=== PATIENT | male | born 1965 | race Caucasian/White ===

== ENCOUNTER → 2017-11-27 10:58 | Outpatient (CLI) | payer MEDICARE, MEDICAID, SELFPAY ==
[2017-11-27 13:09] LABS: Anion Gap 9 (5-15); BUN 8 mg/dL (7-18); BUN/Creat Ratio 10.7 RATIO (10-20); Calcium,Total 8.9 mg/dL (8.5-10.1); Chloride 104 mmol/L (98-107); Cholesterol 133 mg/dL (200); Creatinine, Serum 0.75 mg/dL (0.70-1.30); EST Glomerular Filtration Rate 115 mL/min (>60); Est Glom Filt Rate - Afr Amer 139 mL/min (>60); Glucose 154 mg/dL (74-106); High Density Lipoprotein 45 mg/dL; Potassium 3.7 mmol/L (3.5-5.1); Sodium Level 141 mmol/L (136-145); Triglycerides 149 mg/dL; Very Low Density Lipoprotein 30 mg/dL (5-40)
== END ==
PROVIDERS: Family Provider Family Medicine; PCP Family Medicine; Visit Provider Family Medicine
DX: E11.9 Type 2 diabetes mellitus without complications (principal)
CPT/HCPCS: 36415; 80048; 80061

== ENCOUNTER → 2018-02-12 12:18 | Outpatient (CLI) | payer MEDICARE, MEDICAID, SELFPAY ==
--- NOTE | 2018-02-12 12:22 | RAD_ITS ---
STUDY: X-RAY - RIGHT WRIST REASON FOR EXAM: Male, 53 years old. Pain for one month. TECHNIQUE: 2 view(s) of the wrist were obtained. COMPARISON: None. FINDINGS: Normal visualized distal radius and ulna. Normal radiocarpal articulation. Normal distal radioulnar articulation. Normal carpal bones. 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 Normal remaining intercarpal articulations. Normal carpometacarpal articulation of the thumb. Normal second through fifth carpometacarpal articulations. Normal visualized metacarpal bones. The soft tissue structures are unremarkable. There is no demonstrated osseous destructive lesion. There is no demonstrated acute fracture. 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 Electronically Signed: Tomi Padilla MD at 19:43 EDT , Service support ,
== END ==
PROVIDERS: Family Provider Family Medicine; PCP Family Medicine; Visit Provider Family Medicine
DX: M25.531 Pain in right wrist (principal)
CPT/HCPCS: 73100

== ENCOUNTER → 2018-05-31 14:19 | Outpatient (CLI) | payer MEDICARE, MEDICAID, SELFPAY ==
--- NOTE | 2018-05-31 14:21 | CT_ITS ---
STUDY: CT LUMBAR SPINE WITHOUT CONTRAST REASON FOR EXAM: Male, 53 years old. LBP, PAIN, N/T TO RT BUTTOCK DOWN LEG, MULTIPLE BACK INJURIES, HX-DB, NHL WITH CHEMO. RADIATION DOSAGE (If Supplied By Facility): CTDIvol = ( 20.85 ) mGy, DLP = ( 461.35 ) mGycm TECHNIQUE: The patient was scanned in a multi detector CT scanner. High resolution transaxial imaging was performed. Images were obtained from to . Sagittal and coronal images were reconstructed. Individualized dose optimization techniques were used for this CT. COMPARISON: MRI dated December 19, 2014 FINDINGS: Normal lumbar lordosis. There is minimal scoliosis Normal vertebrae of the lumbar spine. L1-2: There is minimal disc space narrowing and endplate spondylosis. There is no significant disc herniation, central canal or foraminal stenosis. L2-3: There is minimal disc space narrowing and endplate spondylosis. There is no significant disc herniation, central canal or foraminal stenosis. L3-4: There is mild disc space narrowing and endplate spondylosis. There is no significant disc herniation, central canal or foraminal stenosis. L4-5: There is mild disc space narrowing and endplate spondylosis. There is no significant disc herniation, central canal or foraminal stenosis. L5-S1: There is moderate disc space narrowing and endplates spondylosis. There is facet arthropathy with grade 1 anterolisthesis without significant central canal stenosis. There is mild bilateral foraminal stenosis. There is mild aortoiliac atherosclerosis. There is intact intraspinal catheter with its tip at T12 CT/Spine Lumbar without Contrast IMPRESSION: L5/S1: Degenerative grade 1 anterolisthesis with mild bilateral foraminal stenosis. Electronically Signed: Zehra Landa MD at 10:31 EST Tel , Service support ,
== END ==
PROVIDERS: Family Provider Family Medicine; PCP Family Medicine; Referring Provider Anesthesiology Pain Medicine; Visit Provider Anesthesiology Pain Medicine
DX: M54.9 Dorsalgia, unspecified (principal); M79.606 Pain in leg, unspecified
CPT/HCPCS: 72131

== ENCOUNTER 2018-09-18 08:15 | Day surgery (SDC) | payer MEDICARE, MEDICAID, SELFPAY ==
[2018-09-04 13:04] VITALS: BMI 31.1
[2018-09-18 08:36] VITALS: BP 135/90; PULSE 85; RESP 16; TEMP 36; O2SAT 95; BMI 31.1
[2018-09-18 08:57] LABS: Bedside Glucose 102 mg/dL (70-110)
--- NOTE | 2018-09-18 09:30 | IMM_PTH ---
PATIENT: KARINA PIMENTEL LOC: EN U#:[id number] AGE/SX: 53/M ROOM: RE09/18/[address]: Dr. Roberto Stokes MD : 1965 BED: DIS: 09/18/2018 SPEC #: [id number] RECD: 09/18/18 13:17 STATUS: RADHA FADIA #: [id number] ZORAIDA: 09/18/18 09:[address]: Roberto Stokes DEPT: IMMUNOHISTOCHEMISTRY RECD BY: Krissy Rush ENTERED: 09/18/18 13:17 SP TYPE: IMMUNO OTHR DR: Dr. Tereso Pereira MD Tissues: A - Stomach, NOS B - Esophageal mucous membrane Procedures: H Pylori (initial) P53 (initial) PHYSICIAN & INSTITUTION [place] [address] SPECIMEN INFORMATION: Tissue Source: A - Antrum biopsy, B - Gastroesophageal junction biopsy Clinical Info: Sanders's esophagus Specimen Number: [id number] A & B CPT code: 62477 x2 METHODOLOGY: Deparaffinized sections of prefer/formalin-fixed tissue or PAP/DQ stained slides are incubated with monoclonal/polyclonal antibodies/oligonucleotide probes. Localization is made via biotin free immunoperoxidase method. Appropriate controls are performed and reacted as expected. Results on target cell population are indicated in the following table: RESULTS: ANTIBODY / CLONE RESULT Block A H Pylori (polyclonal) negative Block B P53 (DO-7) positive, <10% dim These tests were developed and their performance characteristics determined by [facility]. They may not have been cleared or approved by the U.S. Food and Drug Administration. The FDA has determined that such clearance or approval is not necessary. INTERPRETATION: A. Antrum, biopsy: Negative for Helicobacter pylori organisms. B. Gastroesophageal junction biopsy: No evidence of malignancy.; AM:sam 09/20/18
--- NOTE | 2018-09-18 09:30 | EGD_PTH ---
PATIENT: KARINA PIMENTEL LOC: EN U#:[id number] AGE/SX: 53/M ROOM: RE09/18/[address]: Dr. Roberto Stokes MD : 1965 BED: DIS: 09/18/2018 SPEC #: [id number] RECD: 09/18/18 11:43 STATUS: RADHA FADIA #: [id number] ZORAIDA: 09/18/18 09:[address]: Roberto Stokes DEPT: SURGICAL PATHOLOGY RECD BY: Guillermo Lockhart ENTERED: 09/18/18 13:02 SP TYPE: EGD BIOPSY OTHR DR: Dr. Tereso Pereira MD Tissues: A - Gastric mucous membrane B - Gastric mucous membrane Procedures: Special Stain Group II Surgery Specimen Level IV Alcian Blue/PAS (control) HEADER OPER[place] [place] DIAGNOSIS: Sanders's esophagus TISSUE SUBMITTED: A - Antrum biopsy for H. pylori and path, B - GE junction biopsy MICROSCOPIC DIAGNOSIS A. Gastric antrum, biopsy: Mild chronic inflammation. B. 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 No evidence of dysplasia. Mild chronic inflammation. Focal changes of reflux. AM:sam 09/19/18 COMMENT A. The results of immunohistochemistry for Helicobacter pylori will be reported separately ([id number]). B. Alcian blue/PAS stain with matched control supports the above diagnosis. Immunohistochemistry ([id number]) supports the above diagnosis. MICROSCOPIC DESCRIPTION Slides are reviewed. GROSS DESCRIPTION A - Received in fixative is one container labeled with the patient's name and designated antrum biopsy. The specimen consists of one irregular fragment of light hernandez soft tissue that measures 0.3 x 0.2 x 0.1 cm. The specimen is totally submitted in one cassette. B - Received in fixative is one container labeled with the patient's name and designated GE junction biopsy. The specimen consists of multiple irregular fragments of light hernandez soft tissue that in aggregate measure 1 x 0.8 x 0.2 cm. The specimen is totally submitted in one cassette. / ANGELLA:sam 09/18/18 TC:4 CPT: 17273 x2, 35654
[2018-09-18 09:44] LABS: AST(SGOT) 27 U/L (15-37); Alanine Aminotransfer ALT/SGPT 55 U/L (16-61); Albumin, Serum 3.8 g/dL (3.2-5.0); Alkaline Phosphatase 137 U/L (45-117); Anion Gap 10 (5-15); BUN 7 mg/dL (7-18); BUN/Creat Ratio 8.4 RATIO (10-20); Bilirubin, Direct 0.14 mg/dL (0.00-0.30); Calcium,Total 9.1 mg/dL (8.5-10.1); Chloride 103 mmol/L (98-107); Cholesterol 140 mg/dL (200); Creatinine, Serum 0.83 mg/dL (0.70-1.30); EST Glomerular Filtration Rate 102 mL/min (>60); Est Glom Filt Rate - Afr Amer 123 mL/min (>60); Estimated Creatinine Clearance 77.66 ml/min; Globulin 4.1 g/dL (2.2-4.2); Glucose 106 mg/dL (74-106); High Density Lipoprotein 58 mg/dL; Potassium 4.1 mmol/L (3.5-5.1); Protein, Total 7.9 g/dL (6.4-8.2); Sodium Level 143 mmol/L (136-145); Triglycerides 95 mg/dL; Very Low Density Lipoprotein 19 mg/dL (5-40)
[2018-09-18 10:10] VITALS: BP 121/68; BP 135/90; PULSE 85; RESP 18; TEMP 36.2; O2SAT 95
--- NOTE | 2018-09-18 10:11 | OP.ENDO_ITS ---
Patient Name: Sanya Viramontes Procedure Date: 09/18/2018 9:46 AM Date of : 1965 Age: 53 Procedure: Upper GI endoscopy Indications: Surveillance for malignancy due to personal history of Sanders's esophagus Providers: Roberto Stokes MD Medicines: Monitored Anesthesia Care Patient Profile: This is a 53 year old male. Refer to note in patient chart for documentation of history and physical. Complications: No immediate complications. Estimated blood loss: Minimal. Procedure: Pre-Anesthesia Assessment: - Prior to the procedure, a History and Physical was performed, and patient medications and allergies were reviewed. The patient's tolerance of previous anesthesia was also reviewed. The risks and benefits of the procedure and the sedation options and risks were discussed with the patient. All questions were answered, and informed consent was obtained. Prior Anticoagulants: The patient has taken no previous anticoagulant or antiplatelet agents. After reviewing the risks and benefits, the patient was deemed in satisfactory condition to undergo the procedure. After obtaining informed consent, the endoscope was passed under direct vision. Throughout the procedure, the patient's blood pressure, pulse, and oxygen saturations were monitored continuously. The gastroscope was introduced through the mouth, and advanced to the second part of duodenum. The upper GI endoscopy was accomplished without difficulty. The patient tolerated the procedure well. Scope In: 9:57:21 AM Scope Out: 10:04:19 AM Total Procedure Duration Time 0 hours 6 minutes 58 seconds Findings: There were esophageal mucosal changes secondary to established long-segment Sanders's disease present in the lower third of the esophagus. The maximum longitudinal extent of these mucosal changes was 7 cm in length. Mucosa was biopsied with a cold forceps for histology in 4 quadrants at intervals of 1.5 cm in the lower third of the esophagus. One specimen bottle was sent to pathology. Mild inflammation characterized by erythema was found in the first portion of the duodenum. The exam was otherwise without abnormality. Impression: - Esophageal mucosal changes secondary to established long-segment Sanders's disease. Biopsied. - Duodenitis. - The examination was otherwise normal. Recommendation: - Await pathology results. - Repeat upper endoscopy in 2 years for surveillance. - Resume previous diet. - Discharge patient to home. - Continue present medications. Procedure Code(s): --- Professional --- 03071, Esophagogastroduodenoscopy, flexible, transoral; with biopsy, single or multiple Diagnosis Code(s): --- Professional --- K22.70, Sanders's esophagus without dysplasia K29.80, Duodenitis without bleeding CPT copyright 2017 [employer]. All rights reserved. The codes documented in this report are preliminary and upon fish hatchery manager review may be revised to meet current compliance requirements. Roberto Stokes MD 09/18/2018 10:11:26 AM This report has been signed electronically. Number of Addenda: 0 Note Initiated On: 09/18/2018 9:46 AM
[2018-09-18 10:15] VITALS: BP 113/75; BP 135/90; PULSE 78; RESP 18; O2SAT 97
[2018-09-18 10:20] VITALS: BP 116/80; BP 135/90; PULSE 75; RESP 18; O2SAT 96
[2018-09-18 10:25] VITALS: BP 132/83; BP 135/90; PULSE 80; RESP 18; TEMP 36.2; O2SAT 97
[2018-09-18 10:46] VITALS: BP 135/90
== END 2018-09-18 10:50 | disposition home or self-care (01) ==
LOC: EN 08:16 → AC 08:17
PROVIDERS: Family Provider Family Medicine; PCP Family Medicine; Referring Provider Surgery; Visit Provider Surgery
PROC: 0DJ08ZZ Inspection of Upper Intestinal Tract, Via Natural or Artificial Opening Endoscopic (ICD-10-PCS; CPT 43235; principal; 2018-09-18 09:25)
DX: K22.70 Barrett's esophagus without dysplasia (principal); K29.80 Duodenitis without bleeding; K44.9 Diaphragmatic hernia without obstruction or gangrene; G89.29 Other chronic pain; E11.9 Type 2 diabetes mellitus without complications; E78.00 Pure hypercholesterolemia, unspecified; M19.90 Unspecified osteoarthritis, unspecified site; E66.3 Overweight; Z68.31 Body mass index [BMI] 31.0-31.9, adult; Z79.84 Long term (current) use of oral hypoglycemic drugs; Z79.1 Long term (current) use of non-steroidal anti-inflammatories (NSAID); Z79.899 Other long term (current) drug therapy; Z87.891 Personal history of nicotine dependence; Z85.72 Personal history of non-Hodgkin lymphomas; Z86.2 Personal history of diseases of the blood and blood-forming organs and certain disorders involving the immune mechanism; Z96.642 Presence of left artificial hip joint
CPT/HCPCS: 43239; 36415; 80048; 80061; 80076; 82962; 88305; 88313; 88342; J7120

== ENCOUNTER → 2019-02-22 13:34 | Outpatient (CLI) | payer MEDICARE, MEDICAID, SELFPAY ==
[2019-02-22 15:58] LABS: Absolute Lymphocyte Count 2.94 X10^3/uL (0.83-4.51); Absolute Neutrophil Count 8.6 X10^3/uL (2.0-7.7); Basophil# 0.09 X10^3/uL; Basophil% 0.7 % (0-1); Eosinophil# 0.17 X10^3/uL; Eosinophils% 1.3 % (0-5); Hematocrit 42.2 % (40-54); Hemoglobin 14.1 g/dL (13.0-16.5); Lymphocyte # 2.94 X10^3/ul (4.0); Lymphocyte % 23.1 % (19-41); Mean Corp Hgb Conc 33.4 g/dL (32-36); Mean Corpuscular Volume 92.7 fL (80-94); Mean Platelet Vol. 10.6 fl (6.2-12.0); Monocyte# 0.79 X10^3/uL; Monocyte% 6.2 % (0-10); NRBC Flagged by Analyzer 0 % (0-5); Neutrophil # 8.55 X10^3/uL (2.7-7.7); Neutrophil % 67.1 % (47-70); Platelet Count 347 K/mm3 (150-450); RBC Distribution Width CV 12.2 % (11.6-14.6); RBC Distribution Width SD 41.8 fl (35.1-43.9); Red Blood Count 4.55 M/mm3 (4.6-6.2); White Blood Count 12.8 K/mm3 (4.4-11.0)
[2019-02-22 16:08] LABS: Anion Gap 13 (5-15); BUN 9 mg/dL (7-18); BUN/Creat Ratio 10.8 RATIO (10-20); Chloride 102 mmol/L (98-107); Cholesterol 153 mg/dL (200); Creatinine, Serum 0.83 mg/dL (0.70-1.30); EST Glomerular Filtration Rate 101 mL/min (>60); Est Glom Filt Rate - Afr Amer 123 mL/min (>60); Glucose 165 mg/dL (74-106); High Density Lipoprotein 61 mg/dL; Potassium 4.1 mmol/L (3.5-5.1); Sodium Level 142 mmol/L (136-145); Triglycerides 102 mg/dL; Very Low Density Lipoprotein 20 mg/dL (5-40)
[2019-02-22 17:02] LABS: Hemoglobin A1c 7.3 % (4.2-6.3)
== END ==
PROVIDERS: Family Provider Family Medicine; PCP Family Medicine; Referring Provider Family Medicine; Visit Provider Family Medicine
DX: E11.9 Type 2 diabetes mellitus without complications (principal); E78.5 Hyperlipidemia, unspecified; M19.90 Unspecified osteoarthritis, unspecified site; Z85.6 Personal history of leukemia
CPT/HCPCS: 36415; 80048; 80061; 83036; 85025

== ENCOUNTER → 2019-05-29 11:18 | Outpatient (CLI) | payer MEDICARE, MEDICAID, SELFPAY ==
[2019-05-07 12:56] VITALS: BMI 31.1
[2019-05-29 12:24] LABS: Absolute Lymphocyte Count 3.46 X10^3/uL (0.83-4.51); Absolute Neutrophil Count 7.1 X10^3/uL (2.0-7.7); Basophil# 0.09 X10^3/uL; Basophil% 0.8 % (0-1); Eosinophil# 0.21 X10^3/uL; Eosinophils% 1.8 % (0-5); Hematocrit 43.5 % (40-54); Hemoglobin 14.4 g/dL (13.0-16.5); Lymphocyte # 3.46 X10^3/ul (4.0); Lymphocyte % 29.1 % (19-41); Mean Corp Hgb Conc 33.1 g/dL (32-36); Mean Corpuscular Hgb 30.6 pg (27.0-32.0); Mean Corpuscular Volume 92.4 fL (80-94); Mean Platelet Vol. 10.2 fl (6.2-12.0); Monocyte# 0.94 X10^3/uL; Monocyte% 7.9 % (0-10); NRBC Flagged by Analyzer 0 % (0-5); Neutrophil # 7.05 X10^3/uL (2.7-7.7); Neutrophil % 59.1 % (47-70); Platelet Count 326 K/mm3 (150-450); RBC Distribution Width CV 13.4 % (11.6-14.6); RBC Distribution Width SD 45.5 fl (35.1-43.9); Red Blood Count 4.71 M/mm3 (4.6-6.2); White Blood Count 11.9 K/mm3 (4.4-11.0)
[2019-05-29 13:15] LABS: Anion Gap 9 (5-15); BUN 15 mg/dL (7-18); BUN/Creat Ratio 20.3 RATIO (10-20); Calcium,Total 9.1 mg/dL (8.5-10.1); Chloride 103 mmol/L (98-107); Cholesterol 192 mg/dL (200); Creatinine, Serum 0.74 mg/dL (0.70-1.30); EST Glomerular Filtration Rate 116 mL/min (>60); Est Glom Filt Rate - Afr Amer 141 mL/min (>60); Glucose 91 mg/dL (74-106); High Density Lipoprotein 67 mg/dL; Potassium 3.6 mmol/L (3.5-5.1); Sodium Level 139 mmol/L (136-145); Triglycerides 109 mg/dL; Very Low Density Lipoprotein 22 mg/dL (5-40)
== END ==
PROVIDERS: Family Provider Family Medicine; PCP Family Medicine; Visit Provider Family Medicine
DX: C82.90 Follicular lymphoma, unspecified, unspecified site (principal); E11.9 Type 2 diabetes mellitus without complications
CPT/HCPCS: 36415; 80048; 80061; 85025

== ENCOUNTER → 2019-12-24 10:07 | Outpatient (CLI) | payer MEDICARE, MEDICAID, SELFPAY ==
[2019-05-07 12:56] VITALS: BMI 31.1
[2019-12-24 12:42] LABS: Anion Gap 6 (5-15); BUN 16 mg/dL (7-18); Calcium,Total 9.1 mg/dL (8.5-10.1); Chloride 107 mmol/L (98-107); Cholesterol 196 mg/dL (200); Creatinine, Serum 0.76 mg/dL (0.70-1.30); EST Glomerular Filtration Rate 112 mL/min (>60); Est Glom Filt Rate - Afr Amer 136 mL/min (>60); Glucose 119 mg/dL (74-106); High Density Lipoprotein 75 mg/dL; Potassium 3.9 mmol/L (3.5-5.1); Sodium Level 141 mmol/L (136-145); Triglycerides 95 mg/dL; Very Low Density Lipoprotein 19 mg/dL (5-40)
[2019-12-24 12:53] LABS: Hemoglobin A1c 8.3 % (3.8-5.6)
== END ==
PROVIDERS: PCP Family Medicine; Visit Provider Family Medicine
DX: I10 Essential (primary) hypertension (principal); E11.9 Type 2 diabetes mellitus without complications; E78.5 Hyperlipidemia, unspecified
CPT/HCPCS: 36415; 80048; 80061; 83036

== ENCOUNTER → 2020-03-17 13:24 | Outpatient (CLI) | payer MEDICARE, MEDICAID, SELFPAY ==
[2019-05-07 12:56] VITALS: BMI 31.1
[2020-03-17 15:49] LABS: Hemoglobin A1c 6.8 % (3.8-5.6)
[2020-03-17 15:50] LABS: Anion Gap 5 (5-15); BUN 12 mg/dL (7-18); BUN/Creat Ratio 15.8 RATIO (10-20); Calcium,Total 8.9 mg/dL (8.5-10.1); Chloride 104 mmol/L (98-107); Cholesterol 171 mg/dL (200); Creatinine, Serum 0.76 mg/dL (0.70-1.30); EST Glomerular Filtration Rate 112 mL/min (>60); Est Glom Filt Rate - Afr Amer 136 mL/min (>60); Glucose 96 mg/dL (74-106); High Density Lipoprotein 61 mg/dL; Potassium 3.7 mmol/L (3.5-5.1); Sodium Level 138 mmol/L (136-145); Triglycerides 122 mg/dL; Very Low Density Lipoprotein 24 mg/dL (5-40)
[2020-03-17 15:59] LABS: Microalbumin,Random Urine 19.6 mg/L (NO RANGE EST.); Microalbumin:Creatinine Ratio 47.3 mg/g CRE (<30 mg/g CRE)
== END ==
PROVIDERS: PCP Family Medicine; Referring Provider Family Medicine; Visit Provider Family Medicine
DX: E11.9 Type 2 diabetes mellitus without complications (principal)
CPT/HCPCS: 36415; 80048; 80061; 82043; 82570; 83036

== ENCOUNTER → 2020-12-21 09:01 | Outpatient (CLI) | payer MEDICARE, MEDICAID, SELFPAY ==
[2019-05-07 12:56] VITALS: BMI 31.1
[2020-12-21 14:27] LABS: Anion Gap 5 (5-15); BUN 10 mg/dL (7-18); BUN/Creat Ratio 12.6 RATIO (10-20); Calcium,Total 9.1 mg/dL (8.5-10.1); Chloride 106 mmol/L (98-107); Cholesterol 178 mg/dL (200); EST Glomerular Filtration Rate 106 mL/min (>60); Est Glom Filt Rate - Afr Amer 129 mL/min (>60); Glucose 121 mg/dL (74-106); High Density Lipoprotein 57 mg/dL; Potassium 3.9 mmol/L (3.5-5.1); Sodium Level 140 mmol/L (136-145); Triglycerides 104 mg/dL; Very Low Density Lipoprotein 21 mg/dL (5-40)
[2020-12-22 01:51] LABS: Microalbumin,Random Urine 23.9 mg/L (NO RANGE EST.); Microalbumin:Creatinine Ratio 30.3 mg/g CRE (<30 mg/g CRE)
== END ==
PROVIDERS: PCP Family Medicine; Visit Provider Family Medicine
DX: E11.9 Type 2 diabetes mellitus without complications (principal)
CPT/HCPCS: 36415; 80048; 80061; 82043; 82570

== ENCOUNTER → 2021-04-15 11:06 | Outpatient (CLI) | payer MEDICARE, MEDICAID, SELFPAY ==
[2021-04-15 12:32] LABS: Hematocrit 45.2 % (40-54); Hemoglobin 15.1 g/dL (13.0-16.5); Mean Corp Hgb Conc 33.4 g/dL (32-36); Mean Corpuscular Hgb 31.1 pg (27.0-32.0); Mean Corpuscular Volume 93.2 fL (80-94); Mean Platelet Vol. 10.5 fl (6.2-12.0); Platelet Count 286 K/mm3 (150-450); RBC Distribution Width CV 12.7 % (11.6-14.6); RBC Distribution Width SD 43.4 fl (35.1-43.9); Red Blood Count 4.85 M/mm3 (4.6-6.2)
[2021-04-15 13:11] LABS: Vitamin B12 646 pg/mL (211-911)
[2021-04-15 13:20] LABS: ALB/GLOB Ratio 0.9 RATIO (0.9-2.4); AST(SGOT) 41 U/L (15-37); Alanine Aminotransfer ALT/SGPT 92 U/L (16-61); Albumin, Serum 3.7 g/dL (3.2-5.0); Alkaline Phosphatase 155 U/L (45-117); Anion Gap 7 (5-15); BUN 13 mg/dL (7-18); BUN/Creat Ratio 19.1 RATIO (10-20); Calcium,Total 8.7 mg/dL (8.5-10.1); Chloride 107 mmol/L (98-107); Creatinine, Serum 0.68 mg/dL (0.70-1.30); EST Glomerular Filtration Rate 127 mL/min (>60); Est Glom Filt Rate - Afr Amer 154 mL/min (>60); Globulin 3.9 g/dL (2.2-4.2); Glucose 151 mg/dL (74-106); Potassium 3.7 mmol/L (3.5-5.1); Protein, Total 7.6 g/dL (6.4-8.2); Sodium Level 142 mmol/L (136-145); Thyroid Stim Hormone (TSH) 1.86 uIU/mL (0.358-3.74)
== END ==
PROVIDERS: PCP Family Medicine; Referring Provider Psychiatry & Neurology Neurology; Visit Provider Psychiatry & Neurology Neurology
DX: T84.093A Other mechanical complication of internal left knee prosthesis, initial encounter (principal); E11.9 Type 2 diabetes mellitus without complications; G56.01 Carpal tunnel syndrome, right upper limb
CPT/HCPCS: 36415; 80053; 82607; 82746; 84443; 85027

== ENCOUNTER → 2021-04-21 12:04 | Outpatient (CLI) | payer MEDICARE, MEDICAID, SELFPAY ==
[2021-04-25 09:07] LABS: HEPATITIS B SURFACE AG Negative (Negative); Hepatitis A IgM Antibody Negative (Negative); Hepatitis B Core AB IgM Negative (Negative)
[2021-04-25 10:33] LABS: Hep C Antibodies <0.1 s/co ratio (0.0-0.9)
== END ==
PROVIDERS: PCP Family Medicine; Referring Provider Psychiatry & Neurology Neurology; Visit Provider Psychiatry & Neurology Neurology
DX: R74.01 Elevation of levels of liver transaminase levels (principal)
CPT/HCPCS: 36415; 80074

== ENCOUNTER → 2021-07-05 11:31 | Outpatient (CLI) | payer MEDICARE, MEDICAID, SELFPAY ==
--- NOTE | 2021-07-05 12:21 | NEURO ---
NCS and/or EMG Patient Report Ordering Doctor: Tyrese Chapman DATE OF SERVICE: 07/05/21 Indication: Wrist pain and intermittent numbness of digits 1-4 on the right. Evaluate for median neuropathy at the wrist. Findings: Nerve conduction studies were performed in the right and left upper extremities. The right median motor study recording the abductor pollicis brevis showed a normal amplitude, borderline distal latency and borderline conduction velocity. The right ulnar motor study recording the abductor digiti minimi showed a normal amplitude, normal distal latency and normal conduction velocity. No conduction block or focal slowing was present across the elbow. The right median sensory response recording digit two showed a reduced amplitude, prolonged latency and markedly slowed conduction velocity. The right ulnar sensory response recording digit five showed a normal amplitude, latency and conduction velocity. The right radial sensory response recording over the extensor snuff box showed a normal amplitude, latency and conduction velocity. Right median-ulnar lumbrical / interosseous motor latencies showed a prolonged median latency compared to the ulnar. Needle EMG of the right upper extremity and cervical paraspinal muscles was performed. No denervation was seen in any muscle. Motor units in the right abductor pollicis brevis were slightly large and long duration with normal recruitment. All other motor unit morphology, activation and recruitment patterns were normal. Impression: This is an abnormal study. There is electrophysiologic evidence of median neuropathy across the right wrist. The pathophysiology is primarily demyelination with some evidence of chronic reinnervation in the thenar muscles. These findings would be compatible with the clinical diagnosis of carpal tunnel syndrome. In addition, there is no electrophysiologic evidence of a superimposed cervical radiculopathy in the right upper extremity. Wale Recinos D.O. Multi Select Codes Neurology Neurology Interp Codes: 47834-62 Musc test done w/n test comp (interp) and 70529-70 Nr cndj test 7-8 studies (interp)
== END ==
PROVIDERS: PCP Family Medicine; Visit Provider Psychiatry & Neurology Neurology
DX: G56.01 Carpal tunnel syndrome, right upper limb (principal); M54.2 Cervicalgia
CPT/HCPCS: 95886; 95910

== ENCOUNTER → 2021-07-17 07:34 | Outpatient (CLI) | payer MEDICARE, MEDICAID, SELFPAY ==
--- NOTE | 2021-07-17 07:35 | US_ITS ---
STUDY: ABDOMINAL ULTRASOUND - RIGHT UPPER QUADRANT REASON FOR VISIT: Male, 56 years old elevated LFTs TECHNIQUE: Ultrasound evaluation of the right upper quadrant was performed with real-time and static tyson-scale imaging. TECHNICAL QUALITY: Adequate. COMPARISON: None. FINDINGS: Liver: The liver measures 17 cm. There is increased echogenicity consistent with fatty infiltration. The bile ducts are within normal limits. There is hepatic color flow. The direction of portal flow is hepatopetal. There is no demonstrated mass lesion. Gallbladder: Normal distended gallbladder. The gallbladder wall measures 2 mm. There is a negative sonographic Horton''s sign. There is no pericholecystic fluid. There are no gallstones. Common Bile Duct (C.B.D.): The common bile duct measures 4 mm. Pancreas: Normal size of the head, body and tail of the pancreas. There is increased echogenicity of the pancreas. There is no demonstrated pancreatic mass or cyst. Right Kidney: Normal size of the right kidney. The right kidney measures 10.4 x 5.8 x 4.4 cm. Normal renal cortex. The right cortex measures 1.5 cm. There is no demonstrated renal mass or cyst. There is no right hydronephrosis. US/Liver IMPRESSION: Fatty liver, no discrete lesion Nonspecific echogenic pancreas Electronically Signed: Tomi Lyons MD at 8:26 EST , Service support ,
== END ==
PROVIDERS: PCP Family Medicine; Visit Provider Psychiatry & Neurology Neurology
DX: R74.01 Elevation of levels of liver transaminase levels (principal)
CPT/HCPCS: 76705

== ENCOUNTER 2021-09-30 06:18 | Day surgery (SDC) | payer MEDICARE, SELFPAY ==
--- NOTE | 2021-09-30 06:30 | PCM.HP.BLA ---
History and Physical Date of Admission: 09/30/21 Intake Visit Reasons: Discuss Carpal Tunnel Surgery Chief Complaint: right carpal tunnel Maintenance Supervisor Required: No Is patient in pain?: No Allergies No Known Allergies Allergy (Verified 09/14/21 13:19) Medications atorvastatin 10 mg PO DAILY 08/31/16 [History Confirmed 09/14/21] dexlansoprazole 60 mg PO DAILY 08/31/16 [History Confirmed 09/14/21] tizanidine 4 mg PO BID PRN 08/31/16 [History Confirmed 09/14/21] diclofenac sodium 1 % topical gel 2 g TOPICAL ONCE PRN 02/27/18 [History Confirmed 09/14/21] naproxen sodium 220 mg tablet 220 mg PO BID PRN 09/04/18 [History Confirmed 09/14/21] biotin 10 mg tablet 10 mg PO DAILY 04/15/21 [History Confirmed 09/14/21] empagliflozin 25 mg tablet 25 mg PO DAILY 04/15/21 [History Confirmed 09/14/21] famotidine 40 mg tablet 40 mg PO DAILY 04/15/21 [History Confirmed 09/14/21] metformin 500 mg tablet 500 mg PO DAILY 04/15/21 [History Confirmed 09/14/21] morphine 250 mg/25 mL in 0.9 % sodium chloride RESIDENTIAL INTERIOR DESIGNER syringe 10 mg IJ CONT 04/15/21 [History Confirmed 09/14/21] pregabalin 100 mg capsule 100 mg PO TID 04/15/21 [History Confirmed 09/14/21] glimepiride 1 mg tablet 2 mg PO DAILY tab 09/14/21 [History Confirmed 09/14/21] PFSH Medical History Chronic pain Chronic pain disorder Diabetes Failed total left knee replacement GERD (gastroesophageal reflux disease) High cholesterol Kidney stones Medical management NHL (non-Hodgkin's lymphoma) Osteoarthritis Overweight (BMI 25.0-29.9) pain pump trial Surgical History History of surgical biopsy s/p pain pump Status post left foot surgery Status post left hip replacement Total knee replacement status Family History Mother Cancer Father Diabetes Heart disease CVA (cerebral vascular accident) Social History (Reviewed 09/14/21 @ 13:19 by Jany Lopes Smoking Status: Former smoker Tobacco: How many years used: 20 Electronic Cigarette Use: not used how long ago did patient quit smoking: about 15 years ago alcohol intake: never substance use type: marijuana and other details: Uses edibles or CBC occationally for pain HPI HPI HPI: KARINA PIMENTEL, is a 56 M who presents to the office today for surgical discussion regarding right carpal tunnel syndrome. He was seen by Dr. Moreland but then was released from that practice. Clinical history and physical exam findings and testing were felt to be consistent with right carpal tunnel syndrome. This included an EMG on July 05, 2021 with findings consistent with right carpal tunnel syndrome. He has numbness first through fourth digits. 07/05/2021 EMG: This is an abnormal study. There is electrophysiologic evidence of median neuropathy across the right wrist. The pathophysiology is primarily demyelination with some evidence of chronic reinnervation in the thenar muscles. These findings would be compatible with the clinical diagnosis of carpal tunnel syndrome. In addition, there is no electrophysiologic evidence of a superimposed cervical radiculopathy in the right upper extremity. The patient is disabled. He is right arm dominant. He still does some work around the house and some jennifer work. He did not have a otr company driver to bring him to his surgery at the said date and he became upset with the 6th grade teacher/executive secretary. He claims that is why he was released from the orthopedic office. He has not had any previous surgery in the right hand. Is not on any anticoagulants. He does have a chronic pain disorder. ROS General General: Yes weight change; No appetite, fatigue, colon cancer, breast cancer or weakness HEENT HEENT: Yes difficulty swallowing; No eye injury, eye surgery, swollen glands or hoarseness Endo Endocrine: Yes diabetes mellitus; No thyroid disease, thyroid cancer, Hair loss, heat intolerance or cold intolerance Skin Skin: Yes rash; No changing moles Breast Breast: No left breast lump, right breast lump, nipple discharge, breast pain, abnormal mammogram, abnormal US or breast enlargement Musc Musculoskeletal: Yes back problems and arthritis; No rheumatoid arthritis, gout or joint pain Cardio Cardiovascular: No murmur, pacemaker, heart disease, atrial fibrillation, high blood pressure, heart attack, heart stent, palpitations, shortness of breat with exertion or chest pain Psych Psychiatric: No depression, anxiety or hearing voices Resp Respiratory: No shortness of breath, No sleep apnea, No cough, No COPD, No asthma, No emphysema and No wheezing Gastro Gastrointestinal: No abdominal pain, No nausea or vomiting, No diarrhea, No constipation, No blood in stool, Yes acid reflux, Yes hemorrhoids, No ulcers, No gallbladder problem and No black,tarry stools Fareed Hematologic: No blood thinners, No blood disorders, No bleeding, No anemia and No blood clots Neuro Neurologic: No system reviewed and no additional complaints, except as documented, No as per HPI, No abnormal gait, No abnormal hearing, No abnormal movements, No abnormal speech, No behavioral changes, No burning sensations, No confusion, No convulsions, No disequilibrium, No dizziness, No localized weakness, No frequent falls, No headache(s), No lack of coordination, No loss of vision, No memory loss, Yes numbness, No other visual disturbances, No radicular pain, No restless legs, No sensory deficit, No syncope, Yes tingling, No tremor(s), No weakness and No other Exam Const General: cooperative, comfortable and no acute distress Nutritional Appearance: average body habitus Orientation: alert and awake [facility] Head: normal to inspection Eyes General: appearance normal, both eyes and all related structures Neck Neck: normal visual inspection Resp Effort & Inspection: normal respiratory effort Auscultation: clear to auscultation bilaterally Cardio Rate: regular rate GI Inspection: normal to inspection Palpation: soft and no hepatosplenomegaly Musc Cervical Spine: normal cervical lordosis Skin General: no rashes or lesions noted Neuro General: patient alert and patient awake Extrem Other: Right thenar eminence slightly atrophic as compared to the left. [employer] strength bilaterally diminished slightly more so on the right. Light touch sensation diminished right first through fourth digits. Positive Tinel's sign Psych Appearance: grossly normal Assessment and Plan Assessment and Plan (1) Carpal tunnel syndrome of right wrist: Status: Acute Plan - Dr. Oseas Harper MD: I have offered the patient a right carpal tunnel release done under Funk block anesthesia. I have described him the technique, benefit, risk of alternatives. Absolutely no guarantees of success of been offered. He is aware that the innate damage already done to the nerve may partially recover. The procedure of carpal tunnel release is to inhibit further deterioration. He has had an opportunity to ask and have questions answered. We will schedule and proceed at his discretion. Copy: Dr. Tereso Harper M.D., F.A.C.S. I have re-examined the patient. There are no clinical changes since date of exam. Oseas Harper M.D., F.A.C.S.
--- NOTE | 2021-09-30 06:30 | EX.PCM.DISCH ---
Discharge Instructions Diet Discharge Diet: No restrictions Activity Discharge Activity: May Not Drive (No driving for 1 day.) and May Shower (May shower if your right arm is carefully wrapped in a plastic bag to keep clean and dry) Lifting Restrictions: You will not want to perform any lifting with the right hand. Additional Activity Instructions:: Elevate your right arm for comfort and to limit swelling. Follow Up Care Please Follow Up With: Oseas Harper MD When: Please contact the office for a follow-up appointment in 7 days. [phone] Test Results: Test results from this visit will be discussed in further detail at your follow-up appointment, if applicable. Discharge Plan Admission Attending Provider: Oseas Harper Primary Care Provider: Tereso Pereira Discharge Orders/Prescriptions Prescriptions: No Action naproxen sodium [Aleve] 220 mg tablet 220 mg PO BID PRN (Reason: Pain) RF: 0 pregabalin 100 mg capsule 100 mg PO TID RF: 0 metformin 500 mg tablet 500 mg PO DAILY RF: 0 Jardiance 25 mg tablet 25 mg PO DAILY RF: 0 famotidine 40 mg tablet 40 mg PO DAILY RF: 0 biotin 10 mg tablet 10 mg PO DAILY RF: 0 glimepiride 1 mg tablet 4 mg PO DAILY RF: 0 tizanidine 2 MG tablet 4 mg PO BID PRN (Reason: Pain) RF: 0 atorvastatin 10 MG tablet 10 mg PO DAILY RF: 0 dexlansoprazole 60 MG capsule,biphase delayed releas 60 mg PO DAILY RF: 0 morphine in 0.9 % sodium chlor 250 mg/25 mL pt controlled analgesia syring 10 mg IJ CONT RF: 0 simethicone [Gas-X Extra Strength] 125 mg Capsule 125 mg PO DAILY RF: 0
[2021-09-30 06:47] VITALS: BP 148/81; PULSE 72; RESP 16; TEMP 36.5; O2SAT 97; BMI 32.5
[2021-09-30 06:56] LABS: Bedside Glucose 192 mg/dL (74-106)
[2021-09-30] MEDS: Lactated Ringers 1,000 ML 15 ML IV (07:14)
[2021-09-30] MEDS: Bupivacaine Mpf 0.5% 30 ML VIAL (07:46)
[2021-09-30] MEDS: BACITRACIN/POLYMYXIN B 15 GM Tube 1 APPLIC (07:46)
--- NOTE | 2021-09-30 07:55 | PCM.OPRPT ---
Problems Associated Problem List Diagnoses (1) Carpal tunnel syndrome of right wrist: Report of Operation Date of Procedure: 09/30/21 Pre-Operative Diagnosis: Right carpal tunnel syndrome Post-Operative Diagnosis: Same Surgery/Procedure Performed:: Right carpal tunnel release Description of Surgical Findings:: Timeout informed consent was obtained. 56-year-old gentleman was taken to the operating placed on the table underwent [place] block anesthesia over the right of extremity tourniquet pressure to 250 mmHg pressure for 22 minutes. The right hand was sterilely prepped and draped. Curvilinear incision was made in the base the right palm sharp dissection carried down through the subcu tissue palmar fascia identified carefully incised it was incised to the proximal wrist crease along the fourth ray was incised to the mid palm. Good release was felt to have been achieved. Subdermal tissues approximated interrupted 3-0 chromic. Skin edges approximated simple sutures of 4-0 nylon. Topical antibiotic ointment Telfa 4 x 4 soft roll Tono wrap applied. Sponge and instrument and needle counts were reported the surgeon to be correct. It is of note that prior to placing the dressings 4 cc of 0.5% Marcaine was used additionally at the site as a local anesthetic. Specimens none. Drains none. Blood loss minimal. He was taken to the recovery room in satisfactory addition without apparent complication Oseas Harper M.D., F.A.C.S. Surgeon: Oseas Harper Type of Anesthesia: BlockSantos Anesthesiologist: Autumn Singh
[2021-09-30 08:05] VITALS: BP 114/76; BP 148/81; PULSE 66; TEMP 36.8; O2SAT 96
[2021-09-30 08:10] VITALS: BP 121/74; BP 148/81; PULSE 68; RESP 18; O2SAT 95
[2021-09-30 08:15] VITALS: BP 119/70; BP 148/81; PULSE 68; RESP 18; O2SAT 94
[2021-09-30 08:20] VITALS: BP 129/77; BP 148/81; PULSE 65; RESP 18; TEMP 36.5; O2SAT 94
[2021-09-30 09:02] VITALS: BP 112/74; BP 148/81; PULSE 64; RESP 16; TEMP 36.3; O2SAT 93
[2021-09-30 09:29] LABS: Absolute Lymphocyte Count 3.13 X10^3/uL (0.83-4.51); Absolute Neutrophil Count 4.3 X10^3/uL (2.0-7.7); Basophil% 1.1 % (0-1); Eosinophil# 0.39 X10^3/uL; Eosinophils% 4.4 % (0-5); Hemoglobin 14.7 g/dL (13.0-16.5); Lymphocyte # 3.13 X10^3/ul (0.83-4.51); Lymphocyte % 35.7 % (19-41); Mean Corp Hgb Conc 34.2 g/dL (32-36); Mean Corpuscular Hgb 31.1 pg (27.0-32.0); Mean Corpuscular Volume 90.9 fL (80-94); Mean Platelet Vol. 10.1 fl (6.2-12.0); Monocyte# 0.83 X10^3/uL; Monocyte% 9.5 % (0-10); NRBC Flagged by Analyzer 0 % (0-5); Neutrophil # 4.25 X10^3/uL (2.7-7.7); Neutrophil % 48.5 % (47-70); Platelet Count 254 K/mm3 (150-450); RBC Distribution Width CV 12.6 % (11.6-14.6); RBC Distribution Width SD 41.6 fl (35.1-43.9); Red Blood Count 4.73 M/mm3 (4.6-6.2); White Blood Count 8.8 K/mm3 (4.4-11.0)
[2021-09-30 09:59] LABS: Anion Gap 5 (5-15); BUN 13 mg/dL (7-18); BUN/Creat Ratio 16.8 RATIO (10-20); Calcium,Total 9.2 mg/dL (8.5-10.1); Chloride 105 mmol/L (98-107); Cholesterol 166 mg/dL (200); Creatinine, Serum 0.78 mg/dL (0.70-1.30); EST Glomerular Filtration Rate 109 mL/min (>60); Est Glom Filt Rate - Afr Amer 132 mL/min (>60); Estimated Creatinine Clearance 76.36 ml/min; Glucose 163 mg/dL (74-106); High Density Lipoprotein 55 mg/dL; Potassium 4.1 mmol/L (3.5-5.1); Sodium Level 138 mmol/L (136-145); Triglycerides 145 mg/dL; Very Low Density Lipoprotein 29 mg/dL (5-40)
[2021-09-30 10:34] LABS: Microalbumin,Random Urine 20.6 mg/L (NO RANGE EST.); Microalbumin:Creatinine Ratio 40.6 mg/g CRE (<30 mg/g CRE)
== END 2021-09-30 23:59 | disposition home or self-care (01) ==
LOC: SDC 06:19 → AC 06:21
PROVIDERS: PCP Family Medicine; Referring Provider Surgery; Visit Provider Surgery
PROC: (CPT 64721; principal; 2021-09-30 07:15)
DX: G56.01 Carpal tunnel syndrome, right upper limb (principal); E11.9 Type 2 diabetes mellitus without complications; G89.29 Other chronic pain; E78.00 Pure hypercholesterolemia, unspecified; Z79.84 Long term (current) use of oral hypoglycemic drugs; Z87.891 Personal history of nicotine dependence; Z79.1 Long term (current) use of non-steroidal anti-inflammatories (NSAID); K21.9 Gastro-esophageal reflux disease without esophagitis; Z79.899 Other long term (current) drug therapy; E66.3 Overweight; Z68.32 Body mass index [BMI] 32.0-32.9, adult; Z96.642 Presence of left artificial hip joint
CPT/HCPCS: 64721; 36415; 80048; 80061; 82043; 82570; 82962; 85025; J7120; A4216

== ENCOUNTER 2021-10-02 08:02 | Emergency (ER) | payer OTHER, SELFPAY ==
[2021-10-02 08:03] VITALS: BP 148/83; PULSE 86; RESP 16; TEMP 37.1; O2SAT 95; BMI 31.6
[2021-10-02 08:05] VITALS: BP 148/83; PULSE 86; RESP 16; TEMP 37.1; O2SAT 95
--- NOTE | 2021-10-02 08:37 | EX.ED.DYSGE1 ---
HPI History of Present Illness Chief Complaint: Flank Pain Informant: patient Onset/Context/Timing Onset: Today Context: Sudden Onset Timing: Continuous Quality: Pressure Location: Left flank Worsened by: Nothing Relieved by: Nothing Narrative Narrative: Patient presents with left flank pain that began today. Patient states it is over the left lower flank. Patient describes it as a pressure. Patient states it began suddenly this morning when he woke up. Patient states he has been having some nausea and vomiting with the pain. Patient states nothing makes the pain worse and nothing makes it better. Patient denies any dysuria, hematuria, or frequency. Patient denies any diarrhea or constipation. [facility] Medical History Ambulates with cane Anemia Back pain Carpal tunnel syndrome of right wrist Chronic pain Chronic pain disorder Complete edentulism, class III Diabetes Dietary restriction Difficulty swallowing Failed total left knee replacement Fatty liver Former smoker Gastric reflux GERD (gastroesophageal reflux disease) High cholesterol History of edema History of hiatal hernia History of pain when walking History of stress test Injury of back Injury of head and neck Kidney stones Leg cramps Marijuana use Medical management NHL (non-Hodgkin's lymphoma) Osteoarthritis Overweight (BMI 25.0-29.9) pain pump trial Shortness of breath on exertion Home Medications atorvastatin 10 mg PO DAILY 08/31/16 [History Last Taken 10/25/16 06:00] dexlansoprazole 60 mg PO DAILY 08/31/16 [History Last Taken 09/30/21 05:30] tizanidine 4 mg PO BID PRN 08/31/16 [History Last Taken Unknown] naproxen sodium 220 mg tablet 220 mg PO BID PRN 09/04/18 [History Last Taken Unknown] biotin 10 mg tablet 10 mg PO DAILY 04/15/21 [History Last Taken Unknown] empagliflozin 25 mg tablet 25 mg PO DAILY 04/15/21 [History Last Taken Unknown] famotidine 40 mg tablet 40 mg PO DAILY 04/15/21 [History Last Taken 09/30/21 05:30] metformin 500 mg tablet 500 mg PO DAILY 04/15/21 [History Last Taken Unknown] morphine 250 mg/25 mL in 0.9 % sodium chloride [facility] syringe 10 mg IJ CONT 04/15/21 [History Last Taken Unknown] pregabalin 100 mg capsule 100 mg PO TID 04/15/21 [History Last Taken 09/30/21 05:30] glimepiride 1 mg tablet 4 mg PO DAILY tab 09/14/21 [History Last Taken Unknown] hydrocodone-acetaminophen 1 tab PO Q6H PRN 2 Days #5 tab 09/30/21 [Rx Last Taken Unknown] diclofenac sodium [Voltaren] 1 ea TOPICAL TID PRN PRN 10/02/21 [History Last Taken Unknown] Allergy/AdvReac Type Severity Reaction Status Date / Time No Known Allergies Allergy Verified 10/02/21 08:06 Family History Mother Cancer Father Diabetes Heart disease CVA (cerebral vascular accident) Surgical History History of esophagogastroduodenoscopy (EGD) History of open reduction and internal fixation (ORIF) procedure History of surgical biopsy Hx of arthroscopy of knee s/p pain pump Status post left foot surgery Total knee replacement status Social History Smoking Status: Former smoker Tobacco: How many years used: 20 Electronic Cigarette Use: not used how long ago did patient quit smoking: about 15 years ago alcohol intake: never substance use type: marijuana and other details: Uses edibles or CBC occationally for pain ROS ROS ED Constitutional Constitutional ED: Denies chills or fever(s) Eyes Eyes: Denies blurry vision or change in vision ENT ENT ED: Denies rhinorrhea or sore throat Cardiovascular Cardiovascular: Denies chest pain or palpitations Respiratory/Chest Respiratory/Chest: Denies cough or dyspnea Gastrointestinal Gastrointestinal: Reports abdominal pain, nausea and vomiting Genitourinary Genitourinary ED: Denies dysuria, hematuria or urinary frequency Musculoskeletal Musculoskeletal: Reports back pain; Denies neck pain Integumentary Denies abscess or rash Neurologic Neurologic: Denies headache(s) or weakness Allergic/Immunologic Allergic/Immunologic ED: Denies mouth swelling or urticaria EXAM Physical Exam Const Vital Signs: 10/02/21 08:03 10/02/21 08:05 10/02/21 09:46 Temperature 98.7 F 98.7 F Temperature Source Oral Oral Pulse Rate 86 86 84 Respiratory Rate 16 16 16 Blood Pressure 148/83 H 148/83 H 133/74 H Blood Pressure Mean 104 104 93 Pulse Ox 95 95 92 Oxygen Delivery Method Room Air Room Air Room Air Positive well nourished and well developed General Appearance ED: well developed and NAD HEENT Reports moist mucous membranes Neck supple and no JVD Resp normal respiratory effort and clear to auscultation bilaterally Cardio regular rate and regular rhythm GI normal to inspection, nondistended, normoactive bowel sounds and non-tender Palpation: soft Back/Spine General Back: CVA tenderness left Neuro oriented x3, CN's II-XII intact bilaterally and no sensory deficits noted Sensorium / Orientation: alert Motor Exam: strength 5/5 throughout Psych mental status grossly normal MDM MDM MDM Narrative Medical decision making narrative: Patient was given IV fluids, morphine, and Zofran. CBC shows a mild leukocytosis of 16.4. This is possibly due to his recent surgery. Comprehensive metabolic profile was essentially within normal limits. Urinalysis does not show any evidence of urinary tract infection. CT scan of the abdomen and pelvis was obtained. There is no acute intra-abdominal abnormality. There is some fatty infiltration of the liver. This was interpreted by the radiologist and reviewed by myself. Patient is feeling better on reevaluation. Patient was advised of his findings. Patient was instructed to follow-up with his primary care physician and pain management physician as scheduled. Patient understood and was agreeable with the plan. All questions were answered. Lab Data Attestation: I reviewed the patient's lab results. Labs: Laboratory Results - last 24 hr 10/02/21 10/02/21 10/02/21 08:15 08:15 10:04 WBC 16.4 H RBC 5.10 Hgb 16.5 Hct 47.3 MCV 92.7 MCH 32.4 H MCHC 34.9 RDW Std Deviation 42.9 RDW Coeff of Romi 12.5 Plt Count 259 MPV 11.0 Immature Gran % (Auto) 0.600 Neut % (Auto) 87.4 H Lymph % (Auto) 5.4 L Garza % (Auto) 5.4 Eos % (Auto) 0.9 Baso % (Auto) 0.3 Absolute Neuts (auto) 14.4 H Absolute Lymphs (auto) 0.89 Nucleated RBC % 0 Sodium 140 Potassium 3.8 Chloride 106 Carbon Dioxide 28.0 Anion Gap 6 BUN 13 Creatinine 0.83 Estim Creat Clear Calc 74.92 Est GFR (MDRD) Af Amer 122 Est GFR (MDRD) Non-Af 101 BUN/Creatinine Ratio 15.7 Glucose 236 H Calcium 9.1 Total Bilirubin 0.50 AST 38 H ALT 97 H Alkaline Phosphatase 145 H Total Protein 7.6 Albumin 3.9 Globulin 3.7 Albumin/Globulin Ratio 1.1 Urine Color Yellow Urine Clarity Clear Urine pH 6.5 Ur Specific [place] 1.015 Urine Protein 15 H Urine Glucose (UA) 1000 H Urine Ketones 50 H Urine Occult Blood Negative Urine Nitrite Negative Urine Bilirubin Negative Urine Urobilinogen Normal Ur Leukocyte Esterase Negative Urine RBC 0 SEEN Urine WBC 0 SEEN Ur Squamous Epith Cells 0 SEEN Urine Bacteria 0 SEEN Urine Mucus 0 SEEN Radiography Diagnostic Testing: Clinical Impression(s) from Imaging Studies Abdomen/Pelvis CT 10/02/21 08:40 IMPRESSION: 1. No evidence of renal, ureteral or urinary bladder abnormality. 2. No evidence of acute intra-abdominal process. 3. Fatty infiltration of liver without mass. 4. Left side pain pump with catheter extending into the lower thoracic spine. Electronically Signed: Mychal Morales DO at 9:24 EST Reading Location ID and State: [address] [place] [address] Tel [phone], Service support , Discharge Plan Triage Chief Complaint: Flank Pain ED Provider: Gerardo Monroe Dx/Rx/DC Orders Clinical Impression: Left flank pain Instructions: ED Flank Pain, Uncertain Cause Prescriptions: No Action naproxen sodium [Aleve] 220 mg tablet 220 mg PO BID PRN (Reason: Pain) RF: 0 pregabalin 100 mg capsule 100 mg PO TID RF: 0 metformin 500 mg tablet 500 mg PO DAILY RF: 0 Jardiance 25 mg tablet 25 mg PO DAILY RF: 0 famotidine 40 mg tablet 40 mg PO DAILY RF: 0 biotin 10 mg tablet 10 mg PO DAILY RF: 0 glimepiride 1 mg tablet 4 mg PO DAILY RF: 0 tizanidine 2 MG tablet 4 mg PO BID PRN (Reason: Pain) RF: 0 atorvastatin 10 MG tablet 10 mg PO DAILY RF: 0 dexlansoprazole 60 MG capsule,biphase delayed releas 60 mg PO DAILY RF: 0 morphine in 0.9 % sodium chlor 250 mg/25 mL pt controlled analgesia syring 10 mg IJ CONT RF: 0 hydrocodone-acetaminophen 5-325 mg tablet 1 tab PO Q6H PRN (Reason: pain) 2 Days Qty: 5 RF: 0 diclofenac sodium [Voltaren] 1 % Gel 1 ea TOPICAL TID PRN PRN (Reason: Pain) RF: 0 Primary Care Provider: Tereso Pereira Referrals: Tereso Pereira MD [Primary Care Provider] - 5-7 Days Disposition Disposition: Home, Self Care
--- NOTE | 2021-10-02 08:40 | CT_ITS ---
STUDY: CT ABDOMEN AND PELVIS WITHOUT CONTRAST REASON FOR EXAM: Male, 56 years old. Left flank pain. RADIATION DOSAGE (If Supplied By Facility): CTDIvol = ( 15.88 ) mGy, DLP = ( 741.70 ) mGycm TECHNIQUE: Transaxial images were obtained from the dome of the diaphragm to the symphysis pubis without oral contrast, and without intravenous contrast. Sagittal and coronal images were reconstructed. Individualized dose optimization techniques were used for this CT. COMPARISON: 02/05/2013. FINDINGS: The visualized lung bases are unremarkable. The visualized portions of the heart are within normal limits. Diffuse fatty infiltration liver without focal mass. Normal gallbladder and extrahepatic biliary system. Normal spleen. Normal pancreas. Normal bilateral adrenal glands. Normal right kidney. Normal left kidney. Normal ureters. Small hiatal hernia. The stomach is otherwise unremarkable. Normal small intestine. Normal colon. There is non-visualization of the appendix. There is diffuse atherosclerotic calcification of the abdominal aorta, without a demonstrated aneurysm. Normal inferior vena cava. Normal retroperitoneum. Normal urinary bladder. Normal prostate. No pelvic lymphadenopathy. No free air or free fluid is seen within the peritoneal cavity. Normal abdominal wall. There is a paintball in the soft tissues of the left flank. The catheter, is seen extending to the lower back where it enters the spinal canal at the level of L3-4 and extends upward to the level of T12. There are diffuse degenerative changes of the visualized lumbar spine. CT/Abdomen/Pelvis without Cont IMPRESSION: 1. No evidence of renal, ureteral or urinary bladder abnormality. 2. No evidence of acute intra-abdominal process. 3. Fatty infiltration of liver without mass. 4. Left side pain pump with catheter extending into the lower thoracic spine. Electronically Signed: Mychal Morales DO at 9:24 EST Reading Location ID and State: [address] [place] [address] Tel [phone], Service support ,
[2021-10-02] MEDS: Morphine 4 MG/ML Syringe IV (08:55)
[2021-10-02] MEDS: 0.9% Normal Saline 1,000 ML 1000 ML IV (08:55)
[2021-10-02] MEDS: Ondansetron 4 MG/2 ML Vial IV (08:55)
[2021-10-02 09:18] LABS: Absolute Lymphocyte Count 0.89 X10^3/uL (0.83-4.51); Absolute Neutrophil Count 14.4 X10^3/uL (2.0-7.7); Basophil# 0.05 X10^3/uL; Basophil% 0.3 % (0-1); Eosinophil# 0.14 X10^3/uL; Eosinophils% 0.9 % (0-5); Hematocrit 47.3 % (40-54); Hemoglobin 16.5 g/dL (13.0-16.5); Lymphocyte # 0.89 X10^3/ul (0.83-4.51); Lymphocyte % 5.4 % (19-41); Mean Corp Hgb Conc 34.9 g/dL (32-36); Mean Corpuscular Hgb 32.4 pg (27.0-32.0); Mean Corpuscular Volume 92.7 fL (80-94); Monocyte# 0.88 X10^3/uL; Monocyte% 5.4 % (0-10); NRBC Flagged by Analyzer 0 % (0-5); Neutrophil # 14.37 X10^3/uL (2.7-7.7); Neutrophil % 87.4 % (47-70); Platelet Count 259 K/mm3 (150-450); RBC Distribution Width CV 12.5 % (11.6-14.6); RBC Distribution Width SD 42.9 fl (35.1-43.9); White Blood Count 16.4 K/mm3 (4.4-11.0)
[2021-10-02 09:23] LABS: ALB/GLOB Ratio 1.1 RATIO (0.9-2.4); AST(SGOT) 38 U/L (15-37); Alanine Aminotransfer ALT/SGPT 97 U/L (16-61); Albumin, Serum 3.9 g/dL (3.2-5.0); Alkaline Phosphatase 145 U/L (45-117); Anion Gap 6 (5-15); BUN 13 mg/dL (7-18); BUN/Creat Ratio 15.7 RATIO (10-20); Calcium,Total 9.1 mg/dL (8.5-10.1); Chloride 106 mmol/L (98-107); Creatinine, Serum 0.83 mg/dL (0.70-1.30); EST Glomerular Filtration Rate 101 mL/min (>60); Est Glom Filt Rate - Afr Amer 122 mL/min (>60); Estimated Creatinine Clearance 74.92 ml/min; Globulin 3.7 g/dL (2.2-4.2); Glucose 236 mg/dL (74-106); Potassium 3.8 mmol/L (3.5-5.1); Protein, Total 7.6 g/dL (6.4-8.2); Sodium Level 140 mmol/L (136-145)
[2021-10-02 09:46] VITALS: BP 133/74; PULSE 84; RESP 16; O2SAT 92
[2021-10-02 10:11] LABS: Bacteria 0 SEEN /hpf (None Seen); Mucous, Urine 0 SEEN /hpf (<or=2+); Red Blood Cells-Urine 0 SEEN /hpf (0-5); Squamous Epithelial Cells - UA 0 SEEN /hpf (0-5); White Blood Cells 0 SEEN /hpf (0-5)
[2021-10-02 10:20] LABS: Color, Urine Yellow (Yellow); Glucose, Dipstick 1000 mg/dl (Normal); Ketone-Dipstick 50 mg/dl (Negative); Leukocyte Esterase-Dipstick Negative /ul (Negative); Nitrite-Dipstick Negative (Negative); Occult Blood-Urine Negative /ul (Negative); Protein-Dipstick 15 mg/dl (Negative); Specific Gravity, Urine 1.015 (1.002-1.030); Urine Bilirubin Dipstick Negative (Negative); Urine Clarity Clear (Clear); Urine Urobilinogen Normal (Normal); Urine pH 6.5 (5.0 - 8.0)
== END 2021-10-02 10:58 | disposition home or self-care (01) ==
PROVIDERS: Emergency Provider Emergency Medicine; PCP Family Medicine; Visit Provider Emergency Medicine
DX: R10.9 Unspecified abdominal pain (principal); R11.2 Nausea with vomiting, unspecified; E11.9 Type 2 diabetes mellitus without complications; D72.829 Elevated white blood cell count, unspecified; K76.0 Fatty (change of) liver, not elsewhere classified; E78.00 Pure hypercholesterolemia, unspecified; M19.90 Unspecified osteoarthritis, unspecified site; K21.9 Gastro-esophageal reflux disease without esophagitis; G89.29 Other chronic pain; Z79.1 Long term (current) use of non-steroidal anti-inflammatories (NSAID); Z79.84 Long term (current) use of oral hypoglycemic drugs; Z79.899 Other long term (current) drug therapy; Z87.891 Personal history of nicotine dependence
CPT/HCPCS: 74176; 80053; 81001; 85025; 96361; 96374; 96375; 99283; J7030; A4216; J2405

== ENCOUNTER → 2022-03-14 | Outpatient (CLI) | payer MEDICARE, MEDICAID, SELFPAY ==
[2022-03-14 12:34] LABS: Anion Gap 7 (5-15); BUN 10 mg/dL (7-18); BUN/Creat Ratio 13.2 RATIO (10-20); Calcium,Total 8.7 mg/dL (8.5-10.1); Chloride 106 mmol/L (98-107); Cholesterol 159 mg/dL (200); Creatinine, Serum 0.76 mg/dL (0.70-1.30); EST Glomerular Filtration Rate 112 mL/min (>60); Est Glom Filt Rate - Afr Amer 136 mL/min (>60); Glucose 101 mg/dL (74-106); High Density Lipoprotein 60 mg/dL; Potassium 3.8 mmol/L (3.5-5.1); Sodium Level 141 mmol/L (136-145); Triglycerides 100 mg/dL; Very Low Density Lipoprotein 20 mg/dL (5-40)
[2022-03-14 12:36] LABS: Microalbumin:Creatinine Ratio 43.7 mg/g CRE (<30 mg/g CRE)
== END | disposition home or self-care (01) ==
LOC: MTLAB 10:40
PROVIDERS: PCP Family Medicine; Referring Provider Family Medicine; Visit Provider Family Medicine
DX: E11.9 Type 2 diabetes mellitus without complications (principal)
CPT/HCPCS: 36415; 80048; 80061; 82043; 82570

== ENCOUNTER → 2022-06-08 | Outpatient (CLI) | payer MEDICARE, MEDICAID, SELFPAY ==
--- NOTE | 2022-06-08 11:16 | RAD_ITS ---
STUDY: X-RAY - PELVIS AND BILATERAL HIPS REASON FOR EXAM: Male, 57 years old. Pain. TECHNIQUE: AP view of the pelvis.? 2 views of the right hip, and 2 views of the left hip were obtained. COMPARISON: January 10, 2017. FINDINGS: There is a non-specific bowel gas pattern. Normal visualized soft tissue structures. Mild osteopenia. Normal bilateral iliac wings, sacroiliac joints and visualized sacrum. Normal bilateral superior and inferior pubic rami. Normal pubic symphysis. Normal bilateral ischial tuberosities. Normal visualized right femoral head. Normal right acetabulum. Normal right hip joint. Normal visualized left femoral head. Normal left acetabulum. Normal left hip joint. Stable deformity of the proximal left femur. RAD/Hips B/L min 2 views w/ Pelvis IMPRESSION: Osteopenia with otherwise stable pelvis and hips. No acute abnormality, evidence of erosive changes or fusion. Electronically Signed: Donny Lerner, at 15:38 EST ,
== END | disposition home or self-care (01) ==
LOC: MTRAD 11:09
PROVIDERS: PCP Family Medicine; Referring Provider Family Medicine; Visit Provider Family Medicine
DX: M25.559 Pain in unspecified hip (principal)
CPT/HCPCS: 73521

== ENCOUNTER → 2022-12-07 | Outpatient (CLI) | payer MEDICARE, MEDICAID, SELFPAY ==
[2022-12-07 12:39] LABS: Anion Gap 7 (5-15); BUN 16 mg/dL (7-18); BUN/Creat Ratio 25.4 RATIO (10-20); Calcium,Total 9.2 mg/dL (8.5-10.1); Chloride 109 mmol/L (98-107); Cholesterol 137 mg/dL (200); Creatinine, Serum 0.63 mg/dL (0.70-1.30); EST Glomerular Filtration Rate 138 mL/min (>60); Est Glom Filt Rate - Afr Amer 168 mL/min (>60); Glucose 82 mg/dL (74-106); High Density Lipoprotein 70 mg/dL; Sodium Level 143 mmol/L (136-145); Triglycerides 60 mg/dL; Very Low Density Lipoprotein 12 mg/dL (5-40)
== END | disposition home or self-care (01) ==
LOC: MTLAB 10:10
PROVIDERS: PCP Family Medicine; Referring Provider Family Medicine; Visit Provider Family Medicine
DX: E11.9 Type 2 diabetes mellitus without complications (principal)
CPT/HCPCS: 36415; 80048; 80061

== ENCOUNTER → 2023-09-07 | Outpatient (CLI) | payer MEDICARE, MEDICAID, SELFPAY ==
--- OUTSIDE RECORDS SUMMARY | 2023-09-07 11:33 | XMS RPT_ITS | CCD ---
Author Name Unknown Address [address] [place] [address] Organization [facility] Results Test Name Value Interpretation Reference Range Facil ity Progress note 08-09-2021 Note Date & Type Note Facility 08-09-2021 Note HNO ID: [id number] Author: Alec Pringle MD Service: ? Author Type: Physician Type: Progress Notes Filed: 08/09/2021 3:18 PM Note Text: Plastic Surgery Note CC: L hand burn HPI: Sanya is a 56 year old male presenting with sainz to his dorsal LSF and LRF that occurred on 07/29/2021 while he was woodworking. He reports losing his balance and falling onto a hot oscillating blade. Patient proceeded to his PCP who is Dr. Peterson who placed a consult to us for evaluation. Rating pain 4/10, he has been taking oxycodone for the pain. He reports initial n/t that has since improved. Has also been putting triple antibiotic ointment 3 times daily and keeping the areas covered. 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 No results found for: HBA1C Last 10 Encounter BP Readings: Date: BP: 11/14/2011 125/79 11/10/2010 111/77 12/09/2009 129/86 12/17/2008 106/71 11/19/2008 139/92 11/03/2008 106/68 CBC Latest Ref Rng AND Units 12/09/2009 11/10/2010 11/14/2011 HEMOGLOBIN, MICHELLE 13.0 - 17.0 g/dL 15.1 14.7 15.5 MCV, MICHELLE 80.0 - 100.0 fL 97.1(H) 94.0 94.2 MCH, MICHELLE 26.0 - 34.0 pg 31.9(H) 32.6 33.0 MCHC, MICHELLE 30.5 - 36.0 g/dL 32.8(L) 34.7 35.1 RDW, MICHELLE 11.5 - 15.0 % 12.4 12.8 12.9 MPV, MICHELLE 9.0 - 12.7 fL - 9.2 9.7 NEUT%, MICHELLE 42 - 75 % 51.1 47 64 MONO%, MICHELLE 2 - 9 % 7.3 5 4 EOS%, MICHELLE 0 - 6 % 1.8 1 3 BASO%, MICHELLE 0.0 - 2.0 % 0.6 - - ABS NEUT, MICHELLE 2 - 8 k/uL 4.3 5.28 6.73 ABS LYMP, MICHELLE 1 - 6 k/uL 3.2 5.06 2.48 ABS MONO, MICHELLE 0 - 1 k/uL 0.6 0.55 0.40 ABS EOS, MICHELLE 0 - 1 k/uL 0.1 0.11 0.30 ABS BASO, MICHELLE 0.0 - 0.1 k/uL 0.0 - - CMP Latest Ref Rng AND Units 12/17/2008 12/09/2009 11/14/2011 SODIUM, MICHELLE 135 - 146 mmol/L 141 140 138 SODIUM, MICHELLE 135 - 146 mmol/L 141 140 138 POTASSIUM, MICHELLE 3.5 - 5.0 mmol/L 3.9 3.9 3.5 CHLORIDE, MICHELLE 98 - 110 mmol/L 104 102 101 CO2, MICHELLE 23.0 - 32.0 mmol/L 27.3 31.9 27.5 GLUCOSE, MICHELLE 65 - 100 mg/dL 94 112(H) 152(H) BUN, MICHELLE 10 - 25 mg/dL 8 8 6(L) CREATININE, MICHELLE 0.7 - 1.4 mg/dL 0.8 0.8 0.7 TOTAL PROTEIN, MICHELLE 6.0 - 8.4 g/dL 7.9 7.8 7.3 ALBUMIN, MICHELLE 3.5 - 5.0 g/dL 3.9 3.8 4.3 CALCIUM, MICHELLE 8.5 - 10.5 mg/dL 8.9 9.0 9.0 AST, MICHELLE 7 - 40 U/L 38(H) 36 51(H) ALT, MICHELLE 5 - 50 U/L 82(H) 70(H) 55(H) YES NO Smoker [] [x] Cigarettes/ day.quit 2005... ? Diabetes [x] [] []Type 1? [x]Type 2 ?Last A1c:..7.8 (patient unsure)... Systemic inflammatory diseases [] [x] []RA []Gout []Other... Hypertension [] [x] Meds:....... Heart disease or pacemaker [] [x] ............ Family history blood clots [] [x] Personal history blood clots [] [x] Anticoagulation (aspirin, coumadin, xarelto,etc) [] [x] What........... Reason:........... Immunosuppressants (steroid, biologic meds infusion, etc) [] [x] What........... Reason:........... Pt AGAINST blood transfusion? [] [x] Objective: There were no vitals taken for this visit. PAST MEDICAL HISTORY Diagnosis Date - Sanders's esophagus - Diaphragmatic hernia without mention of obstruction or gangrene - Esophagitis, unspecified - Heartburn - PMH - PAST MEDICAL HISTORY OF non hodgkins lymphoma PAST SURGICAL HISTORY Procedure Laterality Date - EGD W/O OR W/BRUSH/WASH 07/11/07 EGD - EGD W/O OR W/BRUSH/WASH 10/19/05 EGD - EGD W/O OR W/BRUSH/WASH 2003 EGD - EGD W/O OR W/BRUSH/WASH 2000 or 2001 EGD - EGD W/O OR W/BRUSH/WASH 12/23/08 procedure started and had to be ended and rescheduled - EGD W/O OR W/BRUSH/WASH 01/27/2009 EGD - PAST SURGICAL HISTORY OF 1999 tumor removed from right side of neck - PAST SURGICAL HISTORY OF 2000 or 2001 tumor from right groin area - PAST SURGICAL HISTORY OF left femur surgery - PAST SURGICAL HISTORY OF left knee arthroscopic surgery x3 Current Outpatient Medications Medication Sig Dispense Refill - Dexlansoprazole (KAPIDEX) 60 mg ORAL CpDM Take 1 capsule by mouth once daily. - CYCLOBENZAPRINE HCL (FLEXERIL ORAL) Take 1 tablet by mouth as needed. - LORATADINE (CLARITIN ORAL) Take 1 tablet by mouth as needed. - oxycodone hcl(OXYCONTIN 80 MG 12 HR TAB) 1 1/2 tabs three times daily as needed 0 - OXYCODONE 15 MG TAB hcl takes 1 to 2 tabs three times per day as needed 0 No current facility-administered medications for this visit. ALLERGIES No Known Allergies ROS: All negative except for: GENERAL: []weight loss []malaise []fevers HEENT: []frequent or significant headaches []changes in hearing []change in vision []nose bleeds []other nasal problems NECK: []lumps []goiter []pain and significant neck swelling RESPIRATORY: []cough []hemoptysis []wheezing []COPD []dyspnea []shortness of breath CARDIOVASCULAR: []chest pain []leg swelling []hypertension []CHF []palpitations GI: []nausea []vomiting []diarrhea MUSCULOSKELETAL: see HPI SKIN: [] skin lesions []rash []itching PSYCH: (more content not included)... [facility] Summary Purpose Family History No Family History Records Found Advance Directives No Advanced Directives Records Found Additional Source Comments (unrecognized sect ion and content) No Status Records Found INFORMATION SOURCE (unrecogn ized section and content) FOR RECORDS PERTAINING TO PATIENTS WHO ARE OR HAVE BEEN ENROLLED IN A CHEMICAL DEPENDENCY/SUBSTANCEABUSE PROGRAM, SOME INFORMATION MAY BE OMITTED. This clinical summary was aggregated from multiple sources. Caution should be exercised in using it in the provision of clinical care. This summary normalizes information from multiple sources, and as a consequence, information in this document may materially change the coding, format and clinical context of patient data. In addition, data may be omitted in some cases. CLINICAL DECISIONS SHOULD BE BASED ON THE PRIMARY CLINICAL RECORDS. [facility] [employer] [facility]. provides no warranty or guarantee of the accuracy or completeness of information in this document.
[2023-09-07 12:44] LABS: AST(SGOT) 80 U/L (15-37); Alanine Aminotransfer ALT/SGPT 178 U/L (16-61); Alkaline Phosphatase 156 U/L (45-117); Anion Gap 4 (5-15); BUN 10 mg/dL (7-18); Calcium,Total 9.2 mg/dL (8.5-10.1); Chloride 104 mmol/L (98-107); Cholesterol 164 mg/dL (200); Creatinine, Serum 0.83 mg/dL (0.70-1.30); EST Glomerular Filtration Rate 100 mL/min (>60); Est Glom Filt Rate - Afr Amer 121 mL/min (>60); Glucose 199 mg/dL (74-106); High Density Lipoprotein 51 mg/dL; Potassium 3.6 mmol/L (3.5-5.1); Sodium Level 137 mmol/L (136-145); Triglycerides 167 mg/dL; Very Low Density Lipoprotein 33 mg/dL (5-40)
[2023-09-08 10:06] LABS: Hemoglobin A1c 8.1 % (3.8-5.6)
== END | disposition home or self-care (01) ==
PROVIDERS: PCP Family Medicine; Referring Provider Family Medicine; Visit Provider Family Medicine
DX: E78.5 Hyperlipidemia, unspecified (principal); E11.9 Type 2 diabetes mellitus without complications
CPT/HCPCS: 36415; 80053; 80061; 83036

== ENCOUNTER → 2023-09-11 | Outpatient (CLI) | payer MEDICARE, MEDICAID, SELFPAY ==
[2023-09-11 15:38] LABS: Absolute Lymphocyte Count 3.28 X10^3/uL (0.83-4.51); Absolute Neutrophil Count 3.7 X10^3/uL (2.0-7.7); Basophil# 0.11 X10^3/uL; Basophil% 1.3 % (0-1); Eosinophil# 0.32 X10^3/uL; Eosinophils% 3.9 % (0-5); Hematocrit 45.7 % (40-54); Hemoglobin 15.3 g/dL (13.0-16.5); Lymphocyte # 3.28 X10^3/ul (0.83-4.51); Lymphocyte % 40.2 % (19-41); Mean Corp Hgb Conc 33.5 g/dL (32-36); Mean Corpuscular Hgb 31.2 pg (27.0-32.0); Mean Corpuscular Volume 93.1 fL (80-94); Monocyte# 0.62 X10^3/uL; Monocyte% 7.6 % (0-10); NRBC Flagged by Analyzer 0 % (0-5); Neutrophil # 3.74 X10^3/uL (2.7-7.7); Platelet Count 296 K/mm3 (150-450); RBC Distribution Width CV 12.7 % (11.6-14.6); RBC Distribution Width SD 43.3 fl (35.1-43.9); Red Blood Count 4.91 M/mm3 (4.6-6.2); White Blood Count 8.2 K/mm3 (4.4-11.0)
== END | disposition home or self-care (01) ==
LOC: MTLAB 13:57
PROVIDERS: PCP Family Medicine; Referring Provider Family Medicine; Visit Provider Family Medicine
DX: C82.90 Follicular lymphoma, unspecified, unspecified site (principal)
CPT/HCPCS: 36415; 85025

== ENCOUNTER 2023-10-20 11:15 | Day surgery (SDC) | payer MEDICARE, MEDICAID, SELFPAY ==
--- NOTE | 2023-10-20 | FORE_PTH ---
PATIENT: KARINA PIMENTEL [place] [facility] [place][id number] AGE/SX: 58/M ROOM: RE10/20/[address]: Dr. Mariusz Harris MD : 1965 BED: DIS: 10/20/2023 SPEC #: [id number] RECD: 10/20/23 16:39 STATUS: RADHA RENessa #: [id number] ZORAIDA: 10/20/23 00:[address]: Mariusz Harris DEPT: SURGICAL PATHOLOGY RECD BY: Amilcar Arteaga ENTERED: 10/23/23 08:57 SP TYPE: FOREIGN B KHALIDA DR: Dr. Tereso Pereira MD Tissues: FOREIGN BODY Procedures: Surgery Specimen Level I HEADER OPERATION: Pain pump replacement PRE-OP DIAGNOSIS: Pain pump replacement, battery change and refill TISSUE SUBMITTED: Pain pump GROSS DIAGNOSIS Pain pump (gross only) ANGELLA/ 10/23/23 MICROSCOPIC DESCRIPTION Slides are reviewed. GROSS DESCRIPTION Received in fixative is one container labeled with the patient's name and designated Pain pump. The specimen consists of a metallic pump measuring 8.5 x 7.2 x 1.8cm. Inscription on the pump is as follows: electronic Medtronic SynchroMed II programable pump and number [id number]. [id number] [email or web address], [facility]. The specimen is for gross identification only. Pee 10/23/2023 CPT: 76568
[2023-10-20 11:52] VITALS: BP 122/97; PULSE 97; RESP 16; TEMP 36.4; O2SAT 95; BMI 31.6
[2023-10-20] MEDS: Lactated Ringers 1,000 ML 15 ML IV (12:01)
[2023-10-20 12:25] LABS: Bedside Glucose 125 mg/dL (74-106)
[2023-10-20] MEDS: [UNRECOGNIZED DRUG - MIXTURE] 20 MG IV (14:45)
[2023-10-20] MEDS: Lidocaine 1%/Epi 1:200 (30ml) 30 ML AMPUL (14:47)
[2023-10-20 15:15] VITALS: BP 115/68; BP 122/97; PULSE 67; RESP 16; TEMP 36.3; O2SAT 96
[2023-10-20 15:20] VITALS: BP 102/80; BP 122/97; PULSE 65; RESP 16; O2SAT 95
[2023-10-20 15:25] VITALS: BP 100/63; BP 122/97; PULSE 69; RESP 16; TEMP 36.1; O2SAT 97
[2023-10-20 15:38] VITALS: BP 122/97
== END 2023-10-20 16:04 | disposition home or self-care (01) ==
LOC: SDC 11:18 → AC 11:22
PROVIDERS: PCP Family Medicine; Referring Provider Anesthesiology Pain Medicine; Visit Provider Anesthesiology Pain Medicine
PROC: (CPT 62362; principal; 2023-10-20 13:25)
DX: Z45.1 Encounter for adjustment and management of infusion pump (principal); E11.9 Type 2 diabetes mellitus without complications; M96.1 Postlaminectomy syndrome, not elsewhere classified; G89.4 Chronic pain syndrome; E78.00 Pure hypercholesterolemia, unspecified; Z87.891 Personal history of nicotine dependence
CPT/HCPCS: 62362; 00300; 82962; 88300; J7120; J2405; J3490

== ENCOUNTER → 2024-02-15 | Outpatient (CLI) | payer MEDICARE, MEDICAID, SELFPAY ==
[2024-02-15 15:58] LABS: ALB/GLOB Ratio 1.2 RATIO (0.9-2.4); AST(SGOT) 48 U/L (15-37); Alanine Aminotransfer ALT/SGPT 102 U/L (16-61); Albumin, Serum 4.3 g/dL (3.2-5.0); Alkaline Phosphatase 129 U/L (45-117); Anion Gap 9 (5-15); BUN 15 mg/dL (7-18); Calcium,Total 9.7 mg/dL (8.5-10.1); Chloride 104 mmol/L (98-107); Cholesterol 169 mg/dL (200); Creatinine, Serum 0.75 mg/dL (0.70-1.30); EST Glomerular Filtration Rate 113 mL/min (>60); Est Glom Filt Rate - Afr Amer 136 mL/min (>60); Globulin 3.5 g/dL (2.2-4.2); Glucose 99 mg/dL (74-106); High Density Lipoprotein 78 mg/dL; Potassium 4.4 mmol/L (3.5-5.1); Protein, Total 7.8 g/dL (6.4-8.2); Sodium Level 139 mmol/L (136-145); Triglycerides 123 mg/dL; Very Low Density Lipoprotein 25 mg/dL (5-40)
== END | disposition home or self-care (01) ==
LOC: MFPLAB 12:24
PROVIDERS: PCP Family Medicine; Visit Provider Family Medicine
DX: E11.9 Type 2 diabetes mellitus without complications (principal)
CPT/HCPCS: 36415; 80053; 80061

== ENCOUNTER → 2024-08-07 | Outpatient (CLI) | payer MEDICARE, MEDICAID, SELFPAY ==
[2024-08-07 15:44] LABS: ALB/GLOB Ratio 1.1 RATIO (0.9-2.4); AST(SGOT) 89 U/L (15-37); Alanine Aminotransfer ALT/SGPT 176 U/L (16-61); Alkaline Phosphatase 131 U/L (45-117); Anion Gap 9 (5-15); BUN 14 mg/dL (7-18); BUN/Creat Ratio 17.6 RATIO (10-20); Calcium,Total 9.1 mg/dL (8.5-10.1); Chloride 103 mmol/L (98-107); Cholesterol 161 mg/dL (200); EST Glomerular Filtration Rate 105 mL/min (>60); Est Glom Filt Rate - Afr Amer 127 mL/min (>60); Globulin 3.8 g/dL (2.2-4.2); Glucose 199 mg/dL (74-106); High Density Lipoprotein 59 mg/dL; Protein, Total 7.8 g/dL (6.4-8.2); Sodium Level 136 mmol/L (136-145); Triglycerides 225 mg/dL; Very Low Density Lipoprotein 45 mg/dL (5-40)
== END | disposition home or self-care (01) ==
LOC: MFPLAB 11:35
PROVIDERS: PCP Family Medicine; Referring Provider Family Medicine; Visit Provider Family Medicine
DX: E11.9 Type 2 diabetes mellitus without complications (principal)
CPT/HCPCS: 36415; 80053; 80061

== ENCOUNTER 2024-10-11 12:33 | Outpatient (CLI) | payer MEDICAID, MEDICARE, SELFPAY ==
[2024-10-11 15:03] LABS: Absolute Lymphocyte Count 2.37 X10^3/uL (0.83-4.51); Absolute Neutrophil Count 4.4 X10^3/uL (2.0-7.7); Basophil# 0.09 X10^3/uL; Basophil% 1.2 % (0-1); Eosinophil# 0.15 X10^3/uL; Eosinophils% 1.9 % (0-5); Hematocrit 45.3 % (40-54); Hemoglobin 15.2 g/dL (13.0-16.5); Lymphocyte # 2.37 X10^3/ul (0.83-4.51); Lymphocyte % 30.6 % (19-41); Mean Corp Hgb Conc 33.6 g/dL (32-36); Mean Corpuscular Hgb 31.1 pg (27.0-32.0); Mean Corpuscular Volume 92.8 fL (80-94); Mean Platelet Vol. 10.9 fl (6.2-12.0); Monocyte# 0.65 X10^3/uL; Monocyte% 8.4 % (0-10); NRBC Flagged by Analyzer 0 % (0-5); Neutrophil % 56.9 % (47-70); Platelet Count 282 K/mm3 (150-450); RBC Distribution Width CV 12.2 % (11.6-14.6); RBC Distribution Width SD 41.7 fl (35.1-43.9); Red Blood Count 4.88 M/mm3 (4.6-6.2); White Blood Count 7.7 K/mm3 (4.4-11.0)
[2024-10-11 19:02] LABS: ALB/GLOB Ratio 1.5 RATIO (0.9-2.4); AST(SGOT) 158 U/L (<=37); Alanine Aminotransfer ALT/SGPT 254 U/L (<=46); Albumin, Serum 4.5 g/dL (3.4-4.8); Alkaline Phosphatase 124 U/L (40-129); Anion Gap 14 (5-15); BUN 12 mg/dL (4-19); BUN/Creat Ratio 17.3 RATIO (10-20); CRP 4.44 mg/L (0.0-3.0); Calcium,Total 9.7 mg/dL (7.6-11.0); Carbon Dioxide 23.5 mmol/L (21.0-32.0); Chloride 101 mmol/L (98-108); Creatinine, Serum 0.71 mg/dL (0.70-1.20); EST Glomerular Filtration Rate 105 (>60); Globulin 3.1 g/dL (2.2-4.2); Glucose 176 mg/dL (70-99); Protein, Total 7.6 g/dL (5.9-8.4); Sodium Level 139 mmol/L (133-145)
[2024-10-20 09:08] LABS: Beef <0.10 kU/L (Class 0); Chocolate <0.10 kU/L (Class 0); Codfish <0.10 kU/L (Class 0); Corn <0.10 kU/L (Class 0); Egg, Whole <0.10 kU/L (Class 0); Milk (Cow) <0.10 kU/L (Class 0); Mussels <0.10 kU/L (Class 0); Peanut <0.10 kU/L (Class 0); Pork <0.10 kU/L (Class 0); Salmon <0.10 kU/L (Class 0); Shrimp <0.10 kU/L (Class 0); Soybean <0.10 kU/L (Class 0); Tuna <0.10 kU/L (Class 0); Wheat <0.10 kU/L (Class 0)
[2024-10-21 11:07] LABS: ACCA 21 units (0-90); ALCA 5 units (0-60); AMCA 25 units (0-100); Cytoplasmic Ab (C-ANCA) <1:20 titer (Neg:<1:20); Endomysial Antibody IgA Negative (Negative); Immunoglobulin A 272 mg/dL (61-437); Immunoglobulin E 20 IU/mL (6-495); Immunoglobulin G 901 mg/dL (603-1613); Immunoglobulin M 197 mg/dL (20-172); Perinuclear Ab (P-ANCA) <1:20 titer (Neg:<1:20); gASCA 25 units (0-50); t-Transglutaminase IgA 3 U/mL (0-3)
== END 2024-10-11 23:59 | disposition home or self-care (01) ==
LOC: MTLAB 12:35
PROVIDERS: PCP Family Medicine
DX: K58.0 Irritable bowel syndrome with diarrhea (principal); K22.70 Barrett's esophagus without dysplasia
CPT/HCPCS: 36415; 80053; 82784; 82785; 83516; 84443; 85025; 86003; 86005; 86036; 86037; 86140; 86255; 86671

== ENCOUNTER → 2024-10-22 | Outpatient (CLI) | payer MEDICARE, MEDICAID, SELFPAY ==
[2024-10-25 07:07] LABS: Calprotectin, Stool 223 ug/g (0-120)
== END | disposition home or self-care (01) ==
LOC: MTLAB 14:04
PROVIDERS: PCP Family Medicine
DX: K58.0 Irritable bowel syndrome with diarrhea (principal); K22.70 Barrett's esophagus without dysplasia
CPT/HCPCS: 82653; 83993

== ENCOUNTER 2024-10-30 08:47 | Day surgery (SDC) | payer MEDICARE, MEDICAID, SELFPAY ==
[2024-10-30] VITALS (10 sets, daily range): BP systolic 91–158; BP diastolic 51–77; PULSE 62–76; RESP 14–18; TEMP 36.4–36.9; O2SAT 92–100; BMI 32.6
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
[2024-10-30 09:42] LABS: Bedside Glucose 250 mg/dL (74-106)
--- NOTE | 2024-10-30 09:57 | PCM.HP.STD ---
HPI - General General Date of Admission: 10/30/24 Date of Service: 10/30/24 Chief Complaint: reese's esophagus and diarrhea HPI Narrative KARINA PIMENTEL, is a 59 M who presentsKARINA PIMENTEL, is a 59 M who presents to the office today for establishment with [facility] for pre-EGD scheduling. PMHx: DMII, laminectomy, intrathecal pump-last filled 09/2023-due to be filled 10/17/24, LSBE(7cm)-last EGD 09/18(recommended repeat in 2yrs), esophageal cancer, former smoker. He reports heartburn despite pantoprazole and famotidine, frequent nausea. He states that he has difficulty chewing due to having no teeth and therefore has a little bit of difficulty with swallowing; must break large pills in half to take. He notes an increase in flatus and has had lower diffuse abdominal cramping relieved with a BM. States that his stools have changed to loose and occasionally watery daily. He denies vomiting, abdominal bloating, hematochezia, and melena. [facility] Medical History Wears glasses Restless legs Loss of consciousness Difficulty swallowing History of IBS Arthritis Carpal tunnel syndrome of right wrist Complete edentulism, class III Marijuana use Ambulates with cane Anemia Fatty liver Injury of back Back pain Injury of head and neck Difficulty swallowing History of hiatal hernia Dietary restriction Gastric reflux Former smoker Shortness of breath on exertion Leg cramps History of pain when walking History of edema History of stress test GERD (gastroesophageal reflux disease) Kidney stones High cholesterol NHL (non-Hodgkin's lymphoma) Chronic pain disorder pain pump trial Medical management Diabetes Osteoarthritis Chronic pain Overweight (BMI 25.0-29.9) Failed total left knee replacement Home Medications ?Medication ?Instructions ?Recorded ?Last Taken ?Type atorvastatin 10 mg tablet 10 mg PO DAILY 08/31/16 10/29/24 History tizanidine 2 mg tablet 4 mg PO BID PRN Pain 08/31/16 Unknown History naproxen sodium 220 mg tablet 220 mg PO BID PRN Pain 09/04/18 Unknown History (Aleve) empagliflozin 25 mg tablet 25 mg PO DAILY 04/15/21 10/27/24 History (Jardiance) famotidine 40 mg tablet 40 mg PO DAILY 04/15/21 10/30/24 History metformin 500 mg tablet 500 mg PO DAILY 04/15/21 10/27/24 History morphine 250 mg/25 mL in 0.9 % 10 mg CONT 04/15/21 10/30/24 History sodium chloride PLATE WORKER HELPER syringe pregabalin 100 mg capsule 100 mg PO TID 04/15/21 10/30/24 History biotin 10,000 mcg capsule 10,000 mcg PO DAILY 10/19/23 10/29/24 History dulaglutide 3 mg/0.5 mL 3 mg subcut FR DIABETES 10/19/23 09/22/24 History subcutaneous pen injector (Trulicity) glimepiride 4 mg tablet 4 mg PO BID 10/19/23 10/27/24 History loratadine 10 mg capsule (Allergy 10 mg PO QDAY 10/11/24 10/29/24 History Relief (loratadine)) meloxicam 7.5 mg tablet 7.5 mg PO QDAY 10/11/24 10/30/24 History pantoprazole 40 mg tablet,delayed 40 mg PO QDAY 10/11/24 10/30/24 History release Allergy/AdvReac Type Severity Reaction Status Date / Time No Known Allergies Allergy Verified 10/30/24 09:09 Family History Mother Cancer Father Diabetes Heart disease CVA (cerebral vascular accident) Surgical History Hx of bilateral cataract extraction History of carpal tunnel release History of esophagogastroduodenoscopy (EGD) Hx of arthroscopy of knee History of open reduction and internal fixation (ORIF) procedure Status post left foot surgery s/p pain pump History of surgical biopsy Total knee replacement status Social History Smoking Status: Former smoker Tobacco: How many years used: 20 Electronic Cigarette Use: not used how long ago did patient quit smoking: about 15 years ago alcohol intake: never substance use type: marijuana and other details: Uses edibles or CBC occationally for pain ROS Constitutional Constitutional: Denies fatigue, fever(s), poor appetite, weight gain or weight loss Gastrointestinal Gastrointestinal: Denies belching, bloating, change in bowel habits, change in stool character, chewing difficulty, coffee ground emesis, constipation, cramping, diarrhea, dyspepsia, dysphagia, early satiety, excessive flatus, fecal incontinence, heartburn, hematemesis, hematochezia, hemorrhoids, loose stools, melena, nausea, odynophagia, rectal bleeding, tenesmus, vomiting or weight changes Vital Signs Vital Signs Vital Signs: 10/30/24 09:12 10/30/24 09:12 10/30/24 09:19 Temperature 97.7 F L 97.7 F L Temperature Source Temporal Pulse Rate 76 76 Respiratory Rate 18 18 Respiratory Pattern Normal Blood Pressure 158/77 H 158/77 H Blood Pressure Mean 104 Blood Pressure Source Monitor Blood Pressure Position Semi-Fowlers Blood Pressure Location Left Arm Pulse Ox 100 100 Oxygen Delivery Method Room Air Weight Weight: 178 lb 9.191 oz Body Mass Index (BMI) 32.6 Physical Exam Const alert, oriented x3, no apparent distress and healthy appearing General Appearance: cooperative GI normal to inspection, nondistended, normoactive bowel sounds, soft to palpation, non-tender and non-distended Percussion: normal to percussion Rectal Exam: deferred Results Lab / Micro Data Labs: Laboratory Results - last 24 hr 10/30/24 09:08: POC Glucose 250 H Assessment & Plan Assessment/Plan (1) Irritable bowel syndrome with diarrhea: (2) Diarrhea: QUALIFIERS: Diarrhea type: unspecified type Qualified Code(s): R19.7 - Diarrhea, unspecified (3) Reese esophagus: QUALIFIERS: Reese's esophagus type: without dysplasia Qualified Code(s): K22.70 - Reese's esophagus without dysplasia PLAN: Assessment and Plan Assessment and Plan (1) Reese esophagus: Status: Chronic Qualifiers: Reese's esophagus type: without dysplasia Qualified Code(s): K22.70 - Reese's esophagus without dysplasia (2) Diarrhea: Status: Acute Qualifiers: Diarrhea type: unspecified type Qualified Code(s): R19.7 - Diarrhea, unspecified (3) Irritable bowel syndrome with diarrhea: Status: Acute Orders: Orders Allergen, Food Profile 14 Today K22.70 - Reese's esophagus without dysplasia, K58.0 - Irritable bowel syndrome with diarrhea, R19.7 - Diarrhea, unspecified CRP Today K22.70 - Reese's esophagus without dysplasia, K58.0 - Irritable bowel syndrome with diarrhea, R19.7 - Diarrhea, unspecified CBC W/Diff, Automated Today K22.70 - Reese's esophagus without dysplasia, K58.0 - Irritable bowel syndrome with diarrhea, R19.7 - Diarrhea, unspecified Celiac Disease Profile Today K22.70 - Reese's esophagus without dysplasia, K58.0 - Irritable bowel syndrome with diarrhea, R19.7 - Diarrhea, unspecified Calprotectin, Stool Today K22.70 - Reese's esophagus without dysplasia, K58.0 - Irritable bowel syndrome with diarrhea, R19.7 - Diarrhea, unspecified ANCA Today K22.70 - Reese's esophagus without dysplasia, K58.0 - Irritable bowel syndrome with diarrhea, R19.7 - Diarrhea, unspecified IBD Expanded Profile Today K22.70 - Reese's esophagus without dysplasia, K58.0 - Irritable bowel syndrome with diarrhea, R19.7 - Diarrhea, unspecified Immunoglobulins G/A/M/E Today K22.70 - Reese's esophagus without dysplasia, K58.0 - Irritable bowel syndrome with diarrhea, R19.7 - Diarrhea, unspecified Pancreatic Elastase, Fecal Today K22.70 - Reese's esophagus without dysplasia, K58.0 - Irritable bowel syndrome with diarrhea, R19.7 - Diarrhea, unspecified Thyroid Stim Hormone (TSH) Today K22.70 - Reese's esophagus without dysplasia, K58.0 - Irritable bowel syndrome with diarrhea, R19.7 - Diarrhea, unspecified Comprehensive Metabolic Profil Today K22.70 - Reese's esophagus without dysplasia, K58.0 - Irritable bowel syndrome with diarrhea, R19.7 - Diarrhea, unspecified Plan KARINA PIMENTEL, is a 59 M who presents to the office today for establishment with [facility] for pre-EGD and colonoscopy scheduling. His complaints of change in bowel pattern with associated abdominal pain are suspicious for IBD in conjunction with reported psoriasis and scattered random areas of dermatologic inflammation. review suggested lab orders with , wants to utilize [facility] and feels the orders may be received better from his PCP sucralfate completed continue pantoprazole and famotidine no need for clearance regarding intrathecal pump schedule EGD to monitor LSBE w/biopsy schedule colonoscopy to investigate change in bowel pattern office FU s/p scopes to review results
--- NOTE | 2024-10-30 10:00 | COLBX_PTH ---
PATIENT: KARINA PIMENTEL LOC: EN U#:[id number] AGE/SX: 59/M ROOM: RE10/30/[address]: Dr. Liu Carcamo DO : 1965 BED: DIS: 10/30/2024 SPEC #: [id number] RECD: 10/30/24 12:34 STATUS: RADHA FADIA #: [id number] ZORAIDA: 10/30/24 10:[address]: Liu Carcamo DEPT: SURGICAL PATHOLOGY RECD BY: Houston Nobles ENTERED: 10/30/24 13:42 SP TYPE: COLON BX OTHR DR: Dr. Tereso Pereira MD Tissues: A - Esophagus, NOS B - Ileum, NOS C - COLON BIOPSY D - COLON BIOPSY E - Sigmoid colon biopsy Procedures: Surgery Specimen Level IV HEADER OPERATION: Colonoscopy with biopsies and polypectomy, EGD with biopsy PRE-OP DIAGNOSIS: Sanders's esophagus and diarrhea TISSUE SUBMITTED: A- Distal esophagus biopsy, B- Terminal ileum biopsy, C- Random colon biopsy, D- Hepatic flexure polyp biopsy, E- Sigmoid polyp MICROSCOPIC DIAGNOSIS A. Distal Esophagus, Sanders's Esophagus, Biopsy: - Sanders mucosa negative for dysplasia. B. Small Bowel, Terminal Ileum, Biopsy: - Normal villous architecture with no specific pathologic change. C. Colon, Random, Biopsy: - No specific pathologic change. - The histologic features of microscopic colitis are not demonstrated. D. Colon, Hepatic Flexure, Polyp, Biopsy: - Tubular adenoma. E. Sigmoid Colon, Polyp, Biopsy: - Tubular adenoma. MICROSCOPIC DESCRIPTION Slides are reviewed. GROSS DESCRIPTION A. Received in formalin in a container labeled with the patient's name, date of , and distal esophagus biopsy are multiple hernandez-pink fragments of mucosal tissue measuring 0.7 x 0.7 x 0.3 cm in aggregate. Submitted in toto in A1. B. Received in formalin in a container labeled with the patient's name, date of , and terminal ileum biopsy are 3 hernandez-pink fragments of mucosal tissue ranging from 0.2 x 0.2 x 0.2 cm to 0.4 x 0.3 x 0.3 cm. Submitted in toto in B1. C. Received in formalin in a container labeled with the patient's name, date of , and random colon biopsy are multiple hernandez-pink fragments of mucosal tissue measuring 0.9 x 0.6 x 0.3 cm in aggregate. Submitted in toto in C1. D. Received in formalin in a container labeled with the patient's name, date of , and polyp at hepatic flexure biopsy is a 0.4 x 0.3 x 0.3 cm fragment of hernandez-pink mucosal tissue. Submitted in toto in D1. E. Received in formalin in a container labeled with the patient's name, date of , and sigmoid polyp is a 0.5 x 0.4 x 0.3 cm fragment of hernandez-pink mucosal tissue. Submitted in toto in E1. SB 10/30/2024 CPT:28714c4
--- NOTE | 2024-10-30 11:05 | OP.EGD_ITS ---
Patient Name: Sanya Viramontes Procedure Date: 10/30/2024 10:27 AM Date of : 1965 Age: 59 Procedure: Upper GI endoscopy Indications: Follow-up of Sanders's esophagus Providers: Liu Carcamo DO Referring MD: Tereso Pereira MD Medicines: Monitored Anesthesia Care Patient Profile: This is a 59 year old male. Refer to note in patient chart for documentation of history and physical. Patient has symptoms of chronic heartburn. Complications: No immediate complications. Procedure: Pre-Anesthesia Assessment: - Prior to the procedure, a History and Physical was performed, and patient medications and allergies were reviewed. The patient is competent. The risks and benefits of the procedure and the sedation options and risks were discussed with the patient. All questions were answered and informed consent was obtained. Patient identification and proposed procedure were verified by the physician in the pre-procedure area. Mental Status Examination: normal. Airway Examination: normal oropharyngeal airway and neck mobility. Respiratory Examination: clear to auscultation. CV Examination: normal. ASA Grade Assessment: II - A patient with mild systemic disease. After reviewing the risks and benefits, the patient was deemed in satisfactory condition to undergo the procedure. The anesthesia plan was to use moderate sedation / analgesia (conscious sedation). Immediately prior to administration of medications, the patient was re-assessed for adequacy to receive sedatives. The heart rate, respiratory rate, oxygen saturations, blood pressure, adequacy of pulmonary ventilation, and response to care were monitored throughout the procedure. The physical status of the patient was re-assessed after the procedure. After obtaining informed consent, the endoscope was passed under direct vision. Throughout the procedure, the patient's blood pressure, pulse, and oxygen saturations were monitored continuously. The Colonoscope was introduced through the mouth, and advanced to the third part of the duodenum. Small bowel enteroscopy was deemed necessary. The upper GI endoscopy was accomplished without difficulty. The patient tolerated the procedure well. Scope In: 10:36:37 AM Scope Out: 10:39:21 AM Total Procedure Duration Time 0 hours 2 minutes 44 seconds Findings: Ulceration was found at the vocal cords. There were esophageal mucosal changes secondary to established long-segment Sanders's disease present in the lower third of the esophagus. The maximum longitudinal extent of these mucosal changes was 10 cm in length. Mucosa was biopsied with a cold forceps for histology in a targeted manner at intervals of 1 cm in the lower third of the esophagus. One specimen bottle was sent to pathology. Verification of patient identification for the specimen was done. Estimated blood loss was minimal. A medium-sized hiatal hernia was present. No other significant abnormalities were identified in a careful examination of the stomach. No gross lesions were noted in the first portion of the duodenum. Impression: - Ulceration was found at the vocal cords. - Esophageal mucosal changes secondary to established long-segment Sanders's disease. Biopsied. - Medium-sized hiatal hernia. - No gross lesions in the first portion of the duodenum. Recommendation: - Discharge patient to home. - Resume previous diet. - Continue present medications. - Await pathology results. Procedure Code(s): --- Professional --- 74304, Small intestinal endoscopy, enteroscopy beyond second portion of duodenum, not including ileum; with biopsy, single or multiple CPT copyright 2021 [employer]. All rights reserved. The codes documented in this report are preliminary and upon pretzel twister review may be revised to meet current compliance requirements. Liu Carcamo DO 10/30/2024 11:04:49 AM This report has been signed electronically. Number of Addenda: 0 Note Initiated On: 10/30/2024 10:27 AM
--- NOTE | 2024-10-30 11:05 | OP.CCLET_ITS ---
10/30/2024 Tereso Pereira MD [address] [id number] Re : Upper GI endoscopy procedure for Sanya Viramontes Dear Dr. Pereira This procedure was performed on Wednesday, October 30, 2024. My impressions and recommendations are as follows: Impressions : - Ulceration was found at the vocal cords. - Esophageal mucosal changes secondary to established long-segment Sanders's disease. Biopsied. - Medium-sized hiatal hernia. - No gross lesions in the first portion of the duodenum. Recommendations : - Discharge patient to home. - Resume previous diet. - Continue present medications. - Await pathology results. My findings are described in the full procedure note, which is enclosed. If I can be of further assistance, please feel free to contact me at . Sincerely, Liu Carcamo, 10/30/2024 11:04:49 AM This report has been signed electronically.
--- NOTE | 2024-10-30 11:05 | PCM.POST.ANE ---
Anesthesia: Postop Eval I Current Vital Signs Temperature: 98.4 F Pulse Rate: 62 Blood Pressure: 115/57 Respiratory Rate: 16 Pulse Ox: 93 Oxygen Delivery Method: Room Air Assessment Airway patent: Yes Spontaneous unlabored respirations: Yes Mental status: Awake and Calm nausea: No Vomiting: No Anesthesia Complication: No Fluid Hydration Crystalloid volume administer (ml): 60 Total IV fluid infused: 60 Progress Note Anesthesia document: Postop Eval 1 completed: Yes
--- NOTE | 2024-10-30 11:08 | OP.COLON_ITS ---
Patient Name: Sanya Viramontes Procedure Date: 10/30/2024 10:43 AM Date of : 1965 Age: 59 Procedure: Colonoscopy Indications: Clinically significant diarrhea of unexplained origin Providers: Liu Carcamo DO Referring MD: Tereso Pereira MD Medicines: Monitored Anesthesia Care Patient Profile: This is a 59 year old male. Refer to note in patient chart for documentation of history and physical. Patient has symptoms of chronic heartburn. Last Colonoscopy: date unknown. Unable to locate last colonoscopy report. Complications: No immediate complications. Procedure: Pre-Anesthesia Assessment: - Prior to the procedure, a History and Physical was performed, and patient medications and allergies were reviewed. The patient is competent. The risks and benefits of the procedure and the sedation options and risks were discussed with the patient. All questions were answered and informed consent was obtained. Patient identification and proposed procedure were verified by the physician in the pre-procedure area. Mental Status Examination: normal. Airway Examination: normal oropharyngeal airway and neck mobility. Respiratory Examination: clear to auscultation. CV Examination: normal. ASA Grade Assessment: II - A patient with mild systemic disease. After reviewing the risks and benefits, the patient was deemed in satisfactory condition to undergo the procedure. The anesthesia plan was to use moderate sedation / analgesia (conscious sedation). Immediately prior to administration of medications, the patient was re-assessed for adequacy to receive sedatives. The heart rate, respiratory rate, oxygen saturations, blood pressure, adequacy of pulmonary ventilation, and response to care were monitored throughout the procedure. The physical status of the patient was re-assessed after the procedure. After I obtained informed consent, the scope was passed under direct vision. Throughout the procedure, the patient's blood pressure, pulse, and oxygen saturations were monitored continuously. The Colonoscope was introduced through the anus and advanced to the terminal ileum, with identification of the appendiceal orifice and IC valve. The colonoscopy was performed without difficulty. The patient tolerated the procedure well. The quality of the bowel preparation was adequate. The terminal ileum, ileocecal valve, appendiceal orifice, and rectum were photographed. Scope In: 10:41:14 AM Scope Withdrawal Time 0 hours 12 minutes 42 seconds Scope Out: 10:57:45 AM Total Procedure Duration Time 0 hours 16 minutes 31 seconds Findings: The perianal and digital rectal examinations were normal. A few small and large-mouthed diverticula were found in the recto-sigmoid colon and sigmoid colon. A 7 mm polyp was found in the sigmoid colon. The polyp was sessile. The polyp was removed with a hot snare. Resection and retrieval were complete. Verification of patient identification for the specimen was done. Estimated blood loss was minimal. An area of mildly congested mucosa was found in the recto-sigmoid colon, in the sigmoid colon, in the transverse colon and at the hepatic flexure. Biopsies for histology were taken with a cold forceps from the entire colon for evaluation of microscopic colitis. Impression: - Diverticulosis in the recto-sigmoid colon and in the sigmoid colon. - One 7 mm polyp in the sigmoid colon, removed with a hot snare. Resected and retrieved. - Congested mucosa in the recto-sigmoid colon, in the sigmoid colon, in the transverse colon and at the hepatic flexure. Biopsied. Recommendation: - Discharge patient to home. - Resume previous diet. - Continue present medications. - Repeat colonoscopy in 5 years for surveillance. Procedure Code(s): --- Professional --- 61385, Colonoscopy, flexible; with removal of tumor(s), polyp(s), or other lesion(s) by snare technique 86713, 59, Colonoscopy, flexible; with biopsy, single or multiple CPT copyright 2021 [employer]. All rights reserved. The codes documented in this report are preliminary and upon coke drawer review may be revised to meet current compliance requirements. Liu Carcamo DO 10/30/2024 11:08:11 AM This report has been signed electronically. Number of Addenda: 0 Note Initiated On: 10/30/2024 10:43 AM
--- NOTE | 2024-10-30 11:08 | OP.CCLET_ITS ---
10/30/2024 Tereso Pereira MD [address] [id number] Re : Colonoscopy procedure for Sanya Jararebeka Dear Dr. Pereira This procedure was performed on Wednesday, October 30, 2024. My impressions and recommendations are as follows: Impressions : - Diverticulosis in the recto-sigmoid colon and in the sigmoid colon. - One 7 mm polyp in the sigmoid colon, removed with a hot snare. Resected and retrieved. - Congested mucosa in the recto-sigmoid colon, in the sigmoid colon, in the transverse colon and at the hepatic flexure. Biopsied. Recommendations : - Discharge patient to home. - Resume previous diet. - Continue present medications. - Repeat colonoscopy in 5 years for surveillance. My findings are described in the full procedure note, which is enclosed. If I can be of further assistance, please feel free to contact me at . Sincerely, Liu Carcamo, 10/30/2024 11:08:11 AM This report has been signed electronically.
--- NOTE | 2024-10-30 11:30 | PCM.POSTANE2 ---
Anesthesia Postop Eval I Sum Postop Eval Completion status Anesthesia document: Postop Eval 1 completed: Yes Anesthesia Postop Eval I Summary Anesthesia Postop Eval I Summary: Anesthesia Postop Eval I: Assessment Summary Airway patent Yes 10/30/24 11:06 [email or web address] Spontaneous unlabored Yes 10/30/24 11:06 [email or web address] respirations Mental status Awake,Calm 10/30/24 11:06 [email or web address] nausea No 10/30/24 11:06 [email or web address] Vomiting No 10/30/24 11:06 [email or web address] Anesthesia Postop Eval I: Fluid Summary Crystalloid volume administer 60 10/30/24 11:06 [email or web address] (ml) Colloids volume administered ( ml) Blood Product volume administered (ml) Total IV fluid infused 60 10/30/24 11:06 [email or web address] Anesthesia Postop Eval I: Summary Notes Anesthesia Complication No 10/30/24 11:06 [email or web address] Anesthesia Complication Comment: Post-operative progress note Anesthesia: Postop Eval II Evaluation Mental status: Awake Pain Level: 0 nausea: No Vomiting: No
== END 2024-10-30 12:05 | disposition home or self-care (01) ==
LOC: EN 08:48 → AC 08:50
PROVIDERS: PCP Family Medicine; Referring Provider Family Medicine; Visit Provider Internal Medicine Gastroenterology
PROC: 0DJD8ZZ Inspection of Lower Intestinal Tract, Via Natural or Artificial Opening Endoscopic (ICD-10-PCS; CPT 45378; principal; 2024-10-30 09:55)
DX: D12.3 Benign neoplasm of transverse colon (principal); E11.9 Type 2 diabetes mellitus without complications; K58.0 Irritable bowel syndrome with diarrhea; K57.30 Diverticulosis of large intestine without perforation or abscess without bleeding; K22.70 Barrett's esophagus without dysplasia; J38.7 Other diseases of larynx; D12.5 Benign neoplasm of sigmoid colon; E78.00 Pure hypercholesterolemia, unspecified; K44.9 Diaphragmatic hernia without obstruction or gangrene; G89.29 Other chronic pain; Z79.84 Long term (current) use of oral hypoglycemic drugs; Z79.85 Long-term (current) use of injectable non-insulin antidiabetic drugs; Z79.899 Other long term (current) drug therapy; Z87.891 Personal history of nicotine dependence; Z83.3 Family history of diabetes mellitus
CPT/HCPCS: 45385; 45380; 43239; 82962; 88305; A4216; J2405

== ENCOUNTER → 2024-11-05 | Outpatient (CLI) | payer MEDICARE, MEDICAID, SELFPAY ==
--- NOTE | 2024-11-05 09:28 | US_ITS ---
PROCEDURE: ABD LIMITED W/ ELASTOGRAPHY (USABDLELPARO), 11/05/2024 REASON FOR EXAM: ELEVATED LIER ENZYMES COMPARISON: None TECHNIQUE: Grayscale and color Doppler imaging of the right upper quadrant was performed. WalkHub S-shear wave elastography was performed for non-invasive assessment of liver tissue stiffness. FINDINGS: Liver: Echogenic. 19.5 cm in length. Gallbladder: Unremarkable. Reportedly, sonographic Horton's was negative. Biliary tree: Unremarkable. CBD measures 3 mm. Pancreas: Partially obscured by shadowing bowel gas, grossly unremarkable as visualized. Right kidney: Unremarkable. 10.8 cm in length. Other: No visualized free fluid. Hepatic elastography: Number of measurements: 15 measurements across 3 regions, 5 measurements per region.. US probe: CA1-7A. EQI median: 8.7 kPa EQI median velocity: 1.7 m/s IQR/Med: 13.5-25.9% (kPa) and 7.1-12.2% (m/s). If the IQR/Med is IQR/median >30% (for kPa) or >15% in m/s, the variance in the measurements is a large and the accuracy of the measurement may be in question. US/ABD Limited w/ Elastography IMPRESSION: 1. Hepatomegaly and echogenic appearance of the hepatic parenchyma, typically s uggesting hepatic steatosis. Fibrosis/cirrhosis may also have this appearance. 2. Liver stiffness is 8.7 kPa. Per the below 2020 SRU criteria, this rules out compensated advanced chronic liver disease in the absence of other known clinical signs. If there are known clinical signs, furth er testing may be needed for confirmation. 3. Additional description as above. Assessment is per the Update to the SRU Liver Elastography Consensus Statement (2020) Note that the above assessment of liver fibrosis is vendor-neutral and intended for use in fibrosis related to viral etiologies and non-alcoholic fatty-liver disease (NAFLD); in causes other than viral hepat itis and NAFLD, the cutoff values are currently not well established. In some patients with NAFLD, the cutoff values for cACLD may be lower (7-9 kPa). Note also that in the setting of elevated LFTs, nonfasting or vascular congestion, the stage of lifer fibrosis may be overestimated. Previous SRU reference values: <1.37 m/s (5.7kPa): No to mild fibrosis 1.37 m/s - 2.2 m/s: Moderate to severe fibrosis >2.2 m/s (15kPa): Significant fibrosis / cirrhosis Reading Location: [id number]
== END | disposition home or self-care (01) ==
LOC: US 09:19
PROVIDERS: PCP Family Medicine
DX: R74.01 Elevation of levels of liver transaminase levels (principal)
CPT/HCPCS: 76705; 76981

== ENCOUNTER → 2024-11-15 | Outpatient (CLI) | payer MEDICARE, MEDICAID, SELFPAY ==
--- NOTE | 2024-11-15 11:00 | CT_ITS ---
PROCEDURE: Diarrhea. 11/15/2024 REASON FOR EXAM: ELEVATED LIVER ENZYMES TECHNIQUE: Abdomen and pelvis CT with intravenous contrast. Coronal and Sagittal reconstruction series were provided. PATIENT PREPARATION: Per protocol ORAL CONTRAST TYPE: None. CONTRAST: Isovue-300 VOLUME: 89 mL Gauge IV One or more dose reduction techniques were used (e.g., Automated exposure control, adjustment of the mA and/or kV according to patient size, use of iterative reconstruction technique. RADIATION DOSE SUMMARY: CTDlvol: 16 mGy DLP: 970.28 mGycm COMPARISON: None FINDINGS: Lung bases: Unremarkable Liver: Diffuse fatty infiltration. Gallbladder: Unremarkable Spleen: Normal size. Pancreas: Normal size without evidence of mass surrounding inflammation or ductal dilation. Adrenals: Unremarkable Kidneys: Normal renal sizes. No hydronephrosis. Bladder: Unremarkable Bowel: Scattered sigmoid diverticula Appendix: Unremarkable Lymph nodes: Unremarkable. Vasculature: Mild diffuse atherosclerotic calcifications are noted. Peritoneum / Retroperitoneum: Unremarkable Bones: Disc space narrowing at the L5-S1 level with anterior listhesis of L5 on S1 and spondylolysis of the pars interarticularis of the L5 vertebrae. CT/Abdomen/Pelvis WITH Contrast IMPRESSION: Fatty infiltration of the liver. Listhesis and spondylolysis at the L5-S1 level. Reading Location: [facility]
== END | disposition home or self-care (01) ==
LOC: CT 10:58
PROVIDERS: PCP Family Medicine
DX: R74.01 Elevation of levels of liver transaminase levels (principal)
CPT/HCPCS: 74177; Q9967; A4216

== ENCOUNTER → 2025-02-03 | Outpatient (CLI) | payer MEDICARE, MEDICAID, SELFPAY ==
[2025-02-03 13:05] LABS: AST(SGOT) 39 U/L (<=37); Alanine Aminotransfer ALT/SGPT 76 U/L (<=46); Albumin, Serum 4.2 g/dL (3.4-4.8); Alkaline Phosphatase 125 U/L (40-129); Anion Gap 14 (5-15); BUN 14 mg/dL (4-19); BUN/Creat Ratio 21.8 RATIO (10-20); Calcium,Total 9.2 mg/dL (7.6-11.0); Carbon Dioxide 21.8 mmol/L (21.0-32.0); Chloride 103 mmol/L (98-108); Cholesterol 128 mg/dL (<=200); Globulin 3.1 g/dL (2.2-4.2); Glucose 248 mg/dL (70-99); Low Density Lipoprotein Calc. 33 mg/dL; Potassium 3.9 mmol/L (3.3-5.1); Triglycerides 176 mg/dL; Very Low Density Lipoprotein 35 mg/dL (5-40); cholesterol:hdl ratio screen 2.14
== END | disposition home or self-care (01) ==
LOC: MFPLAB 09:18
PROVIDERS: PCP Family Medicine; Referring Provider Family Medicine; Visit Provider Family Medicine
DX: E11.9 Type 2 diabetes mellitus without complications (principal)
CPT/HCPCS: 36415; 80053; 80061

== ENCOUNTER → 2025-02-20 | Outpatient (CLI) | payer MEDICARE, MEDICAID, SELFPAY ==
--- NOTE | 2025-02-20 08:13 | MRI_ITS ---
PROCEDURE: SPINE LUMBAR (ROUTINE) 02/20/2025 REASON FOR EXAM: PAIN, DDD, SPONDY TECHNIQUE: SPINE LUMBAR (ROUTINE) COMPARISON: X-ray lumbar spine 02/14/2025. FINDINGS: Vertebrae: No abnormal lesion or compression fracture. Bilateral L5 spondylolysis. Alignment: Normal alignment. Conus Medullaris: Unremarkable. L1-2: No foraminal or canal stenosis. L2-3: Disc bulge. Mild inferior bilateral foramina stenosis. No canal stenosis. L3-4: Disc bulge. Facet joint arthropathy. No significant foraminal or canal stenosis. L4-5: Disc bulge. Facet joint arthropathy. No significant foraminal or canal stenosis. L5-S1: Anterolisthesis L5 on S1 by 4 mm from facet joint arthropathy and spondylolysis. Abutment upon the exiting bilateral nerves and moderate bilateral foramina stenosis. No significant canal stenosis. Sacrum: Unremarkable. MRI/Spine Lumbar (Routine) IMPRESSION: Bilateral L5 spondylolysis with moderate canal stenosis and abutment upon the e xiting bilateral L5 nerves. No significant canal stenosis. Reading Location: [facility]
--- OUTSIDE RECORDS SUMMARY | 2025-02-20 08:58 | XMS RPT_ITS | CCD ---
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 Albumin/Globulin [Mass ratio] 1.4 {ratio} Normal 0.9-2.4 [facility] Comment on above: Performed By: #### L 500.4050, L500.4100 #### [facility] [address] [place], [address] ALK PHOS 125 U/L Normal 40-129 [facility] Comment on above: Performed By: #### L 500.4050, L500.4100 #### [facility] [address] [place], [address] ALT [Catalytic activity/Vol] 76 U/L High <=46 [facility] Comment on above: Performed By: #### L 500.4050, L500.4100 #### [facility] [address] [place], [address] AST [Catalytic activity/Vol] 39 U/L High <=37 [facility] Comment on above: Performed By: #### L 500.4050, L500.4100 #### [facility] [address] [place], [address] Bilirubin [Mass/Vol] 0.31 mg/dL Normal 0.00-1.30 [facility] Comment on above: Performed By: #### L 500.4050, L500.4100 #### [facility] [address] [place], [address] BUN/CRE 21.8 RATIO High 10-20 [facility] Comment on above: Performed By: #### L 500.4050, L500.4100 #### [facility] [address] [place], [address] Calcium [Mass/Vol] 9.2 mg/dL Normal 7.6-11.0 [facility] Comment on above: Performed By: #### L 500.4050, L500.4100 #### [facility] [address] [place], [address] Chloride [Moles/Vol] 103 mmol/L Normal 98-108 [facility] Comment on above: Performed By: #### L 500.4050, L500.4100 #### [facility] [address] [place], [address] CO2 [Moles/Vol] 21.8 mmol/L Normal 21.0-32.0 [facility] Comment on above: Performed By: #### L 500.4050, L500.4100 #### [facility] [address] [place], [address] Creatinine [Mass/Vol] 0.63 mg/dL Low 0.70-1.20 [facility] Comment on above: Performed By: #### L 500.4050, L500.4100 #### [facility] [address] [place], [address] GAP 14 Normal 5-15 [facility] Comment on above: Performed By: #### L 500.4050, L500.4100 #### [facility] [address] [place], [address] GFR/1.73 sq M.predicted among non-blacks MDRD (S/P/Bld) [Vol rate/Area] 107 mL/min/{1.73_m2} Normal >60 [facility] Comment on above: Result Comment: mL/m in/1.73m2 CKD-EPI Creatinine Equation (2020) Performed By: #### L 500.4050, L500.4100 #### [facility] [address] [place], [address] Globulin (S) [Mass/Vol] 3.1 g/dL Normal 2.2-4.2 [facility] Comment on above: Performed By: #### L 500.4050, L500.4100 #### [facility] [address] [place], [address] Glucose [Mass/Vol] 248 mg/dL High 70-99 [facility] Comment on above: Performed By: #### L 500.4050, L500.4100 #### [facility] [address] [place], [address] Potassium [Moles/Vol] 3.9 mmol/L Normal 3.3-5.1 [facility] Comment on above: Performed By: #### L 500.4050, L500.4100 #### [facility] [address] [place], [address] Sodium [Moles/Vol] 139 mmol/L Normal 133-145 [facility] Comment on above: Performed By: #### L 500.4050, L500.4100 #### [facility] [address] [place], [address] T PROT 7.3 g/dL Normal 5.9-8.4 [facility] Comment on above: Performed By: #### L 500.4050, L500.4100 #### [facility] [address] [place], [address] Urea nitrogen [Mass/Vol] 14 mg/dL Normal 4-19 [facility] Comment on above: Performed By: #### L 500.4050, L500.4100 #### [facility] [address] [place], [address] Glomerular filtration rate ( GFR) estimation/1.73 sq m using serum, plasma, or whole bOrdered By: Tereso Pereira on 02-03-2025 GFR/1.73 sq M.predicted among non-blacks MDRD (S/P/Bld) [Vol rate/Area] 107 mL/min/{1.73_m2} >60 [facility] Comment on above: mL/min/1.73m2 CKD-EP I Creatinine Equation (2020) LDL calc ser/plasOrdered By: Tereso Pereira on 02-03-2025 Cholesterol in LDL [Mass/Vol] 33 mg/dL [facility] Comment on above: Vjofxgxaev=573-868 m g/dL & Higher Apgn=871 mg/dL or greater Laboratory - Chemistry and C hemistry - challengeOrdered By: Tereso Pereira on 02-03-2025 AST [Catalytic activity/Vol] 39 U/L High <38 [facility] Lipid Profileon 02-03-2025 CHOL:HDL 2.14 Normal [facility] Comment on above: Performed By: #### L 500.4050, L500.4100 #### [facility] [address] [place], [address] Cholesterol [Mass/Vol] 128 mg/dL Normal <=200 [facility] Comment on above: Result Comment: Chol esterol level, Desirable <200 mg/dL Borderline high cholesterol 200-239 mg/dL High cholesterol >=240 mg/dL Recommendations of the NCEP Adult Treatment Panel for the following risk-cutoff thresholds for the [place] population. Performed By: #### L 500.4050, L500.4100 #### [facility] [address] [place], [address] Cholesterol in HDL [Mass/Vol] 60 mg/dL Normal [facility] Comment on above: Result Comment: [place] onal Cholesterol Education Program (NCEP) guidelines: <40 mg/dL: Low HDL-cholesterol (major risk factor for CHD) >= 60 mg/dL: High HDL-cholesterol (negative risk factor for CHD) HDL-cholesterol is affected by a number of factors, e.g. smoking, exercise, hormones, sex and age. Performed By: #### L 500.4050, L500.4100 #### [facility] [address] [place], [address] Cholesterol in LDL [Mass/Vol] 33 mg/dL Normal [facility] Comment on above: Result Comment: Bord xbvmim=917-302 mg/dL Higher Quzp=396 mg/dL or greater Performed By: #### L 500.4050, L500.4100 #### [facility] [address] [place], [address] Cholesterol in VLDL [Mass/Vol] 35 mg/dL Normal 5-40 [facility] Comment on above: Performed By: #### L 500.4050, L500.4100 #### [facility] [address] [place], [address] Triglyceride [Mass/Vol] 176 mg/dL Normal [facility] Comment on above: Result Comment: The drugs N-Acetylcysteine and Metamizole may falsely depress this assay. Normal range: <150 mg/dL Borderline High: 150-199 mg/dL High: 200-499 mg/dL Very High: >500 mg/dL Performed By: #### L 500.4050, L500.4100 #### [facility] [address] [place], [address] Potassium measurement (mass/ volume)Ordered By: Tereso Pereira on 02-03-2025 Potassium (Unsp spec) [Mass/Vol] 3.9 mmol/L 3.3-5.1 [facility] Screening total cholesterol/ high density lipoprotein (HDL) cholesterol ratioOrdered By: Tereso Pereira on 02-03-2025 Cholesterol.total/Cholest dina in HDL [Mass ratio] 2.14 {ratio} [facility] Serum creatinine measurement (mass/volume)Ordered By: Tereso Pereira on 02-03-2025 Creatinine [Mass/Vol] 0.63 mg/dL Low 0.70-1.20 [facility] Serum globulin measurementOr dered By: Tereso Pereira on 02-03-2025 Globulin (S) [Mass/Vol] 3.1 g/dL 2.2-4.2 [facility] Serum glucose measurement (m ass/volume)Ordered By: Tereso Pereira on 02-03-2025 Glucose [Mass/Vol] 248 mg/dL High 70-99 [facility] Serum or plasma alanine mccullough otransferase (ALT) measurementOrdered By: Tereso Pereira on 02-03-2025 ALT [Catalytic activity/Vol] 76 U/L High <47 [facility] Serum or plasma albumin karyn urement (mass/volume)Ordered By: Tereso Pereira on 02-03-2025 Albumin [Mass/Vol] 4.2 g/dL 3.4-4.8 [facility] Serum or plasma albumin/glob ulin mass ratioOrdered By: Tereso Pereira on 02-03-2025 Albumin/Globulin [Mass ratio] 1.4 {ratio} 0.9-2.4 [facility] Serum or plasma alkaline eddie sphatase measurementOrdered By: Tereos Pereira on 02-03-2025 ALP [Catalytic activity/Vol] 125 U/L 40-129 [facility] Serum or plasma calcium karyn urement (mass/volume)Ordered By: Tereso Pereira on 02-03-2025 Calcium [Mass/Vol] 9.2 mg/dL 7.6-11.0 [facility] Serum or plasma cholesterol in HDL measurement (mass/volume)Ordered By: Tereso Pereira on 02-03-2025 Cholesterol in HDL [Mass/Vol] 60 mg/dL >40 [facility] Comment on above: National Cholesterol Education Program (NCEP) guidelines:<40 mg/dL: Low HDL-cholesterol (major risk factor for CHD)>= 60 mg/dL: High HDL-cholesterol (negative risk factor for CHD)HDL-cholesterol is affected by a number of factors, e.g. smoking, exercise, hormones, sex and age. Serum or plasma cholesterol measurement (mass/volume)Ordered By: Tereso Pereira on 02-03-2025 Cholesterol [Mass/Vol] 128 mg/dL <201 [facility] Comment on above: Cholesterol level, D esirable <200 mg/dLBorderline high cholesterol 200-239 mg/dLHigh cholesterol >=240 mg/dLRecommendations of the NCEP Adult Treatment Panel for the following risk-cutoff thresholds for the [place] population. Serum or plasma urea nitroge n measurement (mass/volume)Ordered By: Tereso Pereira on 02-03-2025 Urea nitrogen [Mass/Vol] 14 mg/dL 4-19 [facility] Sodium levelOrdered By: Tereso Pereira on 02-03-2025 Sodium [Moles/Vol] 139 mmol/L 133-145 [facility] Total proteinOrdered By: Chaya Pereira on 02-03-2025 Protein [Mass/Vol] 7.3 g/dL 5.9-8.4 [facility] Triglycerides measurementOrd ered By: Tereso Pereira on 02-03-2025 Triglyceride [Mass/Vol] 176 mg/dL <199 [facility] Comment on above: The drugs N-Acetylcy steine and Metamizole may falsely depress this assay. Normal range: <150 mg/dLBorderline High: 150-199 mg/dLHigh: 200-499 mg/dLVery High: >500 mg/dL Abdomen/Pelvis WITH Contrast on 11-15-2024 Abdomen/Pelvis WITH Contrast [facility] Imaging Services [address] [place], [place] [address] Abdomen/Pelvis WITH Contrast MR#: [id number] Acct: [id number] Name: KARINA PIMENTEL Rep #: [id number] : 1965 M 59 From: Zak dougherty MD PCP: Dr. Tereso Pereira MD Status: REG CLI Study: Abdomen/Pelvis WITH Contrast Date of Exam: Exam# [id number] Ordering Dr: Erika Culver [employer] PROCEDURE: Diarrhea. 11/15/2024 REASON FOR EXAM: ELEVATED LIVER ENZYMES TECHNIQUE: Abdomen and pelvis CT with intravenous contrast. Coronal and Sagittal reconstruction series were provided. PATIENT PREPARATION: Per protocol ORAL CONTRAST TYPE: None. CONTRAST: Isovue-300 VOLUME: 89 mL Gauge IV One or more dose reduction techniques were used (e.g., Automated exposure control, adjustment of the mA and/or kV according to patient size, use of iterative reconstruction technique. RADIATION DOSE SUMMARY: CTDlvol: 16 mGy DLP: 970.28 mGycm COMPARISON: None FINDINGS: Lung bases: Unremarkable Liver: Diffuse fatty infiltration. Gallbladder: Unremarkable Spleen: Normal size. Pancreas: Normal size without evidence of mass surrounding inflammation or ductal dilation. Adrenals: Unremarkable Kidneys: Normal renal sizes. No hydronephrosis. Bladder: Unremarkable Bowel: Scattered sigmoid diverticula Appendix: Unremarkable Lymph nodes: Unremarkable. Vasculature: Mild diffuse atherosclerotic calcifications are noted. Peritoneum / Retroperitoneum: Unremarkable Bones: Disc space narrowing at the L5-S1 level with anterior listhesis of L5 on S1 and spondylolysis of the pars interarticularis of the L5 vertebrae. CT/Abdomen/Pelvis WITH Contrast IMPRESSION: Fatty infiltration of the liver. Listhesis and spondylolysis at the L5-S1 level. Reading Location: [id number] CC: PRECIOUS Culver; Dr. Tereso Pereira MD Wet Finisher Wool: Signed Normal [facility] ABD Limited w/ Elastographyo n 11-05-2024 ABD Limited w/ Elastography [facility] Imaging Services [address] [place], [place] [address] ABD Limited w/ Elastography MR#: [id number] Acct: [id number] Name: KARINA PIMENTEL Rep #: [id number] : 1965 M 59 From: Luis Frost MD PCP: Dr. Tereso Pereira MD Status: REG CLI Study: ABD Limited w/ Elastography Date of Exam: 03/24 Exam# [id number] Ordering Dr: Erika Culver PROCEDURE: ABD LIMITED W/ ELASTOGRAPHY (USABDLELPARO), 11/05/2024 REASON FOR EXAM: ELEVATED LIER ENZYMES COMPARISON: None TECHNIQUE: Grayscale and color Doppler imaging of the right upper quadrant was performed. Iron.io S-shear wave elastography was performed for non-invasive assessment of liver tissue stiffness. FINDINGS: Liver: Echogenic. 19.5 cm in length. Gallbladder: Unremarkable. Reportedly, sonographic Horton's was negative. Biliary tree: Unremarkable. CBD measures 3 mm. Pancreas: Partially obscured by shadowing bowel gas, grossly unremarkable as visualized. Right kidney: Unremarkable. 10.8 cm in length. Other: No visualized free fluid. Hepatic elastography: Number of measurements: 15 measurements across 3 regions, 5 measurements per region.. US probe: CA1-7A. EQI median: 8.7 kPa EQI median velocity: 1.7 m/s IQR/Med: 13.5-25.9% (kPa) and 7.1-12.2% (m/s). If the IQR/Med is IQR/median >30% (for kPa) or >15% in m/s, the variance in the measurements is a large and the accuracy of the measurement may be in question. US/ABD Limited w/ Elastography IMPRESSION: 1. Hepatomegaly and echogenic appearance of the hepatic parenchyma, typically suggesting hepatic steatosis. Fibrosis/cirrhosis may also have this appearance. 2. Liver stiffness is 8.7 kPa. Per the below 2020 SRU criteria, this rules out compensated advanced chronic liver disease in the absence of other known clinical signs. If there are known clinical signs, further testing may be needed for confirmation. 3. Additional description as above. Assessment is per the Update to the SRU Liver Elastography Consensus Statement (2020) Note that the above assessment of liver fibrosis is vendor-neutral and intended for use in fibrosis related to viral etiologies and non-alcoholic fatty-liver disease (NAFLD); in causes other than viral hepatitis and NAFLD, the cutoff values are currently not well established. In some patients with NAFLD, the cutoff values for cACLD may be lower (7-9 kPa). Note also that in the setting of elevated LFTs, nonfasting or vascular congestion, the stage of lifer fibrosis may be overestimated. Previous U reference values: <1.37 m/s (5.7kPa): No to mild fibrosis 1.37 m/s - 2.2 m/s: Moderate to severe fibrosis >2.2 m/s (15kPa): Significant fibrosis / cirrhosis Reading Location: [id number] CC: PRECIOUS Culver; Dr. Tereso Pereira MD Wet Finisher Wool: Signed Normal [facility] Bedside Glucoseon 10-30-2024 FINGERSTICK GLU 250 mg/dL High 74-106 [facility] Comment on above: Result Comment: DOLORES RODRÍGUEZ OF PATIENT CARE PER NURSING PROTOCOL Performed By: #### L 501.080 #### [facility] [address] [facility] [facility] [place], [address] Colonoscopy Reporton 025 Colonoscopy Report [facility] Medical Records Department [address] [place] [address] Colonoscopy Report MR#: [id number] Acct: [id number] Name: KARINA PIMENTEL Rep #: [id number] : 1965 59 From: Liu Carcamo DO PCP: Dr. Tereso Pereira MD Status:[facility] Patient Name: Karina Pimentel Procedure Date: 10/30/2024 10:43 AM Date of : 1965 Age: 59 Procedure: Colonoscopy Indications: Clinically significant diarrhea of unexplained origin Providers: Liu Carcamo DO Referring MD: Tereso Pereira MD Medicines: Monitored Anesthesia Care Patient Profile: This is a 59 year old male. Refer to note in patient chart for documentation of history and physical. Patient has symptoms of chronic heartburn. Last Colonoscopy: date unknown. Unable to locate last colonoscopy report. Complications: No immediate complications. Procedure: Pre-Anesthesia Assessment: - Prior to the procedure, a History and Physical was performed, and patient medications and allergies were reviewed. The patient is competent. The risks and benefits of the procedure and the sedation options and risks were discussed with the patient. All questions were answered and informed consent was obtained. Patient identification and proposed procedure were verified by the physician in the pre-procedure area. Mental Status Examination: normal. Airway Examination: normal oropharyngeal airway and neck mobility. Respiratory Examination: clear to auscultation. CV Examination: normal. ASA Grade Assessment: II - A patient with mild systemic disease. After reviewing the risks and benefits, the patient was deemed in satisfactory condition to undergo the procedure. The anesthesia plan was to use moderate sedation / analgesia (conscious sedation). Immediately prior to administration of medications, the patient was re-assessed for adequacy to receive sedatives. The heart rate, respiratory rate, oxygen saturations, blood pressure, adequacy of pulmonary ventilation, and response to care were monitored throughout the procedure. The physical status of the patient was re-assessed after the procedure. After I obtained informed consent, the scope was passed under direct vision. Throughout the procedure, the patient's blood pressure, pulse, and oxygen saturations were monitored continuously. The Colonoscope was introduced through the anus and advanced to the terminal ileum, with identification of the appendiceal orifice and IC valve. The colonoscopy was performed without difficulty. The patient tolerated the procedure well. The quality of the bowel preparation was adequate. The terminal ileum, ileocecal valve, appendiceal orifice, and rectum were photographed. Scope In: 10:41:14 AM Scope Withdrawal Time 0 hours 12 minutes 42 seconds Scope Out: 10:57:45 AM Total Procedure Duration Time 0 hours 16 minutes 31 seconds Findings: The perianal and digital rectal examinations were normal. A few small and large-mouthed diverticula were found in the recto-sigmoid colon and sigmoid colon. A 7 mm polyp was found in the sigmoid colon. The polyp was sessile. The polyp was removed with a hot snare. Resection and retrieval were complete. Verification of patient identification for the specimen was done. Estimated blood loss was minimal. An area of mildly congested mucosa was found in the recto-sigmoid colon, in the sigmoid colon, in the transverse colon and at the hepatic flexure. Biopsies for histology were taken with a cold forceps from the entire colon for evaluation of microscopic colitis. Impression: - Diverticulosis in the recto-sigmoid colon and in the sigmoid colon. - One 7 mm polyp in the sigmoid colon, removed with a hot snare. Resected and retrieved. - Congested mucosa in the recto-sigmoid colon, in the sigmoid colon, in the transverse colon and at the hepatic flexure. Biopsied. Recommendation: - Discharge patient to home. - Resume previous diet. - Continue present medications. - Repeat colonoscopy in 5 years for surveillance. Procedure Code(s): --- Professional --- 44657, Colonoscopy, flexible; with removal of tumor(s), polyp(s), or other lesion(s) by snare technique 42012, 59, Colonoscopy, flexible; with biopsy, single or multiple CPT copyright 2021 [employer]. All rights reserved. The codes documented in this report are preliminary and upon tile setter apprentice review may be revised to meet current compliance requirements. Liu Carcamo DO 10/30/2024 11:08:11 AM This report has been signed electronically. Number of Addenda: 0 Note Initiated On: 10/30/2024 10:43 AM 10/30/24 1108 Date Liu Casper Signature: Date (if indicated) CC: Dr. Tereso Pereira MD; Shaji Roman (more content not included)... Normal [facility] EGD Reporton 10-30-2024 EGD Report [facility] Medical Records Department [address] [place] [address] EGD Report MR#: [id number] Acct: [id number] Name: KARINA PIMENTEL Rep #: [id number] : 1965 59 From: Liu Carcamo DO PCP: Dr. Tereso Pereira MD Status:REG [facility] Patient Name: Karina Pimentel Procedure Date: 10/30/2024 10:27 AM Date of : 1965 Age: 59 Procedure: Upper GI endoscopy Indications: Follow-up of Reese's esophagus Providers: Liu Carcamo DO Referring MD: Tereso Pereira MD Medicines: Monitored Anesthesia Care Patient Profile: This is a 59 year old male. Refer to note in patient chart for documentation of history and physical. Patient has symptoms of chronic heartburn. Complications: No immediate complications. Procedure: Pre-Anesthesia Assessment: - Prior to the procedure, a History and Physical was performed, and patient medications and allergies were reviewed. The patient is competent. The risks and benefits of the procedure and the sedation options and risks were discussed with the patient. All questions were answered and informed consent was obtained. Patient identification and proposed procedure were verified by the physician in the pre-procedure area. Mental Status Examination: normal. Airway Examination: normal oropharyngeal airway and neck mobility. Respiratory Examination: clear to auscultation. CV Examination: normal. ASA Grade Assessment: II - A patient with mild systemic disease. After reviewing the risks and benefits, the patient was deemed in satisfactory condition to undergo the procedure. The anesthesia plan was to use moderate sedation / analgesia (conscious sedation). Immediately prior to administration of medications, the patient was re-assessed for adequacy to receive sedatives. The heart rate, respiratory rate, oxygen saturations, blood pressure, adequacy of pulmonary ventilation, and response to care were monitored throughout the procedure. The physical status of the patient was re-assessed after the procedure. After obtaining informed consent, the endoscope was passed under direct vision. Throughout the procedure, the patient's blood pressure, pulse, and oxygen saturations were monitored continuously. The Colonoscope was introduced through the mouth, and advanced to the third part of the duodenum. Small bowel enteroscopy was deemed necessary. The upper GI endoscopy was accomplished without difficulty. The patient tolerated the procedure well. Scope In: 10:36:37 AM Scope Out: 10:39:21 AM Total Procedure Duration Time 0 hours 2 minutes 44 seconds Findings: Ulceration was found at the vocal cords. There were esophageal mucosal changes secondary to established long-segment Reese's disease present in the lower third of the esophagus. The maximum longitudinal extent of these mucosal changes was 10 cm in length. Mucosa was biopsied with a cold forceps for histology in a targeted manner at intervals of 1 cm in the lower third of the esophagus. One specimen bottle was sent to pathology. Verification of patient identification for the specimen was done. Estimated blood loss was minimal. A medium-sized hiatal hernia was present. No other significant abnormalities were identified in a careful examination of the stomach. No gross lesions were noted in the first portion of the duodenum. Impression: - Ulceration was found at the vocal cords. - Esophageal mucosal changes secondary to established long-segment Reese's disease. Biopsied. - Medium-sized hiatal hernia. - No gross lesions in the first portion of the duodenum. Recommendation: - Discharge patient to home. - Resume previous diet. - Continue present medications. - Await pathology results. Procedure Code(s): --- Professional --- 44112, Small intestinal endoscopy, enteroscopy beyond second portion of duodenum, not including ileum; with biopsy, single or multiple CPT copyright 2021 [employer]. All rights reserved. The codes documented in this report are preliminary and upon tile setter apprentice review may be revised to meet current compliance requirements. Liu Carcamo DO 10/30/2024 11:04:49 AM This report has been signed electronically. Number of Addenda: 0 Note Initiated On: 10/30/2024 10:27 AM 10/30/24 1105 Date Liu Carcamo DO Cosigner Signature: Date (if indicated) CC: Dr. Tereso Pereira MD; Liu Carcamo, Date Dictated: 10/30/24 1027 Date Transcribed: Wet Finisher Wool: DEIDRA Signed [facility]dered By: Liu Carcamo on 10-30-2024 Bedside Glucose (Misc Panel) 250 mg/dL High 74-106 [facility] Comment on above: MANAGEMENT OF PATIEN T CARE PER NURSING PROTOCOL Glucose [Mass/Vol] 250 mg/dL High 74-106 [facility] Comment on above: MANAGEMENT OF PATIEN T CARE PER NURSING PROTOCOL MR/POSTOP.ANEon 10-30-2024 MR/POSTOP.[facility] Medical Records Department [address] [place] [address] Anesthesia Postop Eval I 10/30/241104 MR#: [id number] Acct: [id number] Name: KARINA PIMENTEL Shaji Rep #: [id number] : 1965 59 From: Donny Chen PCP: Dr. Tereso Pereira MD Status:REG SDC Y Race: C Location: [place] [address] Anesthesia: Postop Eval I Current Vital Signs Temperature: 98.4 F Pulse Rate: 62 Blood Pressure: 115/57 Respiratory Rate: 16 Pulse Ox: 93 Oxygen Delivery Method: Room Air Assessment Airway patent: Yes Spontaneous unlabored respirations: Yes Mental status: Awake and Calm nausea: No Vomiting: No Anesthesia Complication: No Fluid Hydration Crystalloid volume administer (ml): 60 Total IV fluid infused: 60 Progress Note Anesthesia document: Postop Eval 1 completed: Yes 10/30/241105 Date Donny Henao Signature: Date CC: Signed Normal [facility] MR/GHKATAZI3hc 10-30-2024 MR/POSTOPAN2 [facility] Medical Records Department [address] [place] [address] Anesthesia Postop Eval II 10/30/24 1130 MR#: [id number] Acct: [id number] Name: KARINA PIMENTEL Rep #: [id number] : 1965 59 From: Gunner Campbell MD PCP: Dr. Tereso Pereira MD Status:REG SDC Y Race: C Location: [facility]-1 Anesthesia Postop Eval I Sum Postop Eval Completion status Anesthesia document: Postop Eval 1 completed: Yes Anesthesia Postop Eval I Summary Anesthesia Postop Eval I Summary: Anesthesia Postop Eval I: Assessment Summary Airway patent Yes 10/30/24 11:06 [email or web address] Spontaneous unlabored Yes 10/30/24 11:06 [email or web address] respirations Mental status Awake,Calm 10/30/24 11:06 [email or web address] nausea No 10/30/24 11:06 [email or web address] Vomiting No 10/30/24 11:06 [email or web address] Anesthesia Postop Eval I: Fluid Summary Crystalloid volume administer 60 10/30/24 11:06 [email or web address] (ml) Colloids volume administered ( ml) Blood Product volume administered (ml) Total IV fluid infused 60 10/30/24 11:06 [email or web address] Anesthesia Postop Eval I: Summary Notes Anesthesia Complication No 10/30/24 11:06 [email or web address] Anesthesia Complication Comment: Post-operative progress note Anesthesia: Postop Eval II Evaluation Mental status: Awake Pain Level: 0 nausea: No Vomiting: No 10/30/24 1130 Date Gunner Campbell MD Cosigner Signature: Date CC: Signed Normal [facility] Surgery Specimen Level Yessy 10-30-2024 Surgery Specimen Level IV Patient Age/Sex Location Account Attending Physician KARINA PIMENTEL 59/M EN [id number] Liu Carcamo DO Specimen: [id number] Received: 10/30/24 Status: RADHA Brittany Num: [id number] Spec Type: COLON BX Subm Dr: Liu Carcamo DO HEADER OPERATION: Colonoscopy with biopsies and polypectomy, EGD with biopsy PRE-OP DIAGNOSIS: Reese's esophagus and diarrhea TISSUE SUBMITTED: A- Distal esophagus biopsy, B- Terminal ileum biopsy, C- Random colon biopsy, D- Hepatic flexure polyp biopsy, E- Sigmoid polyp MICROSCOPIC DIAGNOSIS A. Distal Esophagus, "Reese's Esophagus", Biopsy: - Reese mucosa negative for dysplasia. B. Small Bowel, Terminal Ileum, Biopsy: - Normal villous architecture with no specific pathologic change. C. Colon, Random, Biopsy: - No specific pathologic change. - The histologic features of microscopic colitis are not demonstrated. D. Colon, Hepatic Flexure, Polyp, Biopsy: - Tubular adenoma. E. Sigmoid Colon, Polyp, Biopsy: - Tubular adenoma. MICROSCOPIC DESCRIPTION Slides are reviewed. GROSS DESCRIPTION A. Received in formalin in a container labeled with the patient's name, date of , and distal esophagus biopsy are multiple hernandez-pink fragments of mucosal tissue measuring 0.7 x 0.7 x 0.3 cm in aggregate. Submitted in toto in A1. B. Received in formalin in a container labeled with the patient's name, date of , and terminal ileum biopsy are 3 hernandez-pink fragments of mucosal tissue ranging from 0.2 x 0.2 x 0.2 cm to 0.4 x 0.3 x 0.3 cm. Submitted in toto in B1. C. Received in formalin in a container labeled with the patient's name, date of , and "random colon biopsy" are multiple hernandez-pink fragments of mucosal tissue measuring 0.9 x 0.6 x 0.3 cm in aggregate. Submitted in toto in C1. D. Received in formalin in a container labeled with the patient's name, date of , and polyp at hepatic flexure biopsy" is a 0.4 x 0.3 x 0.3 cm fragment of hernandez-pink mucosal Patient Age/Sex Location Account Attending Physician KARINA PIMENTEL/M EN [id number] Liu Carcamo DO tissue. Submitted in toto in D1. E. Received in formalin in a container labeled with the patient's name, date of , and "sigmoid polyp" is a 0.5 x 0.4 x 0.3 cm fragment of hernandez-pink mucosal tissue. Submitted in toto in E1. SB 10/30/2024 CPT:58846c8 Patient Age/Sex Location Account Attending Physician KARINA PIMENTEL/M EN [id number] Liu Carcamo DO Signed (signature on file) Dr. Shala Healy MD 11/05/24 1446 Normal [facility] Comment on above: Performed By: #### L 501.080 #### [facility] [address] [place], [place], [id number] L7000.0750on 10-28-2024 P ELASTASE,FECA Normal [facility] Comment on above: Result Comment: TEST RESULTS LIMITS Pancreatic Elastase, Fecal >800 ug Elast./g >200 Severe Pancreatic Insufficiency: <100 Moderate Pancreatic Insufficiency: 100 - 200 Normal: >200 TESTING PERFORMED AT [facility]. ORIGINAL REPORT ON FILE IN LAB CONTAINS ADDITIONAL TEST SITE INFORMATION. Performed By: #### L 501.080 #### [facility] [address] [place], [place], [address] Calprotectin, Stoolon [address] 223 ug/g Abnormal 0-120 [facility] Comment on above: Result Comment: Conc entration Interpretation Follow-Up < 5 - 50 ug/g Normal None >50 -120 ug/g Borderline Re-evaluate in 4-6 weeks >120 ug/g Abnormal Repeat as clinically indicated Performed at: [address] [id number] Strainer Tender: Ana Sethi MD, Phone: [phone] Performed By: #### L 501.080 #### [facility] [place], [address] Calprotectin stoolOrdered By : Erika Culver on 10-22-2024 Calprotectin stool 223 ug/g High 0-120 [facility] Comment on above: Concentration Interp retation Follow-Up< 5 - 50 ug/g Normal None>50 -120 ug/g Borderline Re-evaluate in 4-6 weeks >120 ug/g Abnormal Repeat as clinically indicatedPerformed at: [address] [id number] Director: Ana Sethi MD, Phone: [phone] Stool Calprotectin 223 ug/g High 0-120 [facility] Comment on above: Concentration Interp retation Follow-Up< 5 - 50 ug/g Normal None>50 -120 ug/g Borderline Re-evaluate in 4-6 weeks >120 ug/g Abnormal Repeat as clinically indicatedPerformed at: [address] [id number] Director: Ana Sethi MD, Phone: [phone] Elastase.pancreatic (Stl) [M ass/Mass]Ordered By: Erika Culver on 10-22-2024 Stool Pancreatic Elastase See comment [facility] Comment on above: TEST RESULTS LIMITSP ancreatic Elastase, Fecal >800 ug Elast./g >200 Severe Pancreatic Insufficiency: <100 Moderate Pancreatic Insufficiency: 100 - 200 Normal: >200 [facility] ORIGINAL REPORT ON FILE IN LAB CONTAINS ADDITIONAL TEST SITE INFORMATION. Stool pancreatic elastase me asurement (mass/mass)Ordered By: Erika Culver on 10-22-2024 Elastase.pancreatic (Stl) [Mass/Mass] See comment [facility] Comment on above: TEST RESULTS LIMITSP ancreatic Elastase, Fecal >800 ug Elast./g >200 Severe Pancreatic Insufficiency: <100 Moderate Pancreatic Insufficiency: 100 - 200 Normal: >200 TESTING PERFORMED AT [facility]. ORIGINAL REPORT ON FILE IN LAB CONTAINS ADDITIONAL TEST SITE INFORMATION. ANCAon 10-21-2024 Atypical pANCA <1:20 Normal Neg:<1:20 [facility] Comment on above: Result Comment: The atypical pANCA pattern has been observed in a significant percentage of patients with ulcerative colitis, primary sclerosing cholangitis and autoimmune hepatitis. Performed at: [address] [id number] Strainer Tender: Syed Ruano PhD, Phone: [phone] Performed at: [address] [id number] Strainer Tender: Ana Sethi MD, Phone: [phone] Performed By: #### L 501.080 #### [facility] [address] [place], [address] Cytoplasmic Ab <1:20 Normal Neg:<1:20 [facility] Comment on above: Performed By: #### L 501.080 #### [facility] [address] [place], [address] Perinuclear Ab. <1:20 Normal Neg:<1:20 [facility] Comment on above: Result Comment: The presence of positive fluorescence exhibiting P-ANCA or C-ANCA patterns alone is not specific for the diagnosis of Magdalene's Granulomatosis (WG) or microscopic polyangiitis. Decisions about treatment should not be based solely on ANCA IFA results. The [employer] AN[employer] Consensus recommends follow up testing of positive sera with both OK- 3 and MPO-ANCA enzyme immunoassays. As many as 5% serum samples are positive only by EIA. Ref. AM J Clin Pathol 1999;111:507-513. Performed By: #### L 501.080 #### [facility] [address] [place], [address] Celiac Disease Profileon ENDOMYSIAL IGA Negative Normal Negative [facility] Comment on above: Performed By: #### L 501.080 #### [facility] [address] [place], [address] tTG IGA 3 U/mL Normal 0-3 [facility] Comment on above: Result Comment: Nega tive 0 - 3 Weak Positive 4 - 10 Positive >10 Tissue Transglutaminase (tTG) has been identified as the endomysial antigen. Studies have demonstr- ated that endomysial IgA antibodies have over 99% specificity for gluten sensitive enteropathy. Performed By: #### L 501.080 #### [facility] [address] [place], [address] Immunoglobulins G/A/M/Trell IMMUNOGLOB A QN 272 mg/dL Normal 61-437 [facility] Comment on above: Order Comment: N Performed By: #### L 501.080 #### [facility] [address] [place], [address] IMMUNOGLOB E QN 20 IU/mL Normal 6-495 [facility] Comment on above: Order Comment: N Performed By: #### L 501.080 #### [facility] [address] [place], [address] IMMUNOGLOB G QN 901 mg/dL Normal 603-1613 [facility] Comment on above: Order Comment: N Performed By: #### L 501.080 #### [facility] [address] [place], [address] IMMUNOGLOB M QN 197 mg/dL High 20-172 [facility] Comment on above: Order Comment: N Performed By: #### L 501.080 #### [facility] [address] [place], [address] L2100.0000on 10-21-2024 ACCA 21 units Normal 0-90 [facility] Comment on above: Result Comment: Nega tive: <80 Equivocal: 80-90 Positive: >90 Performed By: #### L 501.080 #### [facility] [address] [place], [address] ALCA 5 units Normal 0-60 [facility] Comment on above: Result Comment: Nega tive:<55 Equivocal: 55-60 Positive: >60 Performed By: #### L 501.080 #### [facility] [address] [place], [address] AMCA 25 units Normal 0-100 [facility] Comment on above: Result Comment: Nega tive: <90 Equivocal: 90-100 Positive: >100 This test was developed and its performance characteristics determined by [facility]. It has not been cleared or approved by the Food and Drug Administration. The FDA has determined that such clearance or approval is not necessary. Performed By: #### L 501.080 #### [facility] [address] [place], [address] Atypical pANCA Negative Normal Negative [facility] Comment on above: Performed By: #### L 501.080 #### [facility] [address] [place], [address] COMMENT Comment Normal . [facility] Comment on above: Result Comment: Sheila conrad is not suggestive of Inflammatory Bowel Disease Performed By: #### L 501.080 #### [facility] [address] [place], [address] Reuben 25 units Normal 0-50 [facility] Comment on above: Result Comment: Nega tive: <45 Equivocal: 45-50 Positive: >50 Performed By: #### L 501.080 #### [facility] [address] [place], [address] L5500.0550on 10-20-2024 BEEF <0.10 Normal Class 0 [facility] Comment on above: Performed By: #### L 501.080 #### [facility] [address] [place], [address] CHOCOLATE <0.10 Normal Class 0 [facility] Comment on above: Performed By: #### L 501.080 #### [facility] [address] [place], [address] CODFISH <0.10 Normal Class 0 [facility] Comment on above: Performed By: #### L 501.080 #### [facility] [address] [place], [address] COMMENT Comment Normal . [facility] Comment on above: Result Comment: Katelin [place] of Specific IgE Class Description of Class ----- < 0.10 0 Negative 0.10 - 0.31 0/I Equivocal/Low 0.32 - 0.55 I Low 0.56 - 1.40 II Moderate 1.41 - 3.90 III High 3.91 - 19.00 IV Very High 19.01 - 100.00 V Very High >100.00 Very High Performed By: #### L 501.080 #### [facility] [address] [place], [address] CORN <0.10 Normal Class 0 [facility] Comment on above: Performed By: #### L 501.080 #### [facility] [address] [place], [address] EGG, WHOLE <0.10 Normal Class 0 [facility] Comment on above: Result Comment: Perf ormed at: BN - [facility] [address] [id number] Strainer Tender: Ana Sethi MD, Phone: [phone] Performed By: #### L 501.080 #### [facility] [address] [place], [address] MILK (COW) <0.10 Normal Class 0 [facility] Comment on above: Performed By: #### L 501.080 #### [facility] [address] [place], [address] MUSSELS <0.10 Normal Class 0 [facility] Comment on above: Performed By: #### L 501.080 #### [facility] [address] [place], [address] PEANUT <0.10 Normal Class 0 [facility] Comment on above: Performed By: #### L 501.080 #### [facility] [address] [place], [address] PORK <0.10 Normal Class 0 [facility] Comment on above: Performed By: #### L 501.080 #### [facility] [address] [place], [address] SALMON <0.10 Normal Class 0 [facility] Comment on above: Performed By: #### L 501.080 #### [facility] [address] [place], [address] SHRIMP <0.10 Normal Class 0 [facility] Comment on above: Performed By: #### L 501.080 #### [facility] [address] [place] [address] SOYBEAN <0.10 Normal Class 0 [facility] Comment on above: Performed By: #### L 501.080 #### [facility] [address] [place] [address] TUNA <0.10 Normal Class 0 [facility] Comment on above: Performed By: #### L 501.080 #### [facility] [address] [place] [address] WHEAT <0.10 Normal Class 0 [facility] Comment on above: Performed By: #### L 501.080 #### [facility] [address] [place] [address] ASCA IgG abOrdered By: Casper Culver on 10-11-2024 Saccharomyces cerevisiae (Reuben)IgG 25 units 0-50 [facility] Comment on above: Negative: <45 Equivo easton: 45-50 Positive: >50 Absolute lymphocyte countOrd ered By: Erika Culver on 10-11-2024 Lymphocytes Auto (Unsp spec) [#/Vol] 2.37 10*3/uL 0.83-4.51 [facility] Absolute neutrophil countOrd ered By: Erika Culver on 10-11-2024 Neutrophils (Bld) [#/Vol] 4.4 10*3/uL 2.0-7.7 [facility] Anion gap in Serum or Plasma Ordered By: Erika Culver on 10-11-2024 Anion gap [Moles/Vol] 14 mmol/L 5-15 [facility] Atypical perinuclear antineu trophil cytoplasmic antibodies measurementOrdered By: Erika Culver on 10-11-2024 Atypical p-ANCA <1:20 titer Neg:<1:20 [facility] Comment on above: *Additional results available. Contact laboratory/see report*The atypical pANCA pattern has been observed in asignificant percentage of patients with ulcerative colitis,primary sclerosing cholangitis and autoimmune hepatitis.Performed at: - [facility] [id number] [place], [place] [id number] Director: Syed Ruano PhD, Phone: [phone] at: - [facility] [id number] Director: Ana Sethi MD, Phone: [phone] Automated lymphocyte count a s percentage of total leukocytesOrdered By: Erika Culver on 10-11-2024 Lymphocytes/100 WBC Auto (Unsp spec) 30.6 % - [facility] BUN/creatinine ratioOrdered By: Erika Culver on 10-11-2024 Urea nitrogen/Creatinine [Mass ratio] 17.3 mg/mg 10- [facility] Basophil percentageOrdered B y: Erika Culver on 10-11-2024 Basophils/100 WBC (Bld) 1.2 % High 0-1 [facility] Beef IgE Qn (S)Ordered By: Ivy Culver on 10-11-2024 Beef Allergen (RAST) <0.10 kU/L Class 0 [facility] Bilirubin, totalOrdered By: Erika Culver on 10-11-2024 Bilirubin [Mass/Vol] 0.30 mg/dL 0.00-1.30 [facility] CBC W/Diff, Automatedon 09-28 Absolute Lymph 2.37 X10 3/uL Normal 0.83-4.51 [facility] Comment on above: Performed By: #### L 501.6710, L2100.0000, L3410.2400, L500.4050, L100.0100, L3300.1200, L3200.1100, L5500.0550, L501.9520 #### [facility] [address] [place], [address] Absolute Neut 4.4 X10 3/uL Normal 2.0-7.7 [facility] Comment on above: Performed By: #### L 501.6710, L2100.0000, L3410.2400, L500.4050, L100.0100, L3300.1200, L3200.1100, L5500.0550, L501.9520 #### [facility] [address] [place], [address] Basophils/100 WBC (Bld) 1.2 % High 0-1 [facility] Comment on above: Performed By: #### L 501.6710, L2100.0000, L3410.2400, L500.4050, L100.0100, L3300.1200, L3200.1100, L5500.0550, L501.9520 #### [facility] [address] [place], [address] Eosinophils/100 WBC (Bld) 1.9 % Normal 0-5 [facility] Comment on above: Performed By: #### L 501.6710, L2100.0000, L3410.2400, L500.4050, L100.0100, L3300.1200, L3200.1100, L5500.0550, L501.9520 #### [facility] [address] [place], [address] Erythrocyte distribution width (RBC) [Ratio] 12.2 % Normal 11.6-14.6 [facility] Comment on above: Performed By: #### L 501.6710, L2100.0000, L3410.2400, L500.4050, L100.0100, L3300.1200, L3200.1100, L5500.0550, L501.9520 #### [facility] [address] [place], [address] Hematocrit (Bld) [Volume fraction] 45.3 % Normal 40-54 [facility] Comment on above: Performed By: #### L 501.6710, L2100.0000, L3410.2400, L500.4050, L100.0100, L3300.1200, L3200.1100, L5500.0550, L501.9520 #### [facility] [address] [place], [address] Hemoglobin (Bld) [Mass/Vol] 15.2 g/dL Normal 13.0-16.5 [facility] Comment on above: Performed By: #### L 501.6710, L2100.0000, L3410.2400, L500.4050, L100.0100, L3300.1200, L3200.1100, L5500.0550, L501.9520 #### [facility] [address] [place], [address] IG% 1.000 High 0.0-0.9 [facility] Comment on above: Result Comment: IG% - Immature Granulocytes (promyelocytes, myelocytes and metamyelocytes) > 1% indicates that a LEFT SHIFT is Present. Performed By: #### L 501.6710, L2100.0000, L3410.2400, L500.4050, L100.0100, L3300.1200, L3200.1100, L5500.0550, L501.9520 #### [facility] [address] [place], [address] Lymphocytes/100 WBC (Bld) 30.6 % Normal 19-41 [facility] Comment on above: Performed By: #### L 501.6710, L2100.0000, L3410.2400, L500.4050, L100.0100, L3300.1200, L3200.1100, L5500.0550, L501.9520 #### [facility] [address] [place], [address] MCH (RBC) [Entitic mass] 31.1 pg Normal 27.0-32.0 [facility] Comment on above: Performed By: #### L 501.6710, L2100.0000, L3410.2400, L500.4050, L100.0100, L3300.1200, L3200.1100, L5500.0550, L501.9520 #### [facility] [address] [place], [address] MCHC (RBC) [Mass/Vol] 33.6 g/dL Normal 32-36 [facility] Comment on above: Performed By: #### L 501.6710, L2100.0000, L3410.2400, L500.4050, L100.0100, L3300.1200, L3200.1100, L5500.0550, L501.9520 #### [facility] [address] [place], [address] MCV (RBC) [Entitic vol] 92.8 fL Normal 80-94 [facility] Comment on above: Performed By: #### L 501.6710, L2100.0000, L3410.2400, L500.4050, L100.0100, L3300.1200, L3200.1100, L5500.0550, L501.9520 #### [facility] [address] [place], [address] Monocytes/100 WBC (Bld) 8.4 % Normal 0-10 [facility] Comment on above: Performed By: #### L 501.6710, L2100.0000, L3410.2400, L500.4050, L100.0100, L3300.1200, L3200.1100, L5500.0550, L501.9520 #### [facility] [address] [place], [address] Neutrophils/100 WBC (Bld) 56.9 % Normal 47-70 [facility] Comment on above: Performed By: #### L 501.6710, L2100.0000, L3410.2400, L500.4050, L100.0100, L3300.1200, L3200.1100, L5500.0550, L501.9520 #### [facility] [address] [place], [address] Nucleated RBC (Bld) [#/Vol] 0 10*3/uL Normal 0-5 [facility] Comment on above: Performed By: #### L 501.6710, L2100.0000, L3410.2400, L500.4050, L100.0100, L3300.1200, L3200.1100, L5500.0550, L501.9520 #### [facility] [address] [place], [address] ( Platelet mean volume (Bld) [Entitic vol] 10.9 fL Normal 6.2-12.0 [facility] Comment on above: Performed By: #### L 501.6710, L2100.0000, L3410.2400, L500.4050, L100.0100, L3300.1200, L3200.1100, L5500.0550, L501.9520 #### [facility] [address] [place], [address] (672) Platelets (Bld) [#/Vol] 282 10*3/uL Normal 150-450 [facility] Comment on above: Performed By: #### L 501.6710, L2100.0000, L3410.2400, L500.4050, L100.0100, L3300.1200, L3200.1100, L5500.0550, L501.9520 #### [facility] [address] [address] [place], [address] (880) RBC (Bld) [#/Vol] 4.88 10*6/uL Normal 4.6-6.2 [facility] Comment on above: Performed By: #### L 501.6710, L2100.0000, L3410.2400, L500.4050, L100.0100, L3300.1200, L3200.1100, L5500.0550, [id number] #### [facility] [address] [place], [address] (042 RDW SD 41.7 fl Normal 35.1-43.9 [facility] Comment on above: Performed By: #### L 501.6710, L2100.0000, L3410.2400, L500.4050, L100.0100, L3300.1200, L3200.1100, L5500.0550, [id number] #### [facility] [address] [facility] [place], [address] WBC (Bld) [#/Vol] 7.7 10*3/uL Normal 4.4-11.0 [facility] Comment on above: Performed By: #### L 501.6710, L2100.0000, L3410.2400, L500.4050, L100.0100, L3300.1200, L3200.1100, L5500.0550, L501.9520 #### [facility] [address] [facility] [place], [address] CRPon 10-11-2024 C-REACTIVE PROT 4.44 mg/L High 0.0-3.0 [facility] Comment on above: Performed By: #### L 501.6710, L2100.0000, L3410.2400, L500.4050, L100.0100, L3300.1200, L3200.1100, L5500.0550, L501.9520 #### [facility] [address] [facility] [place], [place], [id number] CRP [Mass/Vol]Ordered By: Marcus Culver on 10-11-2024 C-Reactive Protein Extended Range 4.44 mg/L High 0.0-3.0 [facility] Carbon dioxide, total [Moles /volume] in Central venous bloodOrdered By: Erika Culver on 10-11-2024 CO2 [Moles/Vol] 23.5 mmol/L 21.0-32.0 [facility] Chitobioside IgA IA QnOrdere d By: Erika Culver on 10-11-2024 Chitobioside Carbohydrat (ACCA) IgA 21 units 0- [facility] Comment on above: Negative: <80 Equivo easton: 80-90 Positive: >90 Chitobioside IgA antibody as sayOrdered By: Erika Culver on 10-11-2024 Chitobioside IgA IA Qn 21 units 0-90 [facility] Comment on above: Negative: <80 Equivo easton: 80-90 Positive: >90 Chloride assayOrdered By: Marcus Culver on 10-11-2024 Chloride [Moles/Vol] 101 mmol/L 98-108 [facility] Chocolate IgE serumOrdered B y: Erika Culver on 10-11-2024 Chocolate Allergen (RAST) <0.10 kU/L Class 0 [facility] Codfish IgE Qn (S)Ordered By : Erika Culver on 10-11-2024 Codfish Allergen (RAST) <0.10 kU/L Class 0 [facility] Comprehensive Metabolic Prof ilon 10-11-2024 Albumin [Mass/Vol] 4.5 g/dL Normal 3.4-4.8 [facility] Comment on above: Performed By: #### L 501.6710, L2100.0000, L3410.2400, L500.4050, L100.0100, L3300.1200, L3200.1100, L5500.0550, L501.9520 #### [facility] [address] [place], [place], [id number] Albumin/Globulin [Mass ratio] 1.5 {ratio} Normal 0.9-2.4 [facility] Comment on above: Performed By: #### L 501.6710, L2100.0000, L3410.2400, L500.4050, L100.0100, L3300.1200, L3200.1100, L5500.0550, L501.9520 #### [facility] [address] [place], [place], [id number] ALK PHOS 124 U/L Normal 40-129 [facility] Comment on above: Performed By: #### L 501.6710, L2100.0000, L3410.2400, L500.4050, L100.0100, L3300.1200, L3200.1100, L5500.0550, L501.9520 #### [facility] [address] [place], [address] ALT [Catalytic activity/Vol] 254 U/L High <=46 [facility] Comment on above: Performed By: #### L 501.6710, L2100.0000, L3410.2400, L500.4050, L100.0100, L3300.1200, L3200.1100, L5500.0550, L501.9520 #### [facility] [address] [place], [address] AST [Catalytic activity/Vol] 158 U/L High <=37 [facility] Comment on above: Performed By: #### L 501.6710, L2100.0000, L3410.2400, L500.4050, L100.0100, L3300.1200, L3200.1100, L5500.0550, L501.9520 #### [facility] [address] [place], [address] Bilirubin [Mass/Vol] 0.30 mg/dL Normal 0.00-1.30 [facility] Comment on above: Performed By: #### L 501.6710, L2100.0000, L3410.2400, L500.4050, L100.0100, L3300.1200, L3200.1100, L5500.0550, L501.9520 #### [facility] [address] [place], [address] BUN/CRE 17.3 RATIO Normal 10-20 [facility] Comment on above: Performed By: #### L 501.6710, L2100.0000, L3410.2400, L500.4050, L100.0100, L3300.1200, L3200.1100, L5500.0550, L501.9520 #### [facility] [address] [place], [address] Calcium [Mass/Vol] 9.7 mg/dL Normal 7.6-11.0 [facility] Comment on above: Performed By: #### L 501.6710, L2100.0000, L3410.2400, L500.4050, L100.0100, L3300.1200, L3200.1100, L5500.0550, L501.9520 #### [facility] [address] [place], [address] Chloride [Moles/Vol] 101 mmol/L Normal 98-108 [facility] Comment on above: Performed By: #### L 501.6710, L2100.0000, L3410.2400, L500.4050, L100.0100, L3300.1200, L3200.1100, L5500.0550, L501.9520 #### [facility] [address] [place], [address] CO2 [Moles/Vol] 23.5 mmol/L Normal 21.0-32.0 [facility] Comment on above: Performed By: #### L 501.6710, L2100.0000, L3410.2400, L500.4050, L100.0100, L3300.1200, L3200.1100, L5500.0550, L501.9520 #### [facility] [address] [place], [address] Creatinine [Mass/Vol] 0.71 mg/dL Normal 0.70-1.20 [facility] Comment on above: Performed By: #### L 501.6710, L2100.0000, L3410.2400, L500.4050, L100.0100, L3300.1200, L3200.1100, L5500.0550, L501.9520 #### [facility] [address] [place], [address] GAP 14 Normal 5-15 [facility] Comment on above: Performed By: #### L 501.6710, L2100.0000, L3410.2400, L500.4050, L100.0100, L3300.1200, L3200.1100, L5500.0550, L501.9520 #### [facility] [address] [place], [address] GFR/1.73 sq M.predicted among non-blacks MDRD (S/P/Bld) [Vol rate/Area] 105 mL/min/{1.73_m2} Normal >60 [facility] Comment on above: Result Comment: mL/m in/1.73m2 CKD-EPI Creatinine Equation (2020) Performed By: #### L 501.6710, L2100.0000, L3410.2400, L500.4050, L100.0100, L3300.1200, L3200.1100, L5500.0550, L501.9520 #### [facility] [address] [place], [address] Globulin (S) [Mass/Vol] 3.1 g/dL Normal 2.2-4.2 [facility] Comment on above: Performed By: #### L 501.6710, L2100.0000, L3410.2400, L500.4050, L100.0100, L3300.1200, L3200.1100, L5500.0550, L501.9520 #### [facility] [address] [place], [address] Glucose [Mass/Vol] 176 mg/dL High 70-99 [facility] Comment on above: Performed By: #### L 501.6710, L2100.0000, L3410.2400, L500.4050, L100.0100, L3300.1200, L3200.1100, L5500.0550, L501.9520 #### [facility] [address] [place], [address] Potassium [Moles/Vol] 4.0 mmol/L Normal 3.3-5.1 [facility] Comment on above: Performed By: #### L 501.6710, L2100.0000, L3410.2400, L500.4050, L100.0100, L3300.1200, L3200.1100, L5500.0550, L501.9520 #### [facility] [address] [place], [address] Sodium [Moles/Vol] 139 mmol/L Normal 133-145 [facility] Comment on above: Performed By: #### L 501.6710, L2100.0000, L3410.2400, L500.4050, L100.0100, L3300.1200, L3200.1100, L5500.0550, L501.9520 #### [facility] [address] [place], [address] T PROT 7.6 g/dL Normal 5.9-8.4 [facility] Comment on above: Performed By: #### L 501.6710, L2100.0000, L3410.2400, L500.4050, L100.0100, L3300.1200, L3200.1100, L5500.0550, L501.9520 #### [facility] [address] [place], [place], [phone] Urea nitrogen [Mass/Vol] 12 mg/dL Normal 4-19 [facility] Comment on above: Performed By: #### L 501.6710, L2100.0000, L3410.2400, L500.4050, L100.0100, L3300.1200, L3200.1100, L5500.0550, L501.9520 #### [facility] [address] [place], [place], [id number] Rawlins IgE Qn (S)Ordered By: Ivy Culver on 10-11-2024 Rawlins Allergen (RAST) <0.10 kU/L Class 0 [facility] Cow milk IgE Qn (S)Ordered B y: Erika Culver on 10-11-2024 Cow's Milk Allergen <0.10 kU/L Class 0 [facility] Endomysial IgA antibody assa yOrdered By: Erika Culver on 10-11-2024 Endomysial IgA Antibody Negative Negative [facility] Eosinophil percentageOrdered By: Erika Culver on 10-11-2024 Eosinophils/100 WBC (Bld) 1.9 % 0-5 [facility] Erythrocyte distribution wid th ratioOrdered By: Erika Culver on 10-11-2024 Erythrocyte distribution width (RBC) [Ratio] 12.2 % 11.6-14.6 [facility] Erythrocyte distribution wid th standard deviationOrdered By: Erika Culver on 10-11-2024 Erythrocyte distribution width (RBC) [Entitic vol] 41.7 fL 35.1-43.9 [facility] Erythrocyte distribution width (RBC) [Ratio] 41.7 fl 35.1-43.9 [facility] GFR/1.73 sq M.predicted lamine g non-blacks MDRD (S/P/Bld) [Vol rate/Area]Ordered By: Erika Culver on 10-11-2024 Estimated GFR (MDRD) Non-Af Amer 105 >60 [facility] Comment on above: mL/min/1.73m2 CKD-EP I Creatinine Equation (2020) Gastroenterology Visit Repor ton 10-11-2024 Gastroenterology Visit Report [facility] [address] [place] [address] OFFICE VISIT Date of Service: 10/11/24 MR#: [id number] Acct: [id number] Name: KARINA PIMENTEL Rep #: [id number] : 1965 Provider: PRECIOUS burkett Age/Sex: 59/M Location[place] [facility] [place] Status: Signed Intake Vital Signs 10/20/23 11:52 Height 5 ft 2 in Intake Visit Reasons: Pre EGD Chief Complaint: Need to schedule EGD for LSBE FU Allergies No Known Allergies Allergy (Verified 10/11/24 10:08) Medications ???Medication ???Instructions ???Recorded ???Confirmed ???Type atorvastatin 10 mg tablet 10 mg PO DAILY 08/31/16 10/11/24 H istory tizanidine 2 mg tablet 4 mg PO BID PRN Pain 08/31/1609/28 History naproxen sodium 220 mg tablet 220 mg PO BID PRN Pain 09/04/18 History (Aleve) empagliflozin 25 mg tablet 25 mg PO DAILY 04/15/21 10/11/24 H istory (Jardiance) famotidine 40 mg tablet 40 mg PO DAILY 04/15/21 10/11/24 H istory metformin 500 mg tablet 500 mg PO DAILY 04/15/21 10/11/24 History morphine 250 mg/25 mL in 0.9 % 10 mg CONT 04/15/21 10/11/24 Histo ry sodium chloride 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 syringe pregabalin 100 mg capsule 100 mg PO TID 04/15/21 10/11/24 Hi story biotin 10,000 mcg capsule 10,000 mcg PO DAILY 10/19/2310/11 History dulaglutide 3 mg/0.5 mL 3 mg subcut FR DIABETES 10/19/23 0 10/11/24 History subcutaneous pen injector (Trulicity) glimepiride 4 mg tablet 4 mg PO BID 10/19/23 10/11/24 Hist ory loratadine 10 mg capsule (Allergy 10 mg PO QDAY 10/11/24 10/11/24 H istory Relief (loratadine)) meloxicam 7.5 mg tablet 7.5 mg PO QDAY 10/11/24 10/11/24 H istory pantoprazole 40 mg tablet,delayed 40 mg PO QDAY 10/11/24 10/11/24 H istory release sucralfate 1 gram tablet 1 g PO QAC 10/11/24 10/11/24 Histo ry [facility] Medical History Arthritis Carpal tunnel syndrome of right wrist Complete edentulism, class III Marijuana use Ambulates with cane Anemia Fatty liver Injury of back Back pain Injury of head and neck Difficulty swallowing History of hiatal hernia Dietary restriction Gastric reflux Former smoker Shortness of breath on exertion Leg cramps History of pain when walking History of edema History of stress test GERD (gastroesophageal reflux disease) Kidney stones High cholesterol NHL (non-Hodgkin's lymphoma) Chronic pain disorder pain pump trial Medical management Diabetes Osteoarthritis Chronic pain Overweight (BMI 25.0-29.9) Failed total left knee replacement Surgical History History of carpal tunnel release History of esophagogastroduodenoscop y (EGD) Hx of arthroscopy of knee History of open reduction and internal fixation (ORIF) procedure Status post left foot surgery s/p pain pump History of surgical biopsy Total knee replacement status Family History Mother Cancer Father Diabetes Heart disease CVA (cerebral vascular accident) Social History Smoking Status: Former smoker Tobacco: How many years used: 20 Electronic Cigarette Use: not used how long ago did patient quit smoking: about 15 years ago alcohol intake: never substance use type: marijuana and other details: Uses edibles or CBC occationally for pain HPI HPI Chief Complaint: Need to schedule EGD for LSBE FU Details: KARINA PIMENTEL, is a 59 M who presents to the office today for establishment with [facility] for pre-EGD scheduling. PMHx: DMII, laminectomy, intrathecal pump-last filled 09/2023-due to be filled 10/17/24, LSBE(7cm)-last EGD 09/18(recommended repeat in 2yrs), esophageal cancer, former smoker. He reports heartburn despite pantoprazole and famotidine, frequent nausea. He states that he has difficulty chewing due to having no teeth and therefore has a little bit of difficulty with swallowing; must break large pills in half to take. He notes an increase in flatus and has had lower diffuse abdominal cramping relieved with a BM. States that his stools have changed to loose and occasionally watery daily. He denies vomiting, abdominal bloating, hematochezia, and melena. ROS Const Constitutional: Positive for fatigue; No fever(s) or weight change Eyes Eyes: No blurry vision or change in vision ENT ENT: Positive for difficulty swallowing; No abnormal hearing Resp Respiratory: No cough Cardio Cardiology: No chest pain at rest, chest pain with exertion or leg pain with exertion Gastro GI: Positive for belching, change in bowel habits, diarrhea, difficulty swallowing and nausea/dyspepsia; No abdominal pain, bloating, change in stool character, coffee ground emesi (more content not included)... Normal [facility] Glomerular filtration rate ( GFR) estimation/1.73 sq m using serum, plasma, or whole bOrdered By: Erika Culver on 10-11-2024 GFR/1.73 sq M.predicted among non-blacks MDRD (S/P/Bld) [Vol rate/Area] 105 mL/min/{1.73_m2} >60 [facility] Comment on above: mL/min/1.73m2 CKD-EP I Creatinine Equation (2020) Hematocrit Auto (Bld) [Volum e fraction]Ordered By: Erika Culver on 10-11-2024 Hematocrit (Bld) [Volume fraction] 45.3 % 40-54 [facility] Hemoglobin measurementOrdere d By: Erika Culver on 10-11-2024 Hemoglobin (Bld) [Mass/Vol] 15.2 g/dL 13.0-16.5 [facility] IgA [Mass/Vol]Ordered By: Marcus Culver on 10-11-2024 Immunoglobulin A 272 mg/dL 61-437 [facility] IgEOrdered By: Erika Culver on 10-11-2024 IgE 20 IU/mL 6-495 [facility] Immunoglobulin E 20 IU/mL 6-495 [facility] IgG [Mass/Vol]Ordered By: Marcus Culver on 10-11-2024 Immunoglobulin G 901 mg/dL [phone] [facility] Immature granulocytes/100 WB C Auto (Bld)Ordered By: Erika Culver on 10-11-2024 Immature granulocytes/100 WBC (Bld) 1.000 % High 0.0-0.9 [facility] Comment on above: IG% - Immature Granu locytes (promyelocytes, myelocytes and metamyelocytes) > 1% indicates that a LEFT SHIFT is Present. Immunoglobulin M measurement Ordered By: Erika Culver on 10-11-2024 Immunoglobulin M 197 mg/dL High 20-172 [facility] - Chemistry and C hemistry - challengeOrdered By: Erika Culver on 10-11-2024 AST [Catalytic activity/Vol] 158 U/L High <38 [facility] - Miscellaneous t estsOrdered By: Erika Culver on 10-11-2024 Laboratory comment Geovanny (Report) Comment . [facility] Comment on above: Pattern is not sugge stive of Inflammatory Bowel Disease Service comment (Unsp spec) [Interp] Comment . [facility] Comment on above: Levels of Specific I gE Class Description of Class ----- < 0.10 0 Negative 0.10 - 0.31 0/I Equivocal/Low 0.32 - 0.55 I Low 0.56 - 1.40 II Moderate 1.41 - 3.90 III High 3.91 - 19.00 IV Very High 19.01 - 100.00 V Very High >100.00 Very High Laboratory comment Geovanny (Repo rt)Ordered By: Erika Culver on 10-11-2024 IBD Serology Comment Comment . [facility] Comment on above: Pattern is not sugge stive of Inflammatory Bowel Disease Laminaribioside IgG IA QnOrd ered By: Erika Culver on 10-11-2024 Laminaribioside Carbohyd (ALCA) IgG 5 units 0-60 [facility] Comment on above: Negative:<55 Equivoc al: 55-60 Positive: >60 Laminaribioside carbohydrate IgG antibody assayOrdered By: Erika Culver on 10-11-2024 Laminaribioside IgG IA Qn 5 units 0-60 [facility] Comment on above: Negative:<55 Equivoc al: 55-60 Positive: >60 Lymphocytes Auto (Unsp spec) [#/Vol]Ordered By: Erika Culver on 10-11-2024 Lymphocytes (Bld) [#/Vol] 2.37 10*3/uL 0.83-4.5 1 [facility] Lymphocytes/100 WBC Auto (Un sp spec)Ordered By: Erika Culver on 10-11-2024 Lymphocytes/100 WBC (Bld) 30.6 % 19-41 [facility] MCV (mean corpuscular volume ) determinationOrdered By: Erika Culver on 10-11-2024 MCV (RBC) [Entitic vol] 92.8 fL 80-94 [facility] Mannobioside IgG IA QnOrdere d By: Erika Culver on 10-11-2024 Mannobioside Carbohydrat (AMCA) IgG 25 units 0-100 [facility] Comment on above: Negative: <90 Equivo easton: 90-100 Positive: >100 This test was developed and its performance characteristics determined by [facility]. It has not been cleared or approved by the Food and Drug Administration. The FDA has determined that such clearance or approval is not necessary. Mean corpuscular hemoglobin (MCH) determinationOrdered By: Erika Culver on 10-11-2024 MCH (RBC) [Entitic mass] 31.1 pg 27.0-32.0 [facility] Mean corpuscular hemoglobin concentration (MCHC) determinationOrdered By: Erikaher Culver on 10-11-2024 MCHC (RBC) [Mass/Vol] 33.6 g/dL 32-36 [facility] Mean platelet volume determi nationOrdered By: Erika Culver on 10-11-2024 Platelet mean volume (Bld) [Entitic vol] 10.9 fL 6.2-12.0 [facility] Monocyte percentageOrdered B y: Erika Culver on 10-11-2024 Monocytes/100 WBC (Bld) 8.4 % 0-10 [facility] Neutrophil cytoplasmic Ab.cl assic Qn (S)Ordered By: Erikaher Culver on 10-11-2024 Cytoplasmic ANCA (c-ANCA) Antibody <1:20 titer Neg:<1:20 [facility] Neutrophil cytoplasmic Ab.pe rinuclear IF (S) [Titer]Ordered By: Erika Culver on 10-11-2024 Perinuclear ANCA (p-ANCA) Antibody <1:20 titer Neg:<1:20 [facility] Comment on above: The presence of posi tive fluorescence exhibiting P-ANCA orC-ANCA patterns alone is not specific for the diagnosis ofWegener's Granulomatosis (WG) or microscopic polyangiitis.Decisions about treatment should not be based solely onANCA IFA results. The [employer] ANCA [employer] Consensusrecommends follow up testing of positive sera with both OK-3 and MPO-ANCA enzyme immunoassays. As many as 5% serumsamples are positive only by EIA. Ref. AM J Clin Moxkky5404;111:507-513. Neutrophil percentageOrdered By: Erika Culver on 10-11-2024 Neutrophils/100 WBC (Bld) 56.9 % 47-70 [facility] Nucleated red blood cell per centageOrdered By: Erikaher Culver on 10-11-2024 Nucleated RBC/100 WBC (Bld) [Ratio] 0 % 0-5 [facility] Peanut IgE Qn (S)Ordered By: Erikaher Culver on 10-11-2024 Peanut Allergen (RAST) <0.10 kU/L Class 0 [facility] Platelet countOrdered By: Marcus rudy Culver on 10-11-2024 Platelets (Bld) [#/Vol] 282 10*3/uL 150-450 [facility] Pork IgE Qn (S)Ordered By: Ivy Culver on 10-11-2024 Pork Allergen (RAST) <0.10 kU/L Class 0 [facility] Potassium (Unsp spec) [Mass/ Vol]Ordered By: Erika Culver on 10-11-2024 Potassium [Moles/Vol] 4.0 mmol/L 3.3-5.1 [facility] Potassium measurement (mass/ volume)Ordered By: Erika Culver on 10-11-2024 Potassium (Unsp spec) [Mass/Vol] 4.0 mmol/L 3.3-5.1 [facility] RBC Auto (Bld) [#/Vol]Ordere d By: Erika Culver on 10-11-2024 RBC (Bld) [#/Vol] 4.88 10*6/uL 4.6-6.2 [facility] [place] IgE Qn (S)Ordered By: Erika Culver on 10-11-2024 [place] Allergen IgE Antibody <0.10 kU/L Class 0 [facility] Serum beef IgE antibody assa y (units/volume)Ordered By: Erika Culver on 10-11-2024 Beef IgE Qn (S) <0.10 kU/L Class 0 [facility] Serum classic neutrophil cyt oplasmic antibody assay (units/volume)Ordered By: Erika Culver on 10-11-2024 Neutrophil cytoplasmic Ab.classic Qn (S) <1:20 titer Neg:<1:20 [facility] Serum codfish IgE antibody a ssay (units/volume)Ordered By: Erika Culver on 10-11-2024 Codfish IgE Qn (S) <0.10 kU/L Class 0 [facility] Serum corn IgE antibody assa y (units/volume)Ordered By: Erika Culver on 10-11-2024 [place] IgE Qn (S) <0.10 kU/L Class 0 [facility] Serum cow milk IgE antibody assay (units/volume)Ordered By: Erika Culver on 10-11-2024 Cow milk IgE Qn (S) <0.10 kU/L Class 0 [facility] Serum creatinine measurement (mass/volume)Ordered By: Erika Culver on 10-11-2024 Creatinine [Mass/Vol] 0.71 mg/dL 0.70-1.20 [facility] Serum globulin measurementOr dered By: Erika Culver on 10-11-2024 Globulin (S) [Mass/Vol] 3.1 g/dL 2.2-4.2 [facility] Serum glucose measurement (m ass/volume)Ordered By: Erika Culver on 10-11-2024 Glucose [Mass/Vol] 176 mg/dL High 70-99 [facility] Serum mussel specific IgE an tibody assayOrdered By: Erika Culver on 10-11-2024 Mussel Allergen IgE Antibody <0.10 kU/L Class 0 [facility] Serum or plasma C reactive p rotein measurement (mass/volume)Ordered By: Erika Culver on 10-11-2024 CRP [Mass/Vol] 4.44 mg/L High 0.0-3.0 [facility] Serum or plasma IgA measurem ent (mass/volume)Ordered By: Erika Culver on 10-11-2024 IgA [Mass/Vol] 272 mg/dL 61-437 [facility] Serum or plasma IgG measurem ent (mass/volume)Ordered By: Erika Culver on 10-11-2024 IgG [Mass/Vol] 901 mg/dL 603-1613 [facility] Serum or plasma alanine mccullough otransferase (ALT) measurementOrdered By: Erika Culver on 10-11-2024 ALT [Catalytic activity/Vol] 254 U/L High <47 [facility] Serum or plasma albumin karyn urement (mass/volume)Ordered By: Erika Culver on 10-11-2024 Albumin [Mass/Vol] 4.5 g/dL 3.4-4.8 [facility] Serum or plasma albumin/glob ulin mass ratioOrdered By: Erika Culver on 10-11-2024 Albumin/Globulin [Mass ratio] 1.5 {ratio} 0.9-2.4 [facility] Serum or plasma alkaline eddie sphatase measurementOrdered By: Erika Culver on 10-11-2024 ALP [Catalytic activity/Vol] 124 U/L 40-129 [facility] Serum or plasma calcium karyn urement (mass/volume)Ordered By: Erika Culver on 10-11-2024 Calcium [Mass/Vol] 9.7 mg/dL 7.6-11.0 [facility] Serum or plasma mannobioside IgG antibody assay by immunoassay (units/volume)Ordered By: Erika Culver on 10-11-2024 Mannobioside IgG IA Qn 25 units 0-100 [facility] Comment on above: Negative: <90 Equivo easton: 90-100 Positive: >100 This test was developed and its performance characteristics determined by [facility]. It has not been cleared or approved by the Food and Drug Administration. The FDA has determined that such clearance or approval is not necessary. Serum or plasma urea nitroge n measurement (mass/volume)Ordered By: Erika Culver on 10-11-2024 Urea nitrogen [Mass/Vol] 12 mg/dL 4-19 [facility] Serum peanut IgE antibody as say (units/volume)Ordered By: Erika Culver on 10-11-2024 Peanut IgE Qn (S) <0.10 kU/L Class 0 [facility] Serum perinuclear neutrophil cytoplasmic antibody titer by immunofluorescenceOrdered By: Erika Culver on 10-11-2024 Neutrophil cytoplasmic Ab.perinuclear IF (S) [Titer] <1:20 titer Neg:<1:20 [facility] Comment on above: The presence of posi tive fluorescence exhibiting P-ANCA orC-ANCA patterns alone is not specific for the diagnosis ofWegener's Granulomatosis (WG) or microscopic polyangiitis.Decisions about treatment should not be based solely onANCA IFA results. The [employer] Consensusrecommends follow up testing of positive sera with both OK-3 and MPO-ANCA enzyme immunoassays. As many as 5% serumsamples are positive only by EIA. Ref. AM J Clin [id number];111:507-513. Serum pork IgE antibody assa y (units/volume)Ordered By: Erika Culver on 10-11-2024 Pork IgE Qn (S) <0.10 kU/L Class 0 [facility] Serum salmon IgE antibody as say (units/volume)Ordered By: Erika Culver on 10-11-2024 [place] IgE Qn (S) <0.10 kU/L Class 0 [facility] Serum shrimp specific IgE an tibody assayOrdered By: Erika Culver on 10-11-2024 Shrimp Allergen <0.10 kU/L Class 0 [facility] Serum soybean IgE antibody a ssay (units/volume)Ordered By: Erika Culver on 10-11-2024 Soybean IgE Qn (S) <0.10 kU/L Class 0 [facility] Serum tissue transglutaminas e (tTG) IgA antibody assay (units/volume)Ordered By: Erika Culver on 10-11-2024 tTG IgA Qn (S) 3 U/mL 0-3 [facility] Comment on above: Negative 0 - 3 Weak Positive 4 - 10 Positive >10 Tissue Transglutaminase (tTG) has been identified as the endomysial antigen. Studies have demonstr- ated that endomysial IgA antibodies have over 99% specificity for gluten sensitive enteropathy. Serum tuna IgE antibody assa y (units/volume)Ordered By: Erika Culver on 10-11-2024 Tuna IgE Qn (S) <0.10 kU/L Class 0 [facility] Serum wheat IgE antibody ass ay (units/volume)Ordered By: Erika Culver on 10-11-2024 Wheat IgE Qn (S) <0.10 kU/L Class 0 [facility] Serum whole egg IgE antibody assay (units/volume)Ordered By: Erika Culver on 10-11-2024 Whole Egg IgE Qn (S) <0.10 kU/L Class 0 [facility] Comment on above: Performed at: [address] [id number] Director: Ana Sethi MD, Phone: [phone] Service comment (Unsp spec) [Interp]Ordered By: Erika Culver on 10-11-2024 RAST Comment Comment . [facility] Comment on above: Levels of Specific I gE Class Description of Class ----- < 0.10 0 Negative 0.10 - 0.31 0/I Equivocal/Low 0.32 - 0.55 I Low 0.56 - 1.40 II Moderate 1.41 - 3.90 III High 3.91 - 19.00 IV Very High 19.01 - 100.00 V Very High >100.00 Very High Sodium levelOrdered By: Syed Culver on 10-11-2024 Sodium [Moles/Vol] 139 mmol/L 133-145 [facility] Soybean IgE Qn (S)Ordered By : Erika Culver on 10-11-2024 Soybean Allergen (RAST) <0.10 kU/L Class 0 [facility] TSH DL <= 0.005 mIU/L QnOrde red By: Erika Culver on 10-11-2024 Thyroid Stimulating Hormone (TSH) 2.010 uIU/mL 0.300-4.20 0 [facility] TSH Qn 2.010 uIU/mL 0.300-4.20 0 [facility] Thyroid Stim Hormone (TSH)on 10-11-2024 TSH 2.010 uIU/mL Normal 0.300-4.20 0 [facility] Comment on above: Performed By: #### L 501.6710, L2100.0000, L3410.2400, L500.4050, L100.0100, L3300.1200, L3200.1100, L5500.0550, L501.9520 #### [facility] [address] [place], [place], [id number] Total proteinOrdered By: Eyad Culver on 10-11-2024 Protein [Mass/Vol] 7.6 g/dL 5.9-8.4 [facility] Tuna IgE Qn (S)Ordered By: Ivy Culver on 10-11-2024 Tuna Allergen (RAST) <0.10 kU/L Class 0 [facility] Wheat IgE Qn (S)Ordered By: Erika Culver on 10-11-2024 Wheat Allergen (RAST) <0.10 kU/L Class 0 [facility] White blood cell (WBC) count Ordered By: Erika Culver on 10-11-2024 WBC (Bld) [#/Vol] 7.7 10*3/uL 4.4-11.0 [facility] Whole Egg IgE Qn (S)Ordered By: Erika Palomo on 10-11-2024 Egg Whole Allergen <0.10 kU/L Class 0 [facility] Comment on above: Performed at: [address] [id number] Director: Ana Sethi MD, Phone: [phone] tTG IgA Qn (S)Ordered By: Marcus Culver on 10-11-2024 Tissue Transglutaminase IgA Ab 3 U/mL 0-3 [facility] Comment on above: Negative 0 - 3 Weak Positive 4 - 10 Positive >10 Tissue Transglutaminase (tTG) has been identified as the endomysial antigen. Studies have demonstr- ated that endomysial IgA antibodies have over 99% specificity for gluten sensitive enteropathy. Albumin to globulin ratioOrd ered By: Tereso Pereira on 08-07-2024 Albumin/Globulin [Mass ratio] 1.1 {ratio} 0.9-2.4 [facility] Bilirubin, totalOrdered By: Tereso Pereira on 08-07-2024 Bilirubin [Mass/Vol] 0.40 mg/dL 0.20-1.00 [facility] Comment on above: For patients on eltr ombopag therapy, use of Dimension [place] TBIL is not recommended. Blood urea nitrogen (BUN)/cr eatinine ratioOrdered By: Tereso Pereira on 08-07-2024 Urea nitrogen/Creatinine [Mass ratio] 17.6 mg/mg 10-20 [facility] Carbon dioxide measurementOr dered By: Tereso Pereira on 08-07-2024 CO2 [Moles/Vol] 24.0 mmol/L 21.0-32.0 [facility] Chloride measurementOrdered By: Tereso Pereira on 08-07-2024 Chloride [Moles/Vol] 103 mmol/L 98-107 [facility] Comprehensive Metabolic Prof ilon 08-07-2024 Albumin [Mass/Vol] 4.0 g/dL Normal 3.2-5.0 [facility] Comment on above: Performed By: #### L 500.4100, L500.4050 #### [facility] [address] [place], [address] Albumin/Globulin [Mass ratio] 1.1 {ratio} Normal 0.9-2.4 [facility] Comment on above: Performed By: #### L 500.4100, L500.4050 #### [facility] [address] [place], [address] ALK P 131 U/L High 45-117 [facility] Comment on above: Performed By: #### L 500.4100, L500.4050 #### [facility] [address] [place], [address] ALT [Catalytic activity/Vol] 176 U/L High 16-61 [facility] Comment on above: Performed By: #### L 500.4100, [id number] #### [facility] [address] [place], [address] AST [Catalytic activity/Vol] 89 U/L High 15-37 [facility] Comment on above: Performed By: #### L 500.4100, [id number] #### [facility] [address] [place], [address] Bilirubin [Mass/Vol] 0.40 mg/dL Normal 0.20-1.00 [facility] Comment on above: Result Comment: For patients on eltrombopag therapy, use of Dimension [place] TBIL is not recommended. Performed By: #### L 500.4100, L500.4050 #### [facility] [address] [place], [address] BUN/CRE 17.6 RATIO Normal 10-20 [facility] Comment on above: Performed By: #### L 500.4100, [id number] #### [facility] [address] [place], [address] CA,Total 9.1 mg/dL Normal 8.5-10.1 [facility] Comment on above: Performed By: #### L 500.4100, [id number] #### [facility] [address] [place], [address] Chloride [Moles/Vol] 103 mmol/L Normal 98-107 [facility] Comment on above: Performed By: #### L 500.4100, [id number] #### [facility] [address] [place], [address] CO2 [Moles/Vol] 24.0 mmol/L Normal 21.0-32.0 [facility] Comment on above: Performed By: #### L 500.4100, [id number] #### [facility] [address] [place], [address] Creatinine [Mass/Vol] 0.80 mg/dL Normal 0.70-1.30 [facility] Comment on above: Result Comment: The validity of the calculated GFR GFRAA in patients over 70 years has not been determined. Clinical correlation is essential. Performed By: #### L 500.4100, L500.4050 #### [facility] [address] [place], [address] EST GFR - AA 127 mL/min Normal >60 [facility] Comment on above: Result Comment: Afri can Faroese GFR Calc Performed By: #### L 500.4100, [id number] #### [facility] [address] [place], [address] GAP 9 Normal 5-15 [facility] Comment on above: Performed By: #### L 500.4100, [id number] #### [facility] [address] [place], [address] GFR/1.73 sq M.predicted among non-blacks MDRD (S/P/Bld) [Vol rate/Area] 105 mL/min/{1.73_m2} Normal >60 [facility] Comment on above: Result Comment: Non- GFR Calc Performed By: #### L 500.4100, L500.4050 #### [facility] [address] [place], [address] Globulin (S) [Mass/Vol] 3.8 g/dL Normal 2.2-4.2 [facility] Comment on above: Performed By: #### L 500.4100, [id number] #### [facility] [address] [place], [address] Glucose [Mass/Vol] 199 mg/dL High 74-106 [facility] Comment on above: Result Comment: Fast ing Glucose result greater than or equal to 126 mg/dL suggests DIABETES MELLITUS per A.D.A. criteria. Performed By: #### L 500.4100, [id number] #### [facility] [address] [place], [address] Potassium [Moles/Vol] 4.0 mmol/L Normal 3.5-5.1 [facility] Comment on above: Performed By: #### L 500.4100, [id number] #### [facility] [address] [place], [address] Sodium [Moles/Vol] 136 mmol/L Normal 136-145 [facility] Comment on above: Performed By: #### L 500.4100, [id number] #### [facility] [address] [place], [address] T PROT 7.8 g/dL Normal 6.4-8.2 [facility] Comment on above: Performed By: #### L 500.4100, [id number] #### [facility] [address] [place], [address] Urea nitrogen [Mass/Vol] 14 mg/dL Normal 7-18 [facility] Comment on above: Performed By: #### L 500.4100, [id number] #### [facility] [address] [place], [place], [id number] Estimated glomerular filtrat ion rate (GFR) AmericanOrdered By: Tereso Pereira on 08-07-2024 Estimated GFR (MDRD) Amer 127 mL/min >60 [facility] Comment on above: GFR Calc Glomerular filtration rate ( GFR)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 9:5 4am EORDER October 11, 2024 12: 33pm EORDER- STOOL October 22, 2024 2:0 3pm Reason for Visit Admit Date Diarrhea October 11, 2024 9:5 4am Irritable bowel syndrome with diarrhea [facility] 2024 9:54am Reese esophagus October 11, 2024 9:5 4am Diarrhea October 30, 2024 8:47 am Irritable bowel syndrome with diarrhea A pril 2024 8:47am Reese esophagus October 30, 2024 8:47 am Chief Complaint Admit Date Pre EGD October 11, 2024 9:5 4am EORDER October 11, 2024 12: 33pm EORDER- STOOL October 22, 2024 2:0 3pm ELEVATED LIVER ENZYMES November 05, 2024 9 :17am Chief Complaint Admit Date Pre EGD October 11, 2024 9:5 4am EORDER October 11, 2024 12: 33pm EORDER- STOOL October 22, 2024 2:0 3pm ELEVATED LIVER ENZYMES November 05, 2024 9 :17am ELEVATED LIVER ENZYMES November 15, 2024 10:58am Chief Complaint Admit Date EORDER- STOOL October 22, 2024 2:0 3pm ELEVATED LIVER ENZYMES November 05, 2024 9 :17am ELEVATED LIVER ENZYMES November 15, 2024 10:58am LUMBAR SPINE February 14, 2025 8:57 am Room 6 February 14, 2025 9:08 am Reason for Visit Admit Date Diarrhea October 30, 2024 8:47 am Irritable bowel syndrome with diarrhea A pril 2024 8:47am Reese esophagus October 30, 2024 8:47 am Reason for Visit Admit Date Diarrhea October 30, 2024 8:47 am Irritable bowel syndrome with diarrhea A pril 2024 8:47am Reese esophagus October 30, 2024 8:47 am 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 DATE CREATED AUTHOR AUTHOR'S ORGANIZ ATION 02/18/2025 [facility] Goals (unrecognized section and content) Goals may be documented in a n alternate sectionGoals may be documented in an alternate sectionGoals may be documented in an alternate sectionGoals may be documented in an alternate sectionGoals may be documented in an alternate sectionGoals may be documented in an alternate sectionGoals may be documented in an alternate section Care Teams (unrecognized sec tion and content) Team Status: Active Member Role Status Dates Dr. Tereso Pereira MD Family Provider Active Dr. Tereso Pereira MD Primary Care Provider Active Team Status: Inactive Member Role Status Dates Dr. Tereso Pereira MD Primary Care Provi aleksandar, Attending Provider, Referring Provider Active Team Status: Active Member Role Status Dates Dr. Tereso Pereira MD Primary Care Provi aleksandar, Attending Provider, Referring Provider Active Team Status: Inactive Member Role Status Dates Dr. Tereso Pereira MD Primary Care Provider Active Dr. Mariusz Harris MD Attending Provider, Referring Pr ovider Active Team Status: Active Member Role Status Dates Dr. Tereso Pereira MD Primary Care Provider Active Team Status: Inactive Member Role Status Dates Dr. Tereso Pereira MD Primary Care Provider Active Start: August 07, 2024 End: August 07, 2024 Dr. Tereso Pereira MD Attending Provider Active Start: August 07, 2024 End: August 07, 2024 Dr. Tereso Pereira MD Referring Provider Active Start: August 07, 2024 End: August 07, 2024 Team Status: Inactive Member Role Status Dates Dr. Tereso Pereira MD Primary Care Provider Active Start: October 11, 2024 End: October 11, 2024 Dr. Tereso Pereira MD Referring Provider Active Start: October 11, 2024 End: October 11, 2024 PRECIOUS Soto Attending Provider Active S tart: October 11, 2024 End: October 11, 2024 Team Status: Inactive Member Role Status Dates Dr. Tereso Pereira MD Primary Care Provider Active Start: October 11, 2024 End: October 11, 2024 PRECIOUS Soto Attending Provider Active S tart: October 11, 2024 End: October 11, 2024 PRECIOUS Soto Referring Provider Active S tart: October 11, 2024 End: October 11, 2024 Team Status: Inactive Member Role Status Dates Dr. Tereso Pereira MD Primary Care Provider Active Start: October 22, 2024 End: October 22, 2024 PRECIOUS Soto Attending Provider Active S tart: October 22, 2024 End: October 22, 2024 PRECIOUS Soto Referring Provider Active S tart: October 22, 2024 End: October 22, 2024 Team Status: Inactive Member Role Status Dates Dr. Tereso Pereira MD Primary Care Provider Active Start: October 30, 2024 End: October 30, 2024 Dr. Tereso Pereira MD Referring Provider Active Start: October 30, 2024 End: October 30, 2024 Dr. Liu Carcamo DO Attending Provider Active Start: October 30, 2024 End: October 30, 2024 Team Status: Active Member Role Status Dates Dr. Tereso Pereira MD Primary Care Provider Active Start: October 30, 2024 Dr. Tereso Pereira MD Referring Provider Active Start: October 30, 2024 Dr. Liu Carcamo DO Attending Provider Active Start: October 30, 2024 Dr. Liu Carcamo DO Other Provider Active St art: October 30, 2024 Team Status: Inactive Member Role Status Dates Dr. Tereso Pereira MD Primary Care Provider Active Start: November 05, 2024 End: November 05, 2024 PRECIOUS Soto Attending Provider Active S tart: November 05, 2024 End: November 05, 2024 PRECIOUS Soto Referring Provider Active S tart: November 05, 2024 End: November 05, 2024 Team Status: Active Member Role/Relationship Status Dates Dr. Tereso Pereira MD Primary Care Provider Active Team Status: Inactive Member Role/Relationship Status Dates Dr. Tereso Pereira MD Primary Care Provider Active Start: October 11, 2024 End: October 11, 2024 Dr. Tereso Pereira MD Referring Provider Active Start: October 11, 2024 End: October 11, 2024 PRECIOUS Soto Attending Provider Active S tart: October 11, 2024 End: October 11, 2024 Team Status: Inactive Member Role/Relationship Status Dates Dr. Tereso Pereira MD Primary Care Provider Active Start: October 11, 2024 End: October 11, 2024 Erika Culver NP-C Attending Provider Active S tart: October 11, 2024 End: October 11, 2024 Erika Culver HOUSEKEEPING LAUNDRY WORKER-C Referring Provider Active S tart: October 11, 2024 End: October 11, 2024 Team Status: Inactive Member Role/Relationship Status Dates Dr. Tereso Pereira MD Primary Care Provider Active Start: October 22, 2024 End: October 22, 2024 Erika Culver HOUSEKEEPING LAUNDRY WORKER-C Attending Provider Active S tart: October 22, 2024 End: October 22, 2024 Erika Culver HOUSEKEEPING LAUNDRY WORKER-C Referring Provider Active S tart: October 22, 2024 End: October 22, 2024 Team Status: Inactive Member Role/Relationship Status Dates Dr. Tereso Pereira MD Primary Care Provider Active Start: October 30, 2024 End: October 30, 2024 Dr. Tereso Pereira MD Referring Provider Active Start: October 30, 2024 End: October 30, 2024 Dr. Liu Carcamo DO Attending Provider Active Start: October 30, 2024 End: October 30, 2024 Team Status: Active Member Role/Relationship Status Dates Dr. Tereso Pereira MD Primary Care Provider Active Start: October 30, 2024 Dr. Tereso Pereira MD Referring Provider Active Start: October 30, 2024 Dr. Liu Carcamo DO Attending Provider Active Start: October 30, 2024 Dr. Liu Carcamo DO Other Provider Active St art: October 30, 2024 Team Status: Inactive Member Role/Relationship Status Dates Dr. Tereso Pereira MD Primary Care Provider Active Start: November 05, 2024 End: November 05, 2024 Erika Culver NP-C Attending Provider Active S tart: November 05, 2024 End: November 05, 2024 Erika Culver HOUSEKEEPING LAUNDRY WORKER-C Referring Provider Active S tart: November 05, 2024 End: November 05, 2024 Team Status: Inactive Member Role/Relationship Status Dates Dr. Tereso Pereira MD Primary Care Provider Active Start: November 15, 2024 End: November 15, 2024 Erika Culver NP-C Attending Provider Active S tart: November 15, 2024 End: November 15, 2024 Erika Culver HOUSEKEEPING LAUNDRY WORKER-C Referring Provider Active S tart: November 15, 2024 End: November 15, 2024 Team Status: Inactive Member Role/Relationship Status Dates Dr. Tereso Pereira MD Primary Care Provider Active Start: February 03, 2025 End: February 03, 2025 Dr. Tereso Pereira MD Attending Provider Active Start: February 03, 2025 End: February 03, 2025 Dr. Tereso Pereira MD Referring Provider Active Start: February 03, 2025 End: February 03, 2025 Team Status: Inactive Member Role/Relationship Status Dates Dr. Tereso Pereira MD Primary Care Provider Active Start: October 22, 2024 End: October 22, 2024 Erika Culver NP-C Attending Provider Active S tart: October 22, 2024 End: October 22, 2024 Erika Culver NP-C Referring Provider Active S tart: October 22, 2024 End: October 22, 2024 Team Status: Inactive Member Role/Relationship Status Dates Dr. Tereso Pereira MD Primary Care Provider Active Start: October 30, 2024 End: October 30, 2024 Dr. Tereso Pereira MD Referring Provider Active Start: October 30, 2024 End: October 30, 2024 Dr. Liu Carcamo DO Attending Provider Active Start: October 30, 2024 End: October 30, 2024 Team Status: Active Member Role/Relationship Status Dates Dr. Tereso Pereira MD Primary Care Provider Active Start: October 30, 2024 Dr. Tereso Pereira MD Referring Provider Active Start: October 30, 2024 Dr. Liu Carcamo DO Attending Provider Active Start: October 30, 2024 Dr. Liu Carcamo DO Other Provider Active St art: October 30, 2024 Team Status: Inactive Member Role/Relationship Status Dates Dr. Tereso Pereira MD Primary Care Provider Active Start: November 05, 2024 End: November 05, 2024 Erika Culver NP-C Attending Provider Active S tart: November 05, 2024 End: November 05, 2024 Erika Culver NP-C Referring Provider Active S tart: November 05, 2024 End: November 05, 2024 Team Status: Inactive Member Role/Relationship Status Dates Dr. Tereso Pereira MD Primary Care Provider Active Start: November 15, 2024 End: November 15, 2024 Erika Culver [employer]-C Attending Provider Active S tart: November 15, 2024 End: November 15, 2024 Erika Culver , [employer]-C Referring Provider Active S tart: November 15, 2024 End: November 15, 2024 Team Status: Inactive Member Role/Relationship Status Dates Dr. Tereso Pereira MD Primary Care Provider Active Start: February 03, 2025 End: February 03, 2025 Dr. Tereso Pereira MD Attending Provider Active Start: February 03, 2025 End: February 03, 2025 Dr. Tereso Pereira MD Referring Provider Active Start: February 03, 2025 End: February 03, 2025 Team Status: Active Member Role/Relationship Status Dates Dr. Tereso Pereira MD Primary Care Provider Active Start: February 14, 2025 Dr. Tereso Pereira MD Referring Provider Active Start: February 14, 2025 LUIZA Reagan Attending Provider Active Star t: February 14, 2025 Team Status: Inactive Member Role/Relationship Status Dates Dr. Tereso Pereira MD Primary Care Provider Active Start: February 14, 2025 End: February 14, 2025 Dr. Driss Wilson MD Attending Provider Active S tart: February 14, 2025 End: February 14, 2025 Team Status: Inactive Member Role/Relationship Status Dates Dr. Tereso Pereira MD Primary Care Provider Active Start: February 14, 2025 End: February 14, 2025 Dr. Tereso Pereira MD Referring Provider Active Start: February 14, 2025 End: February 14, 2025 LUIZA Reagan Attending Provider Active Star t: February 14, 2025 End: February 14, 2025 FOR RECORDS PERTAINING TO PATIENTS WHO ARE [...] BE BASED ON THE PRIMARY CLINICAL RECORDS. [employer] provides no warranty or guarantee of the accuracy or completeness of information in this document.
== END | disposition home or self-care (01) ==
LOC: OPMRI 08:13
PROVIDERS: PCP Family Medicine; Referring Provider Student in an Organized Health Care Education/Training Program; Visit Provider Student in an Organized Health Care Education/Training Program
DX: M51.360 Other intervertebral disc degeneration, lumbar region with discogenic back pain only (principal); M43.17 Spondylolisthesis, lumbosacral region
CPT/HCPCS: 72148

== ENCOUNTER → 2025-04-09 | Outpatient (CLI) | payer MEDICARE, MEDICAID, SELFPAY ==
[2025-04-09 15:29] LABS: Hematocrit 44.9 % (40-54); Hemoglobin 15.2 g/dL (13.0-16.5); Immature Granulocytes Count 0.060 X10^3/uL (0.0-0.0); Mean Corp Hgb Conc 33.9 g/dL (32-36); Mean Corpuscular Volume 93.2 fL (80-94); Mean Platelet Vol. 11.6 fl (6.2-12.0); NRBC Flagged by Analyzer 0 % (0-5); Platelet Count 252 K/mm3 (150-450); RBC Distribution Width CV 12.7 % (11.6-14.6); RBC Distribution Width SD 43.3 fl (35.1-43.9); Red Blood Count 4.82 M/mm3 (4.6-6.2); White Blood Count 6.7 K/mm3 (4.4-11.0)
[2025-04-09 15:58] LABS: AST(SGOT) 50 U/L (<=37); Alanine Aminotransfer ALT/SGPT 89 U/L (<=46); Albumin, Serum 4.5 g/dL (3.4-4.8); Alkaline Phosphatase 128 U/L (40-129); Anion Gap 16 (5-15); BUN 13 mg/dL (4-19); BUN/Creat Ratio 16.1 RATIO (10-20); Calcium,Total 9.2 mg/dL (7.6-11.0); Carbon Dioxide 22.2 mmol/L (21.0-32.0); Chloride 102 mmol/L (98-108); Globulin 3.1 g/dL (2.2-4.2); Glucose 318 mg/dL (70-99); Potassium 4.1 mmol/L (3.3-5.1)
== END | disposition home or self-care (01) ==
LOC: MFPLAB 11:58
PROVIDERS: PCP Family Medicine; Visit Provider Family Medicine
DX: Z01.818 Encounter for other preprocedural examination (principal); R74.8 Abnormal levels of other serum enzymes
CPT/HCPCS: 36415; 80053; 85025

== ENCOUNTER → 2025-05-22 | Outpatient (CLI) | payer MEDICARE, MEDICAID, SELFPAY ==
[2025-05-22 10:24] LABS: Hematocrit 45.2 % (40-54); Hemoglobin 15.7 g/dL (13.0-16.5); Immature Granulocytes Count 0.120 X10^3/uL (0.0-0.0); Mean Corp Hgb Conc 34.7 g/dL (32-36); Mean Corpuscular Volume 91.5 fL (80-94); Mean Platelet Vol. 10.3 fl (6.2-12.0); NRBC Flagged by Analyzer 0 % (0-5); Platelet Count 270 K/mm3 (150-450); RBC Distribution Width CV 12.8 % (11.6-14.6); RBC Distribution Width SD 41.8 fl (35.1-43.9); Red Blood Count 4.94 M/mm3 (4.6-6.2); White Blood Count 8.4 K/mm3 (4.4-11.0)
[2025-05-22 10:57] LABS: Cholesterol 172 mg/dL (<=200); Low Density Lipoprotein Calc. 85 mg/dL; Triglycerides 175 mg/dL; Very Low Density Lipoprotein 35 mg/dL (5-40); cholesterol:hdl ratio screen 3.02
[2025-05-22 11:53] LABS: AST(SGOT) 50 U/L (<=37); Alanine Aminotransfer ALT/SGPT 80 U/L (<=46); Albumin, Serum 4.2 g/dL (3.4-4.8); Alkaline Phosphatase 115 U/L (40-129); Anion Gap 12 (5-15); BUN 17 mg/dL (4-19); BUN/Creat Ratio 24.9 RATIO (10-20); Calcium,Total 9.3 mg/dL (7.6-11.0); Carbon Dioxide 25.7 mmol/L (21.0-32.0); Chloride 103 mmol/L (98-108); Globulin 3.2 g/dL (2.2-4.2); Glucose 161 mg/dL (70-99); Potassium 4.0 mmol/L (3.3-5.1)
== END | disposition home or self-care (01) ==
LOC: MFPLAB 09:20
PROVIDERS: PCP Family Medicine; Visit Provider Family Medicine
DX: E11.9 Type 2 diabetes mellitus without complications (principal); E78.5 Hyperlipidemia, unspecified
CPT/HCPCS: 36415; 80053; 80061; 83036; 85025

== ENCOUNTER → 2025-06-02 | Outpatient (CLI) | payer MEDICARE, MEDICAID, SELFPAY ==
[2025-06-02 18:13] LABS: AST(SGOT) 50 U/L (<=37); Alanine Aminotransfer ALT/SGPT 91 U/L (<=46); Albumin, Serum 4.5 g/dL (3.4-4.8); Alkaline Phosphatase 102 U/L (40-129); Anion Gap 14 (5-15); BUN 21 mg/dL (4-19); BUN/Creat Ratio 36.2 RATIO (10-20); Calcium,Total 9.4 mg/dL (7.6-11.0); Carbon Dioxide 21.9 mmol/L (21.0-32.0); Chloride 104 mmol/L (98-108); Globulin 2.8 g/dL (2.2-4.2); Glucose 87 mg/dL (70-99); Potassium 4.1 mmol/L (3.3-5.1)
== END | disposition home or self-care (01) ==
LOC: MFPLAB 11:35
PROVIDERS: PCP Family Medicine; Visit Provider Family Medicine
DX: R79.89 Other specified abnormal findings of blood chemistry (principal)
CPT/HCPCS: 36415; 80053

== ENCOUNTER 2025-06-06 14:32 | Outpatient (CLI) | payer MEDICARE, MEDICAID, SELFPAY ==
[2025-06-06 17:57] LABS: Magnesium 2.1 mg/dL (1.5-2.2)
== END 2025-06-06 23:59 | disposition home or self-care (01) ==
LOC: MFPLAB 14:33
PROVIDERS: Anesthesiology; PCP Family Medicine; Visit Provider Orthopaedic Surgery Orthopaedic Surgery of the Spine
DX: Z01.818 Encounter for other preprocedural examination (principal)
CPT/HCPCS: 36415; 83036; 83735; 86850; 86900; 86901; 87081